=== PATIENT | female | born 1970 | race Caucasian/White ===

== ENCOUNTER → 2016-02-27 | Outpatient (CLI) | payer OTHER ==
--- NOTE | 2016-02-28 08:41 | MM ---
Reason for exam: screening (asymptomatic). Last mammogram was performed 4 years and 1 month ago. Physical Findings: A clinical breast exam by your physician is recommended on an annual basis and results should be correlated with mammographic findings. MG Screening Mammo w CAD Bilateral CC and MLO view(s) were taken. Prior study comparison: February 06, 2012, bilateral digital screening mammo w/CAD. There are scattered fibroglandular densities. There is no discrete abnormality. ASSESSMENT: Negative, BI-RAD 1 RECOMMENDATION: Routine screening mammogram of both breasts in 1 year.
== END | disposition home or self-care (01) ==
LOC: RADMAMWWP 07:09
PROVIDERS: ATTEND Family Medicine
DX: Z12.31 Encounter for screening mammogram for malignant neoplasm of breast (principal)

== ENCOUNTER → 2016-08-09 | Outpatient (CLI) | payer OTHER ==
[2016-08-09 13:00] VITALS: BP 145/87; PULSE 58; RESP 20; TEMP 97; BMI 55.7
[2016-08-09 13:50] LABS: EKG EKG PERFORMED
[2016-08-09 14:42] LABS: Appearance,Urine Clear (Clear); Bilirubin,Urine Negative (Negative); Glucose,Urine (UA) Negative (Negative); Ketones,Urine Negative (Negative); Leukocyte Esterase,Urine Negative (Negative); Nitrite,Urine Negative (Negative); Protein,Urine Negative (Negative); Specific Gravity,Urine 1.013 (1.001-1.035); UA Billing (MACRO vs. MICRO) CHEM; Urobilinogen,Urine <2.0 mg/dL (<2.0)
[2016-08-09 14:44] LABS: CH 32.3; CHCM 33.1; HCT 44.4 % (34.0-46.0); HDW 2.46; HGB 14.7 gm/dL (11.4-16.0); MCH 32.4 pg (25.0-35.0); MCHC 33.1 g/dL (31.0-37.0); MCV 97.9 fL (80.0-100.0); Mean Platelet Volume 7.7; RBC 4.53 m/uL (3.80-5.40); RDW 13.5 % (11.5-15.5); WBC 8.6 k/uL (3.8-10.6)
[2016-08-09 14:56] LABS: ALT 104 U/L (9-52); AST 28 U/L (14-36); Alkaline Phosphatase 104 U/L (38-126); Anion Gap 13 mmol/L; Blood Urea Nitrogen 16 mg/dL (7-17); Calcium 9.6 mg/dL (8.4-10.2); Carbon Dioxide 25 mmol/L (22-30); Chloride 103 mmol/L (98-107); Cholesterol 203 mg/dL (<200); Glucose 102 mg/dL (74-99); HDL Cholesterol 77 mg/dL (40-60); Iron 73 ug/dL (37-170); Non-African American GFR(MDRD) >60 (>60 ml/min/1.73 sqM); Potassium 4.6 mmol/L (3.5-5.1); Sodium 141 mmol/L (137-145); Total Bilirubin 0.4 mg/dL (0.2-1.3); Total Protein 7.1 g/dL (6.3-8.2); Triglycerides 107 mg/dL (<150)
[2016-08-09 15:06] LABS: % Iron Saturation 18.3 % (20-50); Total Iron Binding Capacity 398 ug/dL (265-497)
[2016-08-09 15:11] LABS: Prolactin 6.5 ng/mL (3.0-18.6)
[2016-08-09 15:55] LABS: Hemoglobin A1C 5.4 % (4.2-6.1)
[2016-08-09 15:59] LABS: Vitamin B12 275 pg/mL (239-931)
[2016-08-09 19:30] LABS: DHEA Sulfate 175.6 ug/dL (26.0-430.0)
[2016-08-09 20:51] LABS: Urine Creatinine 110.4 mg/dL
[2016-08-13 19:06] LABS: Thyrotropin Binding Inhib Ig 9 (< 17)
--- NOTE | 2016-08-22 19:32 | P.PN ---
Progress Note - Text DATE OF SERVICE: 08/09/2016 REASON FOR CONSULTATION: Initial bariatric evaluation. HISTORY OF PRESENT ILLNESS: The patient is a 46-year-old female who presents with a long-standing history of morbid obesity. At her height of 5 foot 4.25, her ideal body weight is 144 pounds. Today she comes in at 327 pounds. She is 183 pounds overweight. She has tried calorie stricture and including commercial diets with minimal success. She has a family history of morbid obesity whereby her sister had a sleeve gastrectomy and doing quite well. She has developes lower back pain, hip pain, and diabetes type 2 non-insulin- dependent from her obesity. She reports depression. She is maintaining a food and exercise journal. She is completing medical risk assessment including medical supervised weight loss with her primary care provider. She denies any family history or personal history of Crohn's disease, gastrointestinal cancer, DVTs or pulmonary embolisms. She has a strong family history of gastroesophageal reflux disease including esophageal dysmotility. She comes in for evaluation for bariatric surgery. She is evaluating for the sleeve gastrectomy. PAST MEDICAL HISTORY: 1. Diabetes type 2. 2. Depression. 3. Morbid obesity. 4. Osteoarthritis of the bilateral hips. 5. Osteoarthritis of the bilateral knees. PAST SURGICAL HISTORY: 1. Denies any upper endoscopies. 2. Tubal ligation. HOME MEDICATIONS: 1. Prozac. 2. Metformin. ALLERGIES: None. SOCIAL HISTORY: No active tobacco use. She is a past tobacco user. FAMILY HISTORY: Denies any DVTs, pulmonary embolisms in her family. Denies any ulcerative colitis disease or Crohn's. She does have a family history of morbid obesity. He strong family history of esophageal dysmotility including gastroesophageal reflux disease. Also has a family history of gallbladder disorder. REVIEW OF ORGAN SYSTEMS: CONSTITUTIONAL: t her height of 5 foot 4.25, her ideal body weight is 144 pounds. Today she comes in at 327 pounds. She is 183 pounds overweight. HEENT: Denies any active troubles with vision or hearing. ENDOCRINE: No reports of hypothyroidism. Has insulin resistance with diabetes. CARDIOVASCULAR: No reports of palpitations or heart attacks or chest pain. RESPIRATORY: Has daytime somnolence including snoring, suspicious for sleep apnea. No recent asthma. GI: Denies any bright red blood per rectum, diarrhea or constipation. Has intermittent heartburn. MUSCULOSKELETAL: Describes generalized muscle aches, including lower back pain or joint pain. NEURO: No reports of headaches or seizure disorders. PSYCH: Has depression without suicidal ideation. HEMATOLOGIC: Denies any abnormal bleeding or bruising. PHYSICAL EXAM: VITAL SIGNS: height 5 foot 4.25 inches, weight 327 pounds. BMI 55.7 Vital Signs Temp 97 F L 08/09/16 11:52 Pulse 58 L 08/09/16 11:52 Resp 20 08/09/16 11:52 BP 145/87 08/09/16 11:52 Pulse Ox GENERAL: Well-developed female in no acute distress. HEENT: No scleral icterus. Extraocular was grossly intact. No nasal drainage. NECK: Supple without lymphadenopathy. Neck measurement 14-3/4 inches. CHEST: Nonlabored respirations with equal bilateral excursions. CARDIOVASCULAR: Regular rate. Distal 2+ pulses. ABDOMEN: Obese, soft, nontender, nondistended. MUSCULOSKELETAL: No clubbing, cyanosis, or edema. Gross strength 5/5 distal lower extremities. NEURO: No focal or lateralizing signs. Cranial nerves 2 through 12 grossly within normal limits. PSYCH: Appropriate affect. Alert and oriented to person, place and time. Laboratory Last Values WBC 8.6 k/uL (3.8-10.6) 08/09/16 13:44 RBC 4.53 m/uL (3.80-5.40) 08/09/16 13:44 Hgb 14.7 gm/dL (11.4-16.0) 08/09/16 13:44 Hct 44.4 % (34.0-46.0) 08/09/16 13:44 MCV 97.9 fL (80.0-100.0) 08/09/16 13:44 MCH 32.4 pg (25.0-35.0) 08/09/16 13:44 MCHC 33.1 g/dL (31.0-37.0) 08/09/16 13:44 RDW 13.5 % (11.5-15.5) 08/09/16 13:44 Plt Count 315 k/uL (150-450) 08/09/16 13:44 Sodium 141 mmol/L (137-145) 08/09/16 13:44 Potassium 4.6 mmol/L (3.5-5.1) 08/09/16 13:44 Chloride 103 mmol/L (98-107) 08/09/16 13:44 Carbon Dioxide 25 mmol/L (22-30) 08/09/16 13:44 Anion Gap 13 mmol/L 08/09/16 13:44 BUN 16 mg/dL (7-17) 08/09/16 13:44 Creatinine 0.90 mg/dL (0.52-1.04) 08/09/16 13:44 Est GFR (MDRD) Af Amer >60 (>60 ml/min/1.73 sqM) 08/09/16 13:44 Est GFR (MDRD) Non-Af >60 (>60 ml/min/1.73 sqM) 08/09/16 13:44 Glucose 102 mg/dL (74-99) H 08/09/16 13:[address] Glu mg/dL 108 mg/dL 08/09/16 13:44 Hemoglobin A1c 5.4 % (4.2-6.1) 08/09/16 13:44 Calcium 9.6 mg/dL (8.4-10.2) 08/09/16 13:44 Iron 73 ug/dL (37-170) 08/09/16 13:44 TIBC 398 ug/dL (265-497) 08/09/16 13:44 % Saturation 18.3 % (20-50) L 08/09/16 13:44 Ferritin 15 ng/mL (6-137) 08/09/16 13:44 Total Bilirubin 0.4 mg/dL (0.2-1.3) 08/09/16 13:44 AST 28 U/L (14-36) 08/09/16 13:44 ALT 104 U/L (9-52) H 08/09/16 13:44 Alkaline Phosphatase 104 U/L (38-126) 08/09/16 13:44 Total Protein 7.1 g/dL (6.3-8.2) 08/09/16 13:44 Albumin 4.1 g/dL (3.5-5.0) 08/09/16 13:44 Triglycerides 107 mg/dL (<150) 08/09/16 13:44 Cholesterol 203 mg/dL (<200) H 08/09/16 13:44 LDL Cholesterol, Calc 105 mg/dL (0-99) H 08/09/16 13:44 HDL Cholesterol 77 mg/dL (40-60) H 08/09/16 13:44 Vitamin B1 59 ug/L (38-122) 08/09/16 13:44 Vitamin B12 275 pg/mL (239-931) 08/09/16 13:44 Vitamin D 25-Hydroxy 20.6 ng/mL (30.0-100.0) L 08/09/16 13:44 Folate 12.80 ng/mL (>2.75) 08/09/16 13:44 TSH 2.390 mIU/L (0.465-4.680) 08/09/16 13:44 Prolactin 6.5 ng/mL (3.0-18.6) 08/09/16 13:44 DHEA Sulfate 175.6 ug/dL (26.0-430.0) 08/09/16 13:44 Cortisol 7 ug/dL 08/09/16 13:44 Urine Color Yellow 08/09/16 13:44 Urine Appearance Clear (Clear) 08/09/16 13:44 Urine pH 5.0 (5.0-8.0) 08/09/16 13:44 Ur Specific Banner 1.013 (1.001-1.035) 08/09/16 13:44 Urine Protein Negative (Negative) 08/09/16 13:44 Urine Glucose (UA) Negative (Negative) 08/09/16 13:44 Urine Ketones Negative (Negative) 08/09/16 13:44 Urine Blood Negative (Negative) 08/09/16 13:44 Urine Nitrite Negative (Negative) 08/09/16 13:44 Urine Bilirubin Negative (Negative) 08/09/16 13:44 Urine Urobilinogen <2.0 mg/dL (<2.0) 08/09/16 13:44 Ur Leukocyte Esterase Negative (Negative) 08/09/16 13:44 Ur Random Microalbumin <0.3 mg/dL (0.0-1.9) 08/09/16 13:44 U Creat (Microalbumin) 110.4 mg/dL 08/09/16 13:44 Microalb/Creat Ratio <30 mg/g Creat (0-30) 08/09/16 13:44 TSH Bind Inhibitory Ig 9 (< 17) 08/09/16 13:44 EKG EKG PERFORMED 08/09/16 13:44 Miscellaneous Test Heroin, Urine 08/09/16 13:51 Misc Test Result See comment 08/09/16 13:51 ASSESSMENT: 1. Morbid obesity due to excess calories. 2. Body mass index of 55.7. 3. Diabetes type 2. 4. Family history of morbid obesity. 5. Sleep disturbance, obstructive sleep apnea. 6. Depression. 7. Family history of gastroesophageal reflux disease. 8. Osteoarthritis of the bilateral hips. 9. Osteoarthritis of the bilateral knees. 10. Gastroesophageal reflux disease. 11. Family history of esophageal dysmotility. 12. Dietary surveillance and counseling. 13. Hypertension. 14. Family history of gallbladder disease. 15. Vitamin D deficiency. 16. Hypercholesterolemia. PLAN: 1. I have recommended that she proceed with an upper endoscopy as she has history of reflux disease. 2. Per insurance guidelines, medical supervised weight loss was described. Also recommend food and exercise journal. 3. Recommend a bariatric metabolic panel to evaluate for micro, including macronutrient deficiencies. 4. Dietary surveillance and counseling was reviewed. I have asked her to increase her protein intake to at least 70 grams daily. 5. Recommend follow-up after upper endoscopy. 6. Upon further discussion, she tested positive for a questionnaire for obstructive sleep apnea. Referral to the sleep center has also been described. 7. Urine metabolite and drug screening per insurance guidelines. 8. Psych assessment recommended with history of depression. 9. She reports intermittent right upper quadrant abdominal pain including family history of gallbladder disease, recommend right upper quadrant ultrasound for gallstones. Thank you for this consultation.
== END | disposition home or self-care (01) ==
LOC: BARWHC3 10:14
PROVIDERS: ATTEND Surgery Plastic and Reconstructive Surgery
DX: E66.01 Morbid (severe) obesity due to excess calories (principal); E11.9 Type 2 diabetes mellitus without complications; G47.33 Obstructive sleep apnea (adult) (pediatric); F32.9 Major depressive disorder, single episode, unspecified; M16.0 Bilateral primary osteoarthritis of hip; M17.0 Bilateral primary osteoarthritis of knee; K21.9 Gastro-esophageal reflux disease without esophagitis; I10 Essential (primary) hypertension; E55.9 Vitamin D deficiency, unspecified; E78.00 Pure hypercholesterolemia, unspecified; D35.2 Benign neoplasm of pituitary gland; E88.1 Lipodystrophy, not elsewhere classified; E24.0 Pituitary-dependent Cushing's disease; D50.8 Other iron deficiency anemias; E44.1 Mild protein-calorie malnutrition; Z79.899 Other long term (current) drug therapy; Z98.84 Bariatric surgery status; Z68.43 Body mass index [BMI] 50.0-59.9, adult
CPT/HCPCS: 84425; 80061; 80053; 83519; 82533; 82607; 82728; 83036; 82746; 83540; 83550; 84443; 85027; 81003; 84146; 82627; 82306; 80307; 82043; 82570; 93005; 36415; G0480; G0463; 80356; 99201

== ENCOUNTER → 2016-08-23 | Outpatient (CLI) | payer OTHER ==
--- NOTE | 2016-08-23 07:29 | US ---
EXAMINATION TYPE: US gallbladder DATE OF EXAM: 08/23/2016 COMPARISON: NONE CLINICAL HISTORY: R10.11 RUQ ABD PAIN. large habitus, nausea, pain EXAM MEASUREMENTS: Liver Length: 20.7 cm Gallbladder Wall: 0.7 cm CBD: 0.9 cm Right Kidney: 9.9 x 4.5 x 4.5 cm Pancreas: Obscured by bowel gas Liver: hepatomegaly, attenuating Gallbladder: contracted with stones, GEENA sign Evidence for sonographic Marrero's sign: no CBD: dilated Right Kidney: wnl IMPRESSION: 1. Probable hepatic steatosis with hepatomegaly. 2. The gallbladder is full of gallstones. Common bile duct is dilated.
--- NOTE | 2016-08-23 12:03 | NM ---
EXAMINATION TYPE: NM hepatobiliary wo EF DATE OF EXAM: 08/23/2016 COMPARISON: NONE HISTORY: Right upper quadrant pain TECHNIQUE: After the intravenous administration of 5.49 mCi Tc 99m Mebrofenin hepatobiliary scintigra phy is performed. Immediate images post injection. FINDINGS: Gallbladder activity is never definitely identified as far as 4 hours. Small bowel activity is noted within 20 minutes. Ejection fraction was not performed. IMPRESSION: MARKED GALLBLADDER DYSFUNCTION VERSUS OCCLUDED CYSTIC DUCT.
== END | disposition home or self-care (01) ==
LOC: RADUSWWP 06:55
PROVIDERS: ATTEND Surgery Plastic and Reconstructive Surgery
DX: K80.20 Calculus of gallbladder without cholecystitis without obstruction (principal); R16.1 Splenomegaly, not elsewhere classified; R10.11 Right upper quadrant pain
CPT/HCPCS: 76705; 78226; A9537

== ENCOUNTER 2016-08-29 09:16 | Day surgery (SDC) | payer OTHER ==
[2016-08-28 08:28] VITALS: BMI 56.1
--- NOTE | 2016-08-29 07:39 | P.GSHP ---
History of Present Illness H&P Date: 08/29/16 CHIEF COMPLAINT: GERD HISTORY OF PRESENT ILLNESS: The patient is a 46-year-old female who presents reports gastroesophageal reflux disease. Upper endoscopy was offered for further evaluation and management. PAST MEDICAL HISTORY: Please see list. PAST SURGICAL HISTORY: Please see list. MEDICATIONS: Please see list. ALLERGIES: Please see list. SOCIAL HISTORY: No illicit drug use FAMILY HISTORY: No reports of Crohn disease or ulcerative colitis. REVIEW OF ORGAN SYSTEMS: CONSTITUTIONAL: No reports of fevers or chills. GI: Denies any blood in stools or constipation. PHYSICAL EXAM: VITAL SIGNS: Stable GENERAL: Well-developed and pleasant in no acute distress. HEENT: No scleral icterus. Extraocular movements grossly intact. Moist buccal mucosa. NECK: Supple without lymphadenopathy. CHEST: Unlabored respirations. Equal bilateral excursions. CARDIOVASCULAR: Regular rate and rhythm. Distal 2+ pulses. ABDOMEN: Soft, nondistended. MUSCULOSKELETAL: No clubbing, cyanosis, or edema. ASSESSMENT: 1. Gastroesophageal reflux disease PLAN: 1. Recommend proceeding with an upper endoscopy Past Medical History Past Medical History: No Reported History Additional Past Medical History / Comment(s): VARICOSE VEINS. History of Any Multi-Drug Resistant Organisms: None Reported Past Surgical History: Tubal Ligation Additional Past Surgical History / Comment(s): tubal 2004 Past Anesthesia/Blood Transfusion Reactions: No Reported Reaction Past Psychological History: No Psychological Hx Reported Additional Psychological History / Comment(s): . Smoking Status: Never smoker Past Alcohol Use History: Occasional Past Drug Use History: None Reported - Past Family History Father Family Medical History: Cancer, Congestive Heart Failure (CHF), COPD, Diabetes Mellitus Additional Family Medical History / Comment(s): PROSTATE CANCER Mother Family Medical History: Diabetes Mellitus Medications and Allergies Home Medications Medication Instructions Recorded Confirmed Type Cholecalciferol (Vitamin D3) 10,000 unit PO DAILY 08/28/16 08/28/16 History [Vitamin D3] Ibuprofen 400 mg PO DAILY PRN 08/28/16 08/28/16 History Multivitamins, Thera [Multivitamin 1 tab PO DAILY 08/28/16 08/28/16 History (formulary)] Allergies Allergy/AdvReac Type Severity Reaction Status Date / Time No Known Allergies Allergy Verified 08/28/16 08:17
[~2016-08-29 09:16] MED LIST: LACTATED RINGERS 1,000 ML IV SCH
[2016-08-29 09:57] VITALS: RESP 16; TEMP 98
[2016-08-29] MEDS ORDERED: LIDOCAINE 1% 20 ML VIAL (10MG/ML) FOR IV START INTRADERMA ONE (09:59)
[2016-08-29] MEDS ORDERED: MIDAZOLAM 2 MG/2 ML VIAL ONE (10:19)
[2016-08-29] MEDS ORDERED: PROPOFOL 10 MG/ML 20 ML VIAL IV ONE (10:19)
[2016-08-29] MEDS ORDERED: fentaNYL (PF) 50 MCG/ML 2 ML AMP ONE (10:19)
--- NOTE | 2016-08-29 10:32 | P.PCN ---
Date of Procedure: 08/29/16 Preoperative Diagnosis: Postoperative Diagnosis: Procedure(s) Performed: Implants: Indications for Procedure: Operative Findings: Description of Procedure: PREOPERATIVE DIAGNOSIS: Gastroesophageal reflux disease. Morbid obesity. POSTOPERATIVE DIAGNOSIS: Morbid obesity. Gastritis. Superficial gastric ulcers. Gastroesophageal reflux disease. Diaphragmatic hiatal hernia without obstruction. OPERATION: Esophagogastroduodenoscopy with biopsies along antrum. SURGEON: Mandi Nunez MD ANESTHESIA: MAC. INDICATIONS: The patient is a 46-year-old female who presents with a history of reflux disease. Benefits and risks of the procedure were described. Informed consent was obtained. DESCRIPTION: The patient was brought into the endoscopy suite and laid in the left lateral decubitus position. An Olympus gastroscope was passed along the posterior oropharynx down to the distal esophagus where the squamocolumnar junction was encountered at 35 cm from the incisors. The stomach was entered and no bile reflux was found. Additional findings are listed below. Biopsies with cold forceps were obtained of the antrum. The first through third portion of the duodenum was examined and unremarkable. Retroflexion of the scope confirmed Hill grade 3 lower esophageal valve. The squamocolumnar junction demostrated LA grade A erosive esophagitis. The stomach was desufflated. The patient tolerated the procedure well. FINDINGS: Squamocolumnar junction 35 cm from the incisors. Diaphragmatic hiatus at 36 cm. Hiatal hernia 1 cm. Hill grade 3 lower esophageal valve. LA grade A erosive esophagitis. Superficial gastric ulcers without bleeding. Superficial gastritis along the antrum. No active duodenitis. RECOMMENDATIONS: Start medical therapy. Further recommendations pending results of pathology report. Upper endoscopy as needed. Plan - Discharge Summary New Discharge Prescriptions: New Omeprazole 40 mg PO DAILY #30 capsule. No Action Multivitamins, Thera [Multivitamin (formulary)] 1 tab PO DAILY Ibuprofen 400 mg PO DAILY PRN PRN Reason: Pain Cholecalciferol (Vitamin D3) [Vitamin D3] 10,000 unit PO DAILY Discharge Medication List Cholecalciferol (Vitamin D3) [Vitamin D3] 10,000 unit PO DAILY 08/28/16 [History ] Ibuprofen 400 mg PO DAILY PRN 08/28/16 [History] Multivitamins, Thera [Multivitamin (formulary)] 1 tab PO DAILY 08/28/16 [History ] Omeprazole 40 mg PO DAILY #30 capsule. 08/29/16 [Rx] Follow up Appointment(s)/Referral(s): Mandi Nunez MD [STAFF PHYSICIAN] - 09/19/16 Patient Instructions/Handouts: Gastroesophageal Reflux Disease (GEN), Hiatal Hernia (GEN), Gastritis (GEN) Activity/Diet/Wound Care/Special Instructions: Your medication has been sent to your local pharmacy Discharge Disposition: HOME SELF-CARE
[2016-08-29 10:51] VITALS: BP 124/74; PULSE 64
== END 2016-08-29 11:13 | disposition home or self-care (01) ==
LOC: ORWHC2ENDO 09:16
PROVIDERS: ATTEND Surgery Plastic and Reconstructive Surgery
DX: K29.30 Chronic superficial gastritis without bleeding (principal); K21.0 Gastro-esophageal reflux disease with esophagitis; K25.9 Gastric ulcer, unspecified as acute or chronic, without hemorrhage or perforation; E66.01 Morbid (severe) obesity due to excess calories; K44.9 Diaphragmatic hernia without obstruction or gangrene
CPT/HCPCS: 88305; 88342; 84703; 43239; J2250; J3010; J2704

== ENCOUNTER → 2016-09-10 | Outpatient (CLI) | payer OTHER ==
[2016-09-10 17:46] VITALS: BMI 56.5
== END | disposition home or self-care (01) ==
LOC: BARWHC3 08:39
PROVIDERS: ATTEND Surgery Plastic and Reconstructive Surgery
DX: E66.01 Morbid (severe) obesity due to excess calories (principal); Z71.3 Dietary counseling and surveillance
CPT/HCPCS: 97804

== ENCOUNTER → 2016-09-19 | Outpatient (CLI) | payer OTHER ==
[2016-09-19 15:07] VITALS: BP 142/75; PULSE 60; TEMP 99; BMI 54.8
--- NOTE | 2016-09-30 16:06 | P.PN ---
Progress Note - Text DATE OF SERVICE: 09/19/2016 REASON FOR CONSULTATION: Bariatric assessment. HISTORY OF PRESENT ILLNESS: The patient is a 46-year-old female who presents with a long-standing history of morbid obesity. At her height of 5 foot 4.25, her ideal body weight is 144 pounds. Today she comes in at 321 pounds. [place] highest weight was 331 pounds. She has lost 10 pounds in 1 month. She is 177 pounds overweight. She completed an upper endoscopy findings consistent with erosive esophagitis including hiatal hernia. Her body mass index is reduced from 56.5 down to 54.8. She is evaluating for a sleeve gastrectomy. Separately, she completed additional imaging with findings consistent with gallstones. PAST MEDICAL HISTORY: 1. Diabetes type 2. 2. Depression. 3. Morbid obesity. 4. Osteoarthritis of the bilateral hips. 5. Osteoarthritis of the bilateral knees. 6. Gallstones 7. Gastroesophageal reflux disease. PAST SURGICAL HISTORY: 1. Upper endoscopy. 2. Tubal ligation. HOME MEDICATIONS: 1. Prozac. 2. Metformin. 3. Omeprazole. ALLERGIES: None. SOCIAL HISTORY: No active tobacco use. She is a past tobacco user. FAMILY HISTORY: Denies any DVTs, pulmonary embolisms in her family. Denies any ulcerative colitis disease or Crohn's. She does have a family history of morbid obesity. He strong family history of esophageal dysmotility including gastroesophageal reflux disease. Also has a family history of gallbladder disorder. REVIEW OF ORGAN SYSTEMS: CONSTITUTIONAL: Height of 5 foot 4.25, her ideal body weight is 144 pounds. She has lost 10 pounds at weight of 321 pounds. She is 177 pounds overweight. HEENT: Denies any active troubles with vision or hearing. ENDOCRINE: No reports of hypothyroidism. Has insulin resistance with diabetes. CARDIOVASCULAR: No reports of palpitations or heart attacks or chest pain. RESPIRATORY: Has daytime somnolence including snoring, suspicious for sleep apnea. No recent asthma. GI: Denies any bright red blood per rectum, diarrhea or constipation. Has intermittent heartburn. MUSCULOSKELETAL: Describes generalized muscle aches, including lower back pain or joint pain. NEURO: No reports of headaches or seizure disorders. PSYCH: Has depression without suicidal ideation. HEMATOLOGIC: Denies any abnormal bleeding or bruising. SKIN: Has panniculitis. No skin cancer. PHYSICAL EXAM: VITAL SIGNS: Height 5 foot 4.25 inches, weight 321 pounds. BMI 54.8. Vital Signs 09/19/16 15:03 Temperature 99.0 F Pulse Rate 60 Blood Pressure 142/75 GENERAL: Well-developed female in no acute distress. HEENT: No scleral icterus. Extraocular was grossly intact. No nasal drainage. NECK: Supple without lymphadenopathy. CHEST: Nonlabored respirations with equal bilateral excursions. CARDIOVASCULAR: Regular rate. Distal 2+ pulses. ABDOMEN: Obese, soft, nontender, nondistended. MUSCULOSKELETAL: No clubbing, cyanosis, or edema. Gross strength 5/5 distal lower extremities. NEURO: No focal or lateralizing signs. Cranial nerves 2 through 12 grossly within normal limits. PSYCH: Appropriate affect. Alert and oriented to person, place and time. SKIN: Well perfused. Good skin turgor. LABS: Vitamin D deficiency. STUDIES: Ultrasound of the right upper quadrant consistent with multiple gallstones. EGD: Squamocolumnar junction 35 cm from the incisors. Diaphragmatic hiatus at 36 cm. Hiatal hernia 1 cm. Hill grade 3 lower esophageal valve. LA grade A erosive esophagitis. Superficial gastric ulcers without bleeding. Superficial gastritis along the antrum. No active duodenitis. ASSESSMENT: 1. Morbid obesity due to excess calories. 2. Body mass index of 56.5 to 54.8. 3. Diabetes type 2. 4. Family history of morbid obesity. 5. Sleep disturbance, obstructive sleep apnea. 6. Depression. 7. Family history of gastroesophageal reflux disease. 8. Osteoarthritis of the bilateral hips. 9. Osteoarthritis of the bilateral knees. 10. Gastroesophageal reflux disease. 11. Family history of esophageal dysmotility. 12. Dietary surveillance and counseling. 13. Hypertension. 14. Family history of gallbladder disease. 15. Vitamin D deficiency. 16. Hypercholesterolemia. 17. Gallstones. PLAN: 1. The [place] bariatric surgical collaborative data was reviewed in detail including benefits, risks of a band, sleeve, Fred-en-Y gastric bypass. 2. She has selected for a sleeve gastrectomy. Potential risk of increased gastroesophageal reflux disease was reviewed. 3. DVT prophylaxis. 4. Antibiotic prophylaxis. 5. Will need inpatient hospitalization approximate 2 nights. 6. Recommend a 2 week high protein low caloric diet. 7. She has gallstones and recommend laparoscopic cholecystectomy. 8. Additionally, robotic approach may be of benefit. 9. An 8 page bariatric second-generation consent form was reviewed in detail.
== END | disposition home or self-care (01) ==
LOC: BARWHC3 13:10
PROVIDERS: ATTEND Surgery Plastic and Reconstructive Surgery
DX: Z48.815 Encounter for surgical aftercare following surgery on the digestive system (principal); E66.01 Morbid (severe) obesity due to excess calories; E11.9 Type 2 diabetes mellitus without complications; G47.33 Obstructive sleep apnea (adult) (pediatric); F32.9 Major depressive disorder, single episode, unspecified; M16.0 Bilateral primary osteoarthritis of hip; M17.0 Bilateral primary osteoarthritis of knee; K21.9 Gastro-esophageal reflux disease without esophagitis; I10 Essential (primary) hypertension; E55.9 Vitamin D deficiency, unspecified; E78.00 Pure hypercholesterolemia, unspecified; K80.20 Calculus of gallbladder without cholecystitis without obstruction; Z68.43 Body mass index [BMI] 50.0-59.9, adult; Z79.84 Long term (current) use of oral hypoglycemic drugs; Z79.899 Other long term (current) drug therapy; Z98.84 Bariatric surgery status
CPT/HCPCS: 99211

== ENCOUNTER → 2016-10-23 | Outpatient (CLI) | payer OTHER ==
[2016-10-23 17:20] LABS: EKG EKG PERFORMED
[2016-10-23 17:44] LABS: Basophils # (A) 0.1 k/uL (0-0.2); Basophils % (A) 1 %; CH 32.1; CHCM 34.5; Eosinophils # (A) 0.1 k/uL (0-0.7); Eosinophils % (A) 1 %; HCT 40.5 % (34.0-46.0); HDW 2.58; Luc # (Auto) 0.27; Luc % (Auto) 4; Lymphocytes % (A) 27 %; MCH 32.4 pg (25.0-35.0); MCHC 34.6 g/dL (31.0-37.0); MCV 93.7 fL (80.0-100.0); Mean Platelet Volume 7.6; Monocytes # (A) 0.6 k/uL (0-1.0); Monocytes % (A) 9 %; Neutrophils # (A) 4.3 k/uL (1.3-7.7); Neutrophils % (A) 59 %; RBC 4.33 m/uL (3.80-5.40); RDW 13.2 % (11.5-15.5); WBC 7.4 k/uL (3.8-10.6); WBC (Perox) 7.82
[2016-10-23 17:50] LABS: ALT 107 U/L (9-52); AST 54 U/L (14-36); Alkaline Phosphatase 64 U/L (38-126); Anion Gap 11 mmol/L; Blood Urea Nitrogen 23 mg/dL (7-17); Calcium 9.8 mg/dL (8.4-10.2); Carbon Dioxide 24 mmol/L (22-30); Chloride 104 mmol/L (98-107); Glucose 88 mg/dL (74-99); Non-African American GFR(MDRD) >60 (>60 ml/min/1.73 sqM); Potassium 4.1 mmol/L (3.5-5.1); Sodium 139 mmol/L (137-145); Total Bilirubin 0.4 mg/dL (0.2-1.3); Total Protein 6.9 g/dL (6.3-8.2)
== END | disposition home or self-care (01) ==
LOC: LABPAT 16:54
PROVIDERS: ATTEND Surgery Plastic and Reconstructive Surgery
DX: Z01.810 Encounter for preprocedural cardiovascular examination (principal); Z01.812 Encounter for preprocedural laboratory examination
CPT/HCPCS: 36415; 80053; 85025; 93005

== ENCOUNTER 2016-10-29 08:50 | Inpatient (IN) | payer OTHER ==
--- NOTE | 2016-10-29 07:50 | P.GSHP ---
History of Present Illness H&P Date: 10/29/16 DATE OF SERVICE: 10/29/2016 REASON FOR CONSULTATION: Bariatric assessment. HISTORY OF PRESENT ILLNESS: The patient is a 46-year-old female who presents with a long-standing history of morbid obesity. At her height of 5 foot 4.25, her ideal body weight is 144 pounds. Today she comes in at 321 pounds. [place] highest weight was 331 pounds. She has lost 10 pounds in 1 month. She is 177 pounds overweight. She completed an upper endoscopy findings consistent with erosive esophagitis including hiatal hernia. Her body mass index is reduced from 56.5 down to 54.8. She is evaluating for a sleeve gastrectomy. Separately, she completed additional imaging with findings consistent with gallstones. PAST MEDICAL HISTORY: 1. Diabetes type 2. 2. Depression. 3. Morbid obesity. 4. Osteoarthritis of the bilateral hips. 5. Osteoarthritis of the bilateral knees. 6. Gallstones 7. Gastroesophageal reflux disease. PAST SURGICAL HISTORY: 1. Upper endoscopy. 2. Tubal ligation. HOME MEDICATIONS: 1. Prozac. 2. Metformin. 3. Omeprazole. ALLERGIES: None. SOCIAL HISTORY: No active tobacco use. She is a past tobacco user. FAMILY HISTORY: Denies any DVTs, pulmonary embolisms in her family. Denies any ulcerative colitis disease or Crohn's. She does have a family history of morbid obesity. He strong family history of esophageal dysmotility including gastroesophageal reflux disease. Also has a family history of gallbladder disorder. REVIEW OF ORGAN SYSTEMS: CONSTITUTIONAL: Height of 5 foot 4.25, her ideal body weight is 144 pounds. She has lost 10 pounds at weight of 321 pounds. She is 177 pounds overweight. HEENT: Denies any active troubles with vision or hearing. ENDOCRINE: No reports of hypothyroidism. Has insulin resistance with diabetes. CARDIOVASCULAR: No reports of palpitations or heart attacks or chest pain. RESPIRATORY: Has daytime somnolence including snoring, suspicious for sleep apnea. No recent asthma. GI: Denies any bright red blood per rectum, diarrhea or constipation. Has intermittent heartburn. MUSCULOSKELETAL: Describes generalized muscle aches, including lower back pain or joint pain. NEURO: No reports of headaches or seizure disorders. PSYCH: Has depression without suicidal ideation. HEMATOLOGIC: Denies any abnormal bleeding or bruising. SKIN: Has panniculitis. No skin cancer. PHYSICAL EXAM: VITAL SIGNS: Height 5 foot 4.25 inches, weight 321 pounds. BMI 54.8. GENERAL: Well-developed female in no acute distress. HEENT: No scleral icterus. Extraocular was grossly intact. No nasal drainage. NECK: Supple without lymphadenopathy. CHEST: Nonlabored respirations with equal bilateral excursions. CARDIOVASCULAR: Regular rate. Distal 2+ pulses. ABDOMEN: Obese, soft, nontender, nondistended. MUSCULOSKELETAL: No clubbing, cyanosis, or edema. Gross strength 5/5 distal lower extremities. NEURO: No focal or lateralizing signs. Cranial nerves 2 through 12 grossly within normal limits. PSYCH: Appropriate affect. Alert and oriented to person, place and time. SKIN: Well perfused. Good skin turgor. LABS: Vitamin D deficiency. STUDIES: Ultrasound of the right upper quadrant consistent with multiple gallstones. EGD: Squamocolumnar junction 35 cm from the incisors. Diaphragmatic hiatus at 36 cm. Hiatal hernia 1 cm. Hill grade 3 lower esophageal valve. LA grade A erosive esophagitis. Superficial gastric ulcers without bleeding. Superficial gastritis along the antrum. No active duodenitis. ASSESSMENT: 1. Morbid obesity due to excess calories. 2. Body mass index of 56.5 to 54.8. 3. Diabetes type 2. 4. Family history of morbid obesity. 5. Sleep disturbance, obstructive sleep apnea. 6. Depression. 7. Family history of gastroesophageal reflux disease. 8. Osteoarthritis of the bilateral hips. 9. Osteoarthritis of the bilateral knees. 10. Gastroesophageal reflux disease. 11. Family history of esophageal dysmotility. 12. Dietary surveillance and counseling. 13. Hypertension. 14. Family history of gallbladder disease. 15. Vitamin D deficiency. 16. Hypercholesterolemia. 17. Gallstones. PLAN: 1. The [place] bariatric surgical collaborative data was reviewed in detail including benefits, risks of a band, sleeve, Fred-en-Y gastric bypass. 2. She has selected for a sleeve gastrectomy. Potential risk of increased gastroesophageal reflux disease was reviewed. 3. DVT prophylaxis. 4. Antibiotic prophylaxis. 5. Will need inpatient hospitalization approximate 2 nights. 6. Recommend a 2 week high protein low caloric diet. 7. She has gallstones and recommend laparoscopic cholecystectomy. 8. Additionally, robotic approach may be of benefit. 9. An 8 page bariatric second-generation consent form was reviewed in detail. Past Medical History Past Medical History: No Reported History Additional Past Medical History / Comment(s): hiatal hernia, joint pain History of Any Multi-Drug Resistant Organisms: None Reported Past Surgical History: Orthopedic Surgery, Tubal Ligation Additional Past Surgical History / Comment(s): EGD, right thumb surg. Past Anesthesia/Blood Transfusion Reactions: No Reported Reaction Smoking Status: Never smoker - Past Family History Father Family Medical History: Cancer, Congestive Heart Failure (CHF), COPD, Diabetes Mellitus Mother Family Medical History: Diabetes Mellitus Medications and Allergies Home Medications Medication Instructions Recorded Confirmed Type Cholecalciferol (Vitamin D3) 10,000 unit PO DAILY 08/28/16 10/23/16 History [Vitamin D3] Multivitamins, Thera [Multivitamin 1 tab PO DAILY 08/28/16 10/23/16 History (formulary)] Omeprazole 40 mg PO DAILY PRN 10/23/16 10/23/16 History Allergies Allergy/AdvReac Type Severity Reaction Status Date / Time No Known Allergies Allergy Verified 10/23/16 14:44
[~2016-10-29 08:50] MED LIST changes: +ACETAMINOPHEN IV (For NPO) 1,000 MG in EMPTY BAG 1 BAG IVPB ONE; +CHLORHEXIDINE GLUCONATE 15 ML CUP MUCOUS MEM ONE; +ENOXAPARIN 40 MG/0.4 ML SYRINGE SQ STA; +HYDROmorphone 1 MG/ML 1 ML SYRINGE IVP PRN; -LACTATED RINGERS 1,000 ML IV SCH; +PANTOPRAZOLE 40 MG/10 ML VIAL IV STA; +SCOPOLAMINE 1.5MG/72HR PATCH TRANSDERM STA; +ceFAZolin 3 GM in SODIUM CHLORIDE 0.9% 100 ML IVPB ONE; +fentaNYL (PF) 50 MCG/ML 2 ML AMP IV PRN
[2016-10-29] MEDS: LACTATED RINGERS 1,000 ML IV SCH (09:26)
[2016-10-29] MEDS ORDERED: ONDANSETRON 4 MG/2 ML VIAL IVP ONE (09:32)
[2016-10-29] MEDS ORDERED: DEXAMETHASONE SOD PHOSPHATE 10 MG/ML 1 ML VIAL IV ONE (09:32)
[2016-10-29] MEDS ORDERED: LIDOCAINE 1% 20 ML VIAL (10MG/ML) FOR IV START INTRADERMA ONE (09:33)
[2016-10-29] MEDS ORDERED: VECURONIUM 10 MG VIAL IV ONE (12:32)
[2016-10-29] MEDS ORDERED: GLYCOPYRROLATE 0.2 MG/ML 2 ML VIAL ONE (12:32)
[2016-10-29] MEDS ORDERED: MIDAZOLAM 2 MG/2 ML VIAL ONE (12:32)
[2016-10-29] MEDS ORDERED: HYDROmorphone (PF) 1 MG/ML ONE (12:32)
[2016-10-29] MEDS ORDERED: LIDOCAINE 1% INJ 10MG/ML (20 ML MDV) ONE (12:32)
[2016-10-29] MEDS ORDERED: LABETALOL 5 MG/ML VIAL MDV ONE (12:32)
[2016-10-29] MEDS ORDERED: NEOSTIGMINE 1 MG/ML 10 ML VIAL ONE (12:32)
[2016-10-29] MEDS ORDERED: fentaNYL (PF) 50 MCG/ML 2 ML AMP ONE (12:32)
[2016-10-29] MEDS ORDERED: ONDANSETRON 4 MG/2 ML VIAL ONE (12:32)
[2016-10-29] MEDS ORDERED: PROPOFOL 10 MG/ML 20 ML VIAL IV ONE (12:32)
[2016-10-29] MEDS ORDERED: KETOROLAC 30 MG/ML 1 ML VIAL ONE (12:32)
[2016-10-29] MEDS ORDERED: BUPIVACAINE-EPI 0.5%-1:200,000 10 ML VIAL SQ ONE (13:15)
[2016-10-29] MEDS ORDERED: LACTATED RINGERS 1,000 ML IV ONE (15:49)
--- NOTE | 2016-10-29 16:26 | P.PCN ---
Date of Procedure: 10/29/16 Preoperative Diagnosis: Morbid obesity, gallstones Postoperative Diagnosis: Same Procedure(s) Performed: Robotic-assisted Laparoscopic cholecystectomy Robotic-assisted Laparoscopic lysis of adhesions over 30 minutes Robotic-assisted Laparoscopic sleeve gastrectomy, 40-Swedish bougie Esophagogastroduodenoscopy, intraoperative Implants: Anesthesia: GETA, local Surgeon: Mandi Nunez Estimated Blood Loss (ml): 10 Pathology: none sent (Gallbladder, sleeve gastrectomy) Disposition: floor Indications for Procedure: Operative Findings: Negative leak test, Adhesions along the gallbladder with over 5 cm gallstone Description of Procedure:
[2016-10-29] MEDS ORDERED: HYDROcodone/APAP 15 ML SOLUTION PO PRN (16:39)
[2016-10-29] MEDS ORDERED: diphenhydrAMINE 50 MG/ML 1 ML VIAL IVP PRN (16:39)
[2016-10-29] MEDS ORDERED: ONDANSETRON 4 MG/2 ML VIAL IVP PRN (16:39)
[2016-10-29] MEDS ORDERED: NALOXONE 0.4 MG/ML 1 ML VIAL IV PRN (16:39)
[2016-10-29 17:18] VITALS: BMI 55.0
[2016-10-29] MEDS: SIMETHICONE 40 MG/0.6 ML DROPS 2,000 MG/30 ML BOTTLE PO SCH ×2 (17:20→23:51)
[2016-10-29] MEDS: HYOSCYAMINE ORAL DROPS 1.875 MG/15 ML BOTTLE PO SCH ×2 (17:20→23:51)
[2016-10-29] MEDS: 0.9% NACL WITH KCL 20 MEQ/L 1,000 ML IV SCH (17:25)
[2016-10-29] MEDS: HYDROmorphone 1 MG/ML 1 ML SYRINGE IVP PRN ×3 (17:58→23:50)
--- NOTE | 2016-10-29 19:14 | P.PN ---
Progress Note - Text Patient seen and evaluated. Intraoperative findings were described including a large 5 cm gallstone. Patient reports waves of nausea. She did not receive her ordered scopolamine patch preop despite being ordered. Will start patch now. Ice chips for now. Upper GI in the morning with start of bariatric clears to follow.
[2016-10-29] MEDS ORDERED: SCOPOLAMINE 1.5MG/72HR PATCH TRANSDERM SCH (19:15)
[2016-10-29] MEDS: ceFAZolin 3 GM in SODIUM CHLORIDE 0.9% 100 ML IVPB SCH (19:50)
[2016-10-29] MEDS: ALBUTEROL NEBULIZED 2.5 MG/3 ML INHALATION SCH (21:09)
[2016-10-30] MEDS: ceFAZolin 3 GM in SODIUM CHLORIDE 0.9% 100 ML IVPB SCH (04:12)
[2016-10-30] MEDS: HYDROmorphone 1 MG/ML 1 ML SYRINGE IVP PRN ×2 (04:13→07:40)
[2016-10-30] MEDS: 0.9% NACL WITH KCL 20 MEQ/L 1,000 ML IV SCH ×2 (05:00→07:38)
[2016-10-30] MEDS: HYOSCYAMINE ORAL DROPS 1.875 MG/15 ML BOTTLE PO SCH ×2 (05:39→11:36)
[2016-10-30] MEDS: SIMETHICONE 40 MG/0.6 ML DROPS 2,000 MG/30 ML BOTTLE PO SCH ×2 (05:39→11:36)
[2016-10-30 06:50] VITALS: RESP 18
[2016-10-30] MEDS: LACTATED RINGERS 1,000 ML IV SCH (07:38)
[2016-10-30 07:50] LABS: Basophils % (A) 0 %; CH 32.9; CHCM 34.1; Eosinophils % (A) 0 %; HCT 39.6 % (34.0-46.0); HGB 12.8 gm/dL (11.4-16.0); Luc % (Auto) 2; Lymphocytes # (A) 1.1 k/uL (1.0-4.8); Lymphocytes % (A) 8 %; MCH 31.5 pg (25.0-35.0); MCHC 32.4 g/dL (31.0-37.0); MCV 97.2 fL (80.0-100.0); Mean Platelet Volume 8.9; Monocytes % (A) 8 %; Neutrophils # (A) 10.4 k/uL (1.3-7.7); Neutrophils % (A) 82 %; RBC 4.08 m/uL (3.80-5.40); RDW 14.6 % (11.5-15.5); WBC 12.7 k/uL (3.8-10.6); WBC (Perox) 12.63
[2016-10-30] MEDS: ALBUTEROL NEBULIZED 2.5 MG/3 ML INHALATION SCH ×3 (08:18→15:21)
[2016-10-30 08:19] LABS: Anion Gap 9 mmol/L; Blood Urea Nitrogen 7 mg/dL (7-17); Calcium 8.9 mg/dL (8.4-10.2); Carbon Dioxide 24 mmol/L (22-30); Chloride 107 mmol/L (98-107); Magnesium 1.8 mg/dL (1.6-2.3); Non-African American GFR(MDRD) >60 (>60 ml/min/1.73 sqM); Phosphorous 3.2 mg/dL (2.5-4.5); Potassium 4.5 mmol/L (3.5-5.1); Sodium 140 mmol/L (137-145)
[2016-10-30] MEDS ORDERED: ENOXAPARIN 40 MG/0.4 ML SYRINGE SQ SCH ×2 (09:00)
[2016-10-30] MEDS ORDERED: PANTOPRAZOLE 40 MG/10 ML VIAL IV SCH (09:00)
--- NOTE | 2016-10-30 09:09 | FL ---
EXAMINATION TYPE: FL UGI DATE OF EXAM: 10/30/2016 COMPARISON: NONE HISTORY: Post gastric sleeve TECHNIQUE: A single contrast UGI study is performed. FINDINGS: Milk Runner image of the abdomen shows no gross abnormality. The esophagus shows normal motility and emptying into the stomach. No evidence of hiatal hernia or s tricture noted. The stomach shows normal distensibility, peristalsis, and mucosal folds. There is a prominent pouch t he esophagus empties into likely related to portions of the gastric fundus. Delayed imaging were obta ined. Contrast is seen to pass into the small bowel. Correlate clinically. 48 seconds of fluoroscopy utilized with 12 spot images submitted. IMPRESSION: 1. No evidence of obstruction. There is a prominent pouch which should be correlated with surgery apoorva t the esophagus empties into. This should be correlated with the surgical history to confirm this is portion of the gastric fundus rather than extravasation. Correlate clinically.
[2016-10-30 11:04] VITALS: BP 133/74; TEMP 97.6
--- NOTE | 2016-10-30 14:19 | P.DS ---
Providers Date of admission: 10/29/16 08:50 Expected date of discharge: 10/30/16 Attending physician: Mandi Nunez Primary care physician: Stated None Hospital Course: 46-year-old presented to undergo a robotic-assisted laparoscopic cholecystectomy , lysis of adhesions, sleeve gastrectomy, EGD interoperative for treatment morbid obesity with gallstones. The upper GI was done on the showed no evidence of obstruction. Patient was tolerating the bariatric clear liquid. Was up ambulating in the hallway was felt to be hemodynamically stable and appropriate proceed with a discharge to home Impression discharge diagnosis Type 2 diabetes non-insulin Depressive disorder nonspecified Morbid obesity BMI 55 Osteoarthritis of the bilateral hips and knees Esophageal reflux disease Gallstones per imaging studies EGD findings consistent with erosive esophagitis including hiatal hernia Status post October 29 robotic-assisted laparoscopically cholecystectomy, lysis of adhesions, sleeve gastrectomy, interoperative EGD The above impression and plan of care have been discussed and directed by signing physician. Lorelei Thomas nurse practitioner acting as scribe for signing physician. Plan - Discharge Summary New Discharge Prescriptions: New HYDROcodone/APAP [[place] Elixir 7.5-325Mg/15Ml] 15 ml PO Q4HR PRN #300 ml PRN Reason: Pain Omeprazole 40 mg PO DAILY #90 capsule. Discontinued Multivitamins, Thera [Multivitamin (formulary)] 1 tab PO DAILY Cholecalciferol (Vitamin D3) [Vitamin D3] 10,000 unit PO DAILY Omeprazole 40 mg PO DAILY PRN PRN Reason: Heartburn Discharge Medication List HYDROcodone/APAP [[place] Elixir 7.5-325Mg/15Ml] 15 ml PO Q4HR PRN #300 ml [Rx] Omeprazole 40 mg PO DAILY #90 capsule. 10/29/16 [Rx] Follow up Appointment(s)/Referral(s): Mandi Nunez MD [STAFF PHYSICIAN] - 11/01/16 [facility],. [NON-STAFF] - 11/01/16 Patient Instructions/Handouts: Laparoscopic Cholecystectomy (DC), Nutrition after Bariatric Surgery (DC), Laparoscopic Sleeve Gastrectomy (DC) Activity/Diet/Wound Care/Special Instructions: No lifting or 4 pounds in 4 weeks. May shower. No bath tub soaks. Do not remove dressing until seen by surgeon. Discharge Disposition: HOME SELF-CARE
[2016-10-30 15:35] VITALS: PULSE 85
--- NOTE | 2016-10-30 22:59 | P.PN ---
Subjective Principal diagnosis: Morbid obesity The patient is post op day 1 status post robotic-assisted sleeve gastrectomy with cholecystectomy. Her pain is well controlled. No reports nausea. She tolerated her ice chips. No reports of diffuse esophageal spasm. She is ambulating. Objective - Vital Signs Vital signs: Vital Signs Temp 97.6 F 10/30/16 11:03 Pulse 85 10/30/16 15:35 Resp 18 10/30/16 11:03 BP 133/74 10/30/16 11:03 Pulse Ox 95 10/30/16 11:03 Intake & Output 10/30/16 10/30/16 10/31/16 06:59 18:59 06:59 Weight 145.603 kg Other: Voiding Method Toilet Toilet # Voids 1 - Exam GENERAL: Well developed and in no acute distress. Pleasant. HEENT: No sclera icterus. Extraocular movements grossly intact. Moist buccal mucosa. Head is atraumatic, normocephalic. Hears conversational speech. No nasal drainage. NECK: Supple without lymphadenopathy. CHEST: Non-labored respirations and equal bilateral excursions. CARDIOVASCULAR: Regular rate and rhythm. Palpable 2+ radial pulses. ABDOMEN: Soft, nontender. Nondistended. Surgical optifoam dressing clean dry and intact. MUSCULOSKELETAL: No clubbing, cyanosis or edema. NEUROLOGIC: No focal or lateralizing signs. PSYCH: Appropriate affect. Alert and oriented to person, place and time. SKIN: Good skin turgor. Will perfused. - Labs CBC & Chem 7: 10/30/16 07:12 10/30/16 07:12 Labs: Abnormal Lab Results - Last 24 Hours (Table) 10/30/16 Range/Units 07:12 WBC 12.7 H (3.8-10.6) k/uL Neutrophils # 10.4 H (1.3-7.7) k/uL Assessment and Plan (1) Morbid obesity due to excess calories Status: Acute (2) Adult BMI 50.0-59.9 kg/sq m Status: Acute (3) Sleep apnea Status: Acute (4) Hypertension Status: Acute (5) Gallstones Status: Acute (6) Chronic cholecystitis Status: Acute Plan: 1. She reports no difficulty with her ice chips. We'll proceed bariatric liquids. 2. Intraoperative endoscopy was negative for leaks. 3. Pending toleration of liquids in the afternoon, potential discharge home with bariatric clears. 4. Follow-up in the bariatric center within 48-72 hours.
[2016-10-31] MEDS ORDERED: BISACODYL 5 MG TABLET.DR PO PRN (08:00)
--- NOTE | 2016-11-04 23:06 | P.OP ---
Date of Procedure: 10/29/16 Description of Procedure: Date of Procedure: 10/29/16 SURGEON: GILA GORDON MD ASSISTANTS: 1. MADHAVI BECKMAN 2. AVA BACON. PREOPERATIVE DIAGNOSES: 1. Morbid obesity due to excess calories. 2. Body mass index of 56.5 to 54.8. 3. Diabetes type 2. 4. Family history of morbid obesity. 5. Sleep disturbance, obstructive sleep apnea. 6. Depression. 7. Family history of gastroesophageal reflux disease. 8. Osteoarthritis of the bilateral hips. 9. Osteoarthritis of the bilateral knees. 10. Gastroesophageal reflux disease. 11. Family history of esophageal dysmotility. 12. Dietary surveillance and counseling. 13. Hypertension. 14. Family history of gallbladder disease. 15. Vitamin D deficiency. 16. Hypercholesterolemia. 17. Gallstones. POSTOPERATIVE DIAGNOSES: 1. Morbid obesity due to excess calories. 2. Body mass index of 56.5 to 54.8. 3. Diabetes type 2. 4. Family history of morbid obesity. 5. Sleep disturbance, obstructive sleep apnea. 6. Depression. 7. Family history of gastroesophageal reflux disease. 8. Osteoarthritis of the bilateral hips. 9. Osteoarthritis of the bilateral knees. 10. Gastroesophageal reflux disease. 11. Family history of esophageal dysmotility. 12. Dietary surveillance and counseling. 13. Hypertension. 14. Family history of gallbladder disease. 15. Vitamin D deficiency. 16. Hypercholesterolemia. 17. Gallstones. 18. Peritoneal adhesions, epigastrium. OPERATION: 1. Robotic-assisted Laparoscopic cholecystectomy, multiport 2. Robotic-assisted Laparoscopic lysis of adhesions over 30 minutes 3. Robotic-assisted Laparoscopic sleeve gastrectomy, 40-Maltese bougie 4. Esophagogastroduodenoscopy, intraoperative Anesthesia: GETA, local ESTIMATED BLOOD LOSS: 10 mL Pathology: none sent (Gallbladder, sleeve gastrectomy) COMPLICATIONS: None. INDICATIONS: The patient is a very pleasant, 30-year-old female who presents with morbid obesity as her body mass index was 54.3. Pray body weight of 163 pounds for her height of 5 feet 8 inches. Her initial weight was 356 pounds. Today she comes in weighing 336 pounds. All surgical options for morbid obesity had been described using the [place] bariatric surgery collaborative comorbidity resolution including complication risk score. The patient had elected for a gastric bypass with possible sleeve gastrectomy. A second-generation bariatric consent form was described in detail including the possibility of protein malnutrition, leaks, gastrojejunal stricture, venous thrombosis, need for further surgery for which she demonstrated understanding. Benefits and risks of the procedure were described at length. Informed consent was obtained. DESCRIPTION: The patient was brought into the operating room theater. She was placed on a split leg table. Preoperatively she had received Lovenox subcutaneously for DVT prophylaxis. Additionally she had undergone Peridex oral solution as an oral decontaminant. After general induction, the abdomen was prepped and draped in standard sterile fashion. The patient had previously voided prior to coming to the operating room. Ioban draping was placed along the abdomen. A robotic da Gloria Si system was prepped and primed. At 20 cm from the xiphoid to just below the umbilicus, proposed port sites were marked with indelible marker along the anterior axillary line bilaterally, mid axillary line bilaterally with each ports were marked 10 cm from each other. The environmental emergencies assistant port was marked along the right lateral abdominal wall. The robotic stapler port was marked for the right midclavicular line. A 5 mm 0 degrees laparoscopic trocar entry was performed along the left upper quadrant. The abdomen was insufflated to 15 mmHg pressure she tolerated well. Diagnostic laparoscopy demonstrated no injury to bowel, viscera, or mesentery. The liver surface was unremarkable. No injury had occurred to the small bowel or viscera. Along the hiatus no evidence of large prominent hiatal hernia was encountered. Moderate adhesions were found along the right lower quadrant of the greater omentum to the anterior abdominal wall from previous appendectomy however undisturbed during her procedure. Bariatric field crop grower length robotic ports were selected for the entire case. Next, one 8 mm robotic port and 12-mm robot stapler port was were placed along the right mid abdomen. The camera 12-mm port extended length was maintained along the epigastrium. Two 8 mm port was placed along the left upper abdominal wall after exchanging the 5 mm port. Please note that the ports were placed at least 20 cm away from the target anatomy of the gallbladder. Care was taken to check each robotic arms were safely away from collision with the bed or the patient. At the epigastrium, a median sized Josefina liver retractor was placed under direct visualization with the Iron Heating Equipment Repairer placed over the right shoulder of the patient. The additional third robotic arm was placed along the left aspect of the patient. The patient was repositioned in reverse Trendelenburg position after lowering the bed. The robot was docked above the head of the patient. Using a grasper for arm 3, a long dissecting grasper for arm 2, including hook cautery for arm 1, the robotic system was docked and primed as described. Instruments were interchanged by the environmental emergencies assistant including hook cautery, Bovie cautery scissors and clip appliers. I had sat at the console. Adhesions were identified along the infundibulum of the gallbladder and addressed using hook cautery including blunt dissection. Extensive lysis of adhesions along the epigastrium and about the gallbladder was performed for at least 30 minutes. The gallbladder fundus was retracted over the dome of the liver. Initial attention was brought to the infundibulum which was gently retracted in the inferior lateral approach. Using forceps grasper, the cystic duct including the cystic artery was carefully skeletonized. Using a clip tankroom tender 2 clips were placed proximally, and 2 clip was placed distally along the cystic duct and then cut with scissors. Again care was taken to avoid any injury to the biliary tree as the common bile duct was clearly visualized during this portion of dissection. Next, the cystic artery was clipped twice proximally, once distally and then cauterized the cut. Electro-Bovie cautery was used to remove the gallbladder from the hepatic fossa without decompression of the gallbladder. Hemostasis was checked and found to be adequate. The gallbladder specimen was positioned along the right upper quadrant. Next, attention was brought to preparation for sleeve gastrectomy. A 40-Maltese blunt tip bougie was placed by anesthesia prior to docking the robot. Using a grasper for arm 3, a veseel sealer for arm 2, including grasper for arm 1, the instruments were interchanged by the environmental emergencies assistant for stapler loads. The pylorus was identified and 6 cm proximally along the greater curvature of the stomach, the short gastrics were mobilized upwards to the angle of His using a vessel sealer. Hemostasis was excellent during this portion of the procedure. Next, the upper pole of the stomach was adherent to the left anabell, which was gently dissected free using atraumatic grasper. A robotic stapler was exchanged for atraumatic grasper of arm 1. Using 2 green loads, initial firing was across the antrum of the stomach towards the angle of His. In a similar direction, a total of 5 blue loads were fired towards the angle of His. The staple line was completely hemostatic and linear without corkscrewing. Hemostasis was excellent. The space from the angularis incisura of the sleeve was approximately 4 cm. I then went to the head of the bed to perform the intraoperative esophagogastroduodenoscopy leak test. The patient had been leveled. The upper pole of the stomach was bathed using normal saline solution. The scope was withdrawn with careful inspection along the staple line for which no leaks were found along the entire length. Additionally, the sleeve was completely hemostatic without any encroachment along the angularis incisura. No stricture was encountered upon placement of the scope. The GI tract was desufflated. The patient tolerated this portion of the procedure well. The scope was completely withdrawn. I then rescrubbed into case, whereby the irrigation fluid was aspirated from the abdominal cavity. Tisseel fibrin sealant was placed along the entire staple length. Once dried the Josefina liver retractor was removed. Attention was now brought to removal of the specimen. The left upper quadrant incision was extended to over 5 cm to accommodate a 5 cm large gallstone. The gallbladder and distal end of the sleeve gastrectomy specimen was brought out through the left upper quadrant. The specimen was gently removed en total, corresponding to 18 cm x 8 cm sleeve gastrectomy specimen. No contamination had occurred during this process. The fascial defect was oversewn using 0 Vicryl using a Napoleon Duque device. All instruments and pneumoperitoneum including irrigation fluid was removed from the abdominal cavity. The 13 mm port site was irrigated with 2 liters of warm normal saline solution and 50 mL of hydroperoxide. 3-0 Vicryl was used to reapproximate the 13 mm port site including the 8 mm port site. The final incisions were closed using subcuticular running suture of 4-0 Monocryl. Dermabond was applied to the skin once the skin had been cleansed. OptiFoam dressing was placed along the stomach extraction site. At the end of the procedure, needle, sponge, and instrument count was verified correct by the surgical endoscopist. The patient was taken to the postanesthesia care unit in stable condition. She had tolerated the procedure well and was taken to the postanesthesia unit in stable condition. Intraoperative films and findings were reviewed with the patient's family. Console time of 1 hr and 30 min. FINDINGS: 1. Negative intraoperative esophagogastrojejunoscopy leak test. 2. No fatty liver disease or hepatomegaly. 3. Total of 9 staplers used including 2 - 45 mm green robot jarvis and 7 - 45 mm blue robot loads used to create the gastric sleeve. 4. Xiphoid to umbilicus of 35 cm. 5. Adhesions along the gallbladder with over 5 cm gallstone 6. Omental adhesions about the gallbladder infundibulum consistent with chronic cholecystitis.
== END 2016-10-30 17:30 | disposition home or self-care (01) | DRG 620 ==
LOC: 2ORWHC 08:50 → 3SUR 16:09
PROVIDERS: ADMIT Surgery Plastic and Reconstructive Surgery; ATTEND Surgery Plastic and Reconstructive Surgery
PROC: 8E0W4CZ Robotic Assisted Procedure of Trunk Region, Percutaneous Endoscopic Approach (ICD-10-PCS; 2016-10-29)
PROC: 0DJ08ZZ Inspection of Upper Intestinal Tract, Via Natural or Artificial Opening Endoscopic (ICD-10-PCS; 2016-10-29)
PROC: 0DB64Z3 Excision of Stomach, Percutaneous Endoscopic Approach, Vertical (ICD-10-PCS; principal; 2016-10-29 10:50)
PROC: 0FT44ZZ Resection of Gallbladder, Percutaneous Endoscopic Approach (ICD-10-PCS; 2016-10-29 10:50)
DX: E66.01 Morbid (severe) obesity due to excess calories (principal); K22.10 Ulcer of esophagus without bleeding; K80.10 Calculus of gallbladder with chronic cholecystitis without obstruction; I10 Essential (primary) hypertension; E55.9 Vitamin D deficiency, unspecified; E11.9 Type 2 diabetes mellitus without complications; E78.00 Pure hypercholesterolemia, unspecified; F32.9 Major depressive disorder, single episode, unspecified; G47.33 Obstructive sleep apnea (adult) (pediatric); K44.9 Diaphragmatic hernia without obstruction or gangrene; K21.0 Gastro-esophageal reflux disease with esophagitis; K82.8 Other specified diseases of gallbladder; M17.0 Bilateral primary osteoarthritis of knee; M16.0 Bilateral primary osteoarthritis of hip; Z68.43 Body mass index [BMI] 50.0-59.9, adult; Z87.891 Personal history of nicotine dependence; Z82.49 Family history of ischemic heart disease and other diseases of the circulatory system
CPT/HCPCS: 74240; 80051; 81025; 82310; 82565; 83735; 84100; 84520; 85025; 86850; 86900; 86901; 88304; 88307; 94640

== ENCOUNTER → 2016-11-01 | Outpatient (CLI) | payer OTHER ==
[2016-11-01 10:17] VITALS: BP 136/83; PULSE 76; TEMP 97.5; BMI 54.1
[2016-11-01] MEDS: SODIUM CHLORIDE 0.9% 1,000 ML IV SCH ×2 (11:10→12:20)
[2016-11-01 11:13] VITALS: RESP 16
--- NOTE | 2016-11-18 14:04 | P.PN ---
Progress Note - Text DATE OF SERVICE: 11/01/2016 CHIEF COMPLAINT: Follow sleeve gastrectomy. HISTORY OF PRESENT ILLNESS: The patient is a 46-year-old female who presents with a long-standing history of morbid obesity. She is status post robotic- assisted laparoscopic sleeve gastrectomy on 10/29/2016. She is postop day #3. Additionally, she had a cholecystectomy done at that time. No reports of nausea and vomiting. Now she complains of reflux. She initially had discomfort along the left shoulder which is now resolved. She reports drinking too quickly and gets occasional gas bubble. She is not taking her omeprazole despite discharge instructions. At her height of 5 foot 4.25, her ideal body weight is 144 pounds. Her highest weight was 331 pounds. She has lost 4 pounds in 1 month. Total weight loss is 13 pounds lifetime. She is 174 pounds overweight. Her body mass index is reduced from 56.5 down to 54.2. PHYSICAL EXAM: VITAL SIGNS: Height 5 foot 4.25 inches, weight 318 pounds. BMI 54.2. Vital Signs Temp 97.5 F L 11/01/16 11:11 Pulse 76 11/01/16 11:11 Resp 16 11/01/16 11:11 BP 136/83 11/01/16 11:11 Pulse Ox GENERAL: Well-developed female in no acute distress. HEENT: No scleral icterus. Extraocular was grossly intact. No nasal drainage. NECK: Supple without lymphadenopathy. CHEST: Nonlabored respirations with equal bilateral excursions. CARDIOVASCULAR: Regular rate. Distal 2+ pulses. ABDOMEN: Obese, soft, nontender, nondistended. Dressing discontinued from the abdomen. No signs of infection or cellulitis. MUSCULOSKELETAL: No clubbing, cyanosis, or edema. Gross strength 5/5 distal lower extremities. NEURO: No focal or lateralizing signs. Cranial nerves 2 through 12 grossly within normal limits. PSYCH: Appropriate affect. Alert and oriented to person, place and time. SKIN: Well perfused. Good skin turgor. ASSESSMENT: 1. Morbid obesity due to excess calories. 2. Body mass index of 56.5 to 54.2. 3. Diabetes type 2. 4. Family history of morbid obesity. 5. Sleep disturbance, obstructive sleep apnea. 6. Depression. 7. Family history of gastroesophageal reflux disease. 8. Osteoarthritis of the bilateral hips. 9. Osteoarthritis of the bilateral knees. 10. Gastroesophageal reflux disease. 11. Family history of esophageal dysmotility. 12. Dietary surveillance and counseling. 13. Hypertension. 14. Family history of gallbladder disease. 15. Vitamin D deficiency. 16. Hypercholesterolemia. 17. Cholecystectomy for gallstones. 18. Status post sleeve gastrectomy. PLAN: 1. She may start her protein shakes. At least 75 g daily advised. 2. She was encouraged to drink fluids 64 ounces daily. 3. Omeprazole was reinforced for pouch care including de barbra gastroesophageal reflux disease. 4. Follow-up in the [facility] 1 week.
== END | disposition home or self-care (01) ==
LOC: BARWHC3 09:09
PROVIDERS: ATTEND Surgery Plastic and Reconstructive Surgery
DX: Z09 Encounter for follow-up examination after completed treatment for conditions other than malignant neoplasm (principal); E66.01 Morbid (severe) obesity due to excess calories; Z68.43 Body mass index [BMI] 50.0-59.9, adult; E11.9 Type 2 diabetes mellitus without complications; G47.33 Obstructive sleep apnea (adult) (pediatric); F32.9 Major depressive disorder, single episode, unspecified; Z83.79 Family history of other diseases of the digestive system; Z83.49 Family history of other endocrine, nutritional and metabolic diseases; M16.0 Bilateral primary osteoarthritis of hip; M17.0 Bilateral primary osteoarthritis of knee; K21.9 Gastro-esophageal reflux disease without esophagitis; I10 Essential (primary) hypertension; E55.9 Vitamin D deficiency, unspecified; Z71.3 Dietary counseling and surveillance; Z90.49 Acquired absence of other specified parts of digestive tract; Z98.84 Bariatric surgery status
CPT/HCPCS: 97803; 96360; 96361; G0463; 99211

== ENCOUNTER → 2016-11-08 | Outpatient (CLI) | payer OTHER ==
[2016-11-08 14:29] VITALS: BMI 52.6
[2016-11-09 08:49] VITALS: BP 135/91; PULSE 80; TEMP 98
--- NOTE | 2016-11-18 20:54 | P.PN ---
Subjective DATE OF SERVICE: 11/08/2016 CHIEF COMPLAINT: Follow sleeve gastrectomy. HISTORY OF PRESENT ILLNESS: The patient is a 46-year-old female who presents with a long-standing history of morbid obesity. She is status post robotic- assisted laparoscopic sleeve gastrectomy on 10/29/2016. She reports no heartburn. She is doing much better than last week. She had a history of dysphagia. She has not been taking her omeprazole. She reports rash along her breast. At her height of 5 foot 4.25, her ideal body weight is 144 pounds. Her highest weight was 331 pounds. She has lost 9 pounds in 1 week. Total weight loss is 23 pounds lifetime. Her body mass index is reduced from 56.5 down to 52.6. PHYSICAL EXAM: VITAL SIGNS: Height 5 foot 4.25 inches, weight 308 pounds. BMI 52.6 Vital Signs Temp 98.0 F 11/08/16 10:00 Pulse 80 11/08/16 10:00 Resp BP 135/91 11/08/16 10:00 Pulse Ox GENERAL: Well-developed female in no acute distress. HEENT: No scleral icterus. Extraocular was grossly intact. No nasal drainage. NECK: Supple without lymphadenopathy. CHEST: Nonlabored respirations with equal bilateral excursions. CARDIOVASCULAR: Regular rate. Distal 2+ pulses. ABDOMEN: Obese, soft, nontender, nondistended. No signs of infection or cellulitis. MUSCULOSKELETAL: No clubbing, cyanosis, or edema. Gross strength 5/5 distal lower extremities. NEURO: No focal or lateralizing signs. Cranial nerves 2 through 12 grossly within normal limits. PSYCH: Appropriate affect. Alert and oriented to person, place and time. SKIN: Well perfused. Good skin turgor. Has rash underneath the skin and pannus. ASSESSMENT: 1. Morbid obesity due to excess calories. 2. Body mass index of 56.5 to 52. 6. 3. Diabetes type 2, improved. 4. Family history of morbid obesity. 5. Sleep disturbance, obstructive sleep apnea. 6. Depression. 7. Family history of gastroesophageal reflux disease. 8. Osteoarthritis of the bilateral hips. 9. Osteoarthritis of the bilateral knees. 10. Gastroesophageal reflux disease. 11. Family history of esophageal dysmotility. 12. Dietary surveillance and counseling. 13. Hypertension. 14. Family history of gallbladder disease. 15. Vitamin D deficiency. 16. Hypercholesterolemia. 17. Cholecystectomy for gallstones. 18. Status post sleeve gastrectomy. 19. Panniculitis. PLAN: 1. Recommend continue omeprazole. 2. Nystatin for panniculitis. 3. Recommend upper endoscopy for dysphagia.
== END | disposition home or self-care (01) ==
LOC: BARWHC3 09:45
PROVIDERS: ATTEND Surgery Plastic and Reconstructive Surgery
DX: Z48.815 Encounter for surgical aftercare following surgery on the digestive system (principal); E66.01 Morbid (severe) obesity due to excess calories; E11.9 Type 2 diabetes mellitus without complications; G47.33 Obstructive sleep apnea (adult) (pediatric); F32.9 Major depressive disorder, single episode, unspecified; K21.9 Gastro-esophageal reflux disease without esophagitis; M16.0 Bilateral primary osteoarthritis of hip; M17.0 Bilateral primary osteoarthritis of knee; I10 Essential (primary) hypertension; E78.00 Pure hypercholesterolemia, unspecified; M79.3 Panniculitis, unspecified; Z98.890 Other specified postprocedural states; Z68.43 Body mass index [BMI] 50.0-59.9, adult; Z98.84 Bariatric surgery status
CPT/HCPCS: 97802; G0463; 99211

== ENCOUNTER → 2017-01-02 | Outpatient (CLI) | payer OTHER ==
[2017-01-02 15:23] VITALS: TEMP 97.9; BMI 48.4
[2017-01-02 15:35] VITALS: BP 136/86; PULSE 76
--- NOTE | 2017-03-03 12:02 | P.PN ---
Subjective Progress Note Date: 01/02/17 DATE OF SERVICE: 01/02/2017 CHIEF COMPLAINT: Follow sleeve gastrectomy. HISTORY OF PRESENT ILLNESS: The patient is a 46-year-old female who presents with a long-standing history of morbid obesity. She is status post robotic- assisted laparoscopic sleeve gastrectomy on 10/29/2016. She reports occasional reflux disease. Otherwise no reports of dysphagia. At her height of 5 foot 4.25 , her ideal body weight is 144 pounds. Her highest weight was 331 pounds. She has lost 23 pounds in 2 months. Total weight loss is 45 pounds lifetime. Her body mass index is reduced from 56.5 down to 48.8. She reports over 3 years since she was under 300 pounds. PHYSICAL EXAM: VITAL SIGNS: Height 5 foot 4.25 inches, weight 286 pounds. BMI 48.4 Vital Signs Temp 97.9 F 01/02/17 15:22 Pulse 76 01/02/17 15:22 Resp BP 136/86 01/02/17 15:22 Pulse Ox GENERAL: Well-developed female in no acute distress. HEENT: No scleral icterus. Extraocular was grossly intact. No nasal drainage. NECK: Supple without lymphadenopathy. CHEST: Nonlabored respirations with equal bilateral excursions. CARDIOVASCULAR: Regular rate. Distal 2+ pulses. ABDOMEN: Obese, soft, nontender, nondistended. All incisions granulated. MUSCULOSKELETAL: No clubbing, cyanosis, or edema. Gross strength 5/5 distal lower extremities. NEURO: No focal or lateralizing signs. Cranial nerves 2 through 12 grossly within normal limits. PSYCH: Appropriate affect. Alert and oriented to person, place and time. SKIN: Well perfused. Good skin turgor. Has rash underneath the skin and pannus. ASSESSMENT: 1. Morbid obesity due to excess calories. 2. Body mass index of 56.5 to 48.8. 3. Diabetes type 2, improved. 4. Family history of morbid obesity. 5. Sleep disturbance, obstructive sleep apnea. 6. Depression. 7. Family history of gastroesophageal reflux disease. 8. Osteoarthritis of the bilateral hips. 9. Osteoarthritis of the bilateral knees. 10. Gastroesophageal reflux disease. 11. Family history of esophageal dysmotility. 12. Dietary surveillance and counseling. 13. Hypertension. 14. Family history of gallbladder disease. 15. Vitamin D deficiency. 16. Hypercholesterolemia. 17. Cholecystectomy for gallstones. 18. Status post sleeve gastrectomy. 19. Panniculitis. PLAN: 1. Recommend bariatric metabolic panel. 2. Continue omeprazole 3 months postprocedure. 3. Follow-up next month. Objective - Vital Signs Vital signs: Vital Signs Temp 97.9 F 01/02/17 15:22 Pulse 76 01/02/17 15:22 Resp BP 136/86 01/02/17 15:22 Pulse Ox Intake & Output 01/01/17 01/02/17 01/02/17 18:59 06:59 18:59 Weight 129.909 kg
== END | disposition home or self-care (01) ==
LOC: BARWHC3 14:12
PROVIDERS: ATTEND Surgery Plastic and Reconstructive Surgery
DX: Z48.815 Encounter for surgical aftercare following surgery on the digestive system (principal); K21.9 Gastro-esophageal reflux disease without esophagitis; E66.01 Morbid (severe) obesity due to excess calories; E11.9 Type 2 diabetes mellitus without complications; M16.0 Bilateral primary osteoarthritis of hip; G47.33 Obstructive sleep apnea (adult) (pediatric); M79.3 Panniculitis, unspecified; K80.20 Calculus of gallbladder without cholecystitis without obstruction; E55.9 Vitamin D deficiency, unspecified; E78.00 Pure hypercholesterolemia, unspecified; I10 Essential (primary) hypertension; F32.9 Major depressive disorder, single episode, unspecified; M17.0 Bilateral primary osteoarthritis of knee; Z83.49 Family history of other endocrine, nutritional and metabolic diseases; Z83.79 Family history of other diseases of the digestive system; Z90.49 Acquired absence of other specified parts of digestive tract; Z98.84 Bariatric surgery status; Z71.3 Dietary counseling and surveillance; Z68.42 Body mass index [BMI] 45.0-49.9, adult
CPT/HCPCS: 97803; G0463; 99211

== ENCOUNTER 2017-01-03 11:57 | Emergency (ER) | payer OTHER ==
[2017-01-03 12:05] VITALS: TEMP 97.5
[2017-01-03] MEDS ORDERED: SODIUM CHLORIDE 0.9% 500 ML IV STA (12:32)
[2017-01-03] MEDS ORDERED: ACTIVATED CHARCOAL 50 GM/240 ML BOTTLE NG-TUBE STA (12:32)
--- NOTE | 2017-01-03 12:40 | ED ---
General Adult HPI - General Chief complaint: Overdose Stated complaint: POSS OVERDOSE Time Seen by Provider: 01/03/17 12:00 Source: patient, RN notes reviewed Mode of arrival: ambulatory Limitations: no limitations - History of Present Illness Initial comments: This is a 46-year-old female presents emergency department because she took 6 of her buspirone which are 10 mg apiece and she status post take one. Patient states she was having some suicidal thoughts but after she took them and started to become dizzy she decided she wanted some help so she came to the emergency department. Patient denies any chest pain difficult breathing shortness of breath per patient denies any headache patient denies numbness weakness. Patient states she has had suicidal ideations in the past and has attempted once in the past many years ago. Patient denies any abdominal pain patient denies nausea vomiting diarrhea. Patient denies any recent fever chills or cough. - Related Data Home Medications Medication Instructions Recorded Confirmed Multivitamins, Thera [Multivitamin 1 tab PO HS 01/02/17 01/03/17 (formulary)] Omeprazole 40 mg PO HS 01/03/17 01/03/17 Allergies Allergy/AdvReac Type Severity Reaction Status Date / Time No Known Allergies Allergy Verified 01/03/17 13:52 Review of Systems ROS Statement: Those systems with pertinent positive or pertinent negative responses have been documented in the HPI. ROS Other: All systems not noted in ROS Statement are negative. Past Medical History Past Medical History: No Reported History Additional Past Medical History / Comment(s): hiatal hernia, joint pain History of Any Multi-Drug Resistant Organisms: None Reported Past Surgical History: Bariatric Surgery, Cholecystectomy, Orthopedic Surgery, Tubal Ligation Additional Past Surgical History / Comment(s): EGD, right thumb surg.sleeve gastrectp,y 10-29-16 Past Anesthesia/Blood Transfusion Reactions: No Reported Reaction Past Psychological History: Depression Smoking Status: Never smoker Past Alcohol Use History: None Reported Past Drug Use History: None Reported - Past Family History Father Family Medical History: Cancer, Congestive Heart Failure (CHF), COPD, Diabetes Mellitus Mother Family Medical History: Diabetes Mellitus General Exam - General Exam Comments Initial Comments: GENERAL: Patient is well-developed and well-nourished. Patient is nontoxic and well- hydrated and is in no acute distress. ENT: Neck is soft and supple. No significant lymphadenopathy is noted. Oropharynx is clear. Moist mucous membranes. Neck has full range of motion without eliciting any pain. EYES: The sclera were anicteric and conjunctiva were pink and moist. Extraocular movements were intact and pupils were equal round and reactive to light. Eyelids were unremarkable. PULMONARY: Unlabored respirations. Good breath sounds bilaterally. No audible rales rhonchi or wheezing was noted. CARDIOVASCULAR: There is a regular rate and rhythm without any murmurs gallops or rubs. ABDOMEN: Soft and nontender with normal bowel sounds. No palpable organomegaly was noted. There is no palpable pulsatile mass. SKIN: Skin is clear with no lesions or rashes and otherwise unremarkable. NEUROLOGIC: Patient is alert and oriented x3. Cranial nerves II through XII are grossly intact. Motor and sensory are also intact. Normal speech, volume and content. Symmetrical smile. MUSCULOSKELETAL: Normal extremities with adequate strength and full range of motion. LYMPHATICS: No significant lymphadenopathy is noted PSYCHIATRIC: Patient states she's been depressed and feels as though she's on the edge of being suicidal. Limitations: no limitations Course Vital Signs 01/03/17 01/03/17 12:00 13:30 Temperature 97.5 F L Pulse Rate 75 88 Respiratory 18 16 Rate Blood Pressure 129/81 123/60 O2 Sat by Pulse 97 97 Oximetry Medical Decision Making - Medical Decision Making EKG shows normal sinus rhythm at 73 bpm AR interval 142 QRS is 106 QT intervals 420 QTC is 462. Patient's EKG shows no ST segment elevation or depression or T wave abnormalities are noted EPS came down and evaluated patient and determined the patient could go home and follow-up per their instructions - Lab Data Result diagrams: 01/03/17 13:00 01/03/17 13:00 Lab Results 01/03/17 01/03/17 01/03/17 Range/Units 13:00 13:00 13:00 WBC 6.5 (3.8-10.6) k/uL RBC 4.17 (3.80-5.40) m/uL Hgb 13.5 (11.4-16.0) gm/dL Hct 41.3 (34.0-46.0) % MCV 99.1 (80.0-100.0) fL MCH 32.5 (25.0-35.0) pg MCHC 32.8 (31.0-37.0) g/dL RDW 15.8 H (11.5-15.5) % Plt Count 208 (150-450) k/uL Neutrophils % 73 % Lymphocytes % 15 % Monocytes % 8 % Eosinophils % 2 % Basophils % 1 % Neutrophils # 4.8 (1.3-7.7) k/uL Lymphocytes # 1.0 (1.0-4.8) k/uL Monocytes # 0.5 (0-1.0) k/uL Eosinophils # 0.1 (0-0.7) k/uL Basophils # 0.0 (0-0.2) k/uL Macrocytosis Slight Sodium 141 (137-145) mmol/L Potassium 3.8 (3.5-5.1) mmol/L Chloride 107 (98-107) mmol/L Carbon Dioxide 23 (22-30) mmol/L Anion Gap 11 mmol/L BUN 10 (7-17) mg/dL Creatinine 0.73 (0.52-1.04) mg/dL Est GFR (MDRD) Af Amer >60 (>60 ml/min/1.73 sqM) Est GFR (MDRD) Non-Af >60 (>60 ml/min/1.73 sqM) Glucose 105 H (74-99) mg/dL Calcium 9.6 (8.4-10.2) mg/dL Total Bilirubin 0.7 (0.2-1.3) mg/dL AST 31 (14-36) U/L ALT 34 (9-52) U/L Alkaline Phosphatase 48 (38-126) U/L Total Protein 7.2 (6.3-8.2) g/dL Albumin 3.9 (3.5-5.0) g/dL Urine HCG, Qual (Not Detectd) Salicylates <1.0 mg/dL Urine Opiates Screen (NotDetected) Ur Oxycodone Screen (NotDetected) Urine Methadone Screen (NotDetected) Ur Propoxyphene Screen (NotDetected) Acetaminophen <10.0 ug/mL Ur Barbiturates Screen (NotDetected) U Tricyclic Antidepress (NotDetected) Ur Phencyclidine Scrn (NotDetected) Ur Amphetamines Screen (NotDetected) U Methamphetamines Scrn (NotDetected) U Benzodiazepines Scrn (NotDetected) Urine Cocaine Screen (NotDetected) U Marijuana (THC) Screen (NotDetected) Serum Alcohol <10 mg/dL 01/03/17 01/03/17 Range/Units 14:01 14:01 WBC (3.8-10.6) k/uL RBC (3.80-5.40) m/uL Hgb (11.4-16.0) gm/dL Hct (34.0-46.0) % MCV (80.0-100.0) fL MCH (25.0-35.0) pg MCHC (31.0-37.0) g/dL RDW (11.5-15.5) % Plt Count (150-450) k/uL Neutrophils % % Lymphocytes % % Monocytes % % Eosinophils % % Basophils % % Neutrophils # (1.3-7.7) k/uL Lymphocytes # (1.0-4.8) k/uL Monocytes # (0-1.0) k/uL Eosinophils # (0-0.7) k/uL Basophils # (0-0.2) k/uL Macrocytosis Sodium (137-145) mmol/L Potassium (3.5-5.1) mmol/L Chloride (98-107) mmol/L Carbon Dioxide (22-30) mmol/L Anion Gap mmol/L BUN (7-17) mg/dL Creatinine (0.52-1.04) mg/dL Est GFR (MDRD) Af Amer (>60 ml/min/1.73 sqM) Est GFR (MDRD) Non-Af (>60 ml/min/1.73 sqM) Glucose (74-99) mg/dL Calcium (8.4-10.2) mg/dL Total Bilirubin (0.2-1.3) mg/dL AST (14-36) U/L ALT (9-52) U/L Alkaline Phosphatase (38-126) U/L Total Protein (6.3-8.2) g/dL Albumin (3.5-5.0) g/dL Urine HCG, Qual Not Detected (Not Detectd) Salicylates mg/dL Urine Opiates Screen Not Detected (NotDetected) Ur Oxycodone Screen Not Detected (NotDetected) Urine Methadone Screen Not Detected (NotDetected) Ur Propoxyphene Screen Not Detected (NotDetected) Acetaminophen ug/mL Ur Barbiturates Screen Not Detected (NotDetected) U Tricyclic Antidepress Not Detected (NotDetected) Ur Phencyclidine Scrn Not Detected (NotDetected) Ur Amphetamines Screen Not Detected (NotDetected) U Methamphetamines Scrn Not Detected (NotDetected) U Benzodiazepines Scrn Not Detected (NotDetected) Urine Cocaine Screen Not Detected (NotDetected) U Marijuana (THC) Screen Not Detected (NotDetected) Serum Alcohol mg/dL Disposition Clinical Impression: Depression, Overdose Disposition: HOME SELF-CARE Condition: Good Instructions: Depression (ED) Referrals: Tarsha Cage MD [Primary Care Provider] - 1-2 days Time of Disposition: 16:17
[2017-01-03 13:20] LABS: Basophils % (A) 1 %; CH 32.3; CHCM 32.9; Eosinophils # (A) 0.1 k/uL (0-0.7); Eosinophils % (A) 2 %; HCT 41.3 % (34.0-46.0); HDW 3.05; HGB 13.5 gm/dL (11.4-16.0); Luc # (Auto) 0.11; Luc % (Auto) 2; Lymphocytes % (A) 15 %; MCH 32.5 pg (25.0-35.0); MCHC 32.8 g/dL (31.0-37.0); MCV 99.1 fL (80.0-100.0); Macrocytosis Slight; Mean Platelet Volume 9.7; Monocytes # (A) 0.5 k/uL (0-1.0); Monocytes % (A) 8 %; Neutrophils # (A) 4.8 k/uL (1.3-7.7); Neutrophils % (A) 73 %; RBC 4.17 m/uL (3.80-5.40); RDW 15.8 % (11.5-15.5); WBC 6.5 k/uL (3.8-10.6); WBC (Perox) 6.54
[2017-01-03 13:35] LABS: Acetaminophen <10.0 ug/mL; Alcohol <10 mg/dL; Salicylate <1.0 mg/dL
[2017-01-03 14:13] LABS: Anion Gap 11 mmol/L; Calcium 9.6 mg/dL (8.4-10.2); Carbon Dioxide 23 mmol/L (22-30); Chloride 107 mmol/L (98-107); Glucose 105 mg/dL (74-99); Non-African American GFR(MDRD) >60 (>60 ml/min/1.73 sqM); Sodium 141 mmol/L (137-145); Total Bilirubin 0.7 mg/dL (0.2-1.3); Total Protein 7.2 g/dL (6.3-8.2)
[2017-01-03 14:14] LABS: ALT 34 U/L (9-52); AST 31 U/L (14-36); Alkaline Phosphatase 48 U/L (38-126); Blood Urea Nitrogen 10 mg/dL (7-17); Potassium 3.8 mmol/L (3.5-5.1)
[2017-01-03 15:52] VITALS: PULSE 88
[2017-01-03 16:53] VITALS: BP 136/78; RESP 18
== END 2017-01-03 16:53 | disposition home or self-care (01) ==
LOC: EC 11:57
DX: T43.591A Poisoning by other antipsychotics and neuroleptics, accidental (unintentional), initial encounter (principal); F32.9 Major depressive disorder, single episode, unspecified; Z79.899 Other long term (current) drug therapy
CPT/HCPCS: 36415; 80053; 80061; 80306; 80320; 81025; 82075; 82306; 82525; 82607; 82728; 82746; 83036; 83520; 83540; 83550; 83735; 83970; 84100; 84134; 84255; 84425; 84443; 84590; 84630; 85025; 85027; 85610; 85730; 93005; 96360; 99284

== ENCOUNTER → 2017-01-03 | Outpatient (CLI) | payer OTHER ==
[2017-01-03 09:13] LABS: CH 32.8; CHCM 33.1; HCT 40.9 % (34.0-46.0); HGB 13.3 gm/dL (11.4-16.0); MCH 32.5 pg (25.0-35.0); MCHC 32.6 g/dL (31.0-37.0); Macrocytosis Slight; Mean Platelet Volume 8.9; RBC 4.09 m/uL (3.80-5.40); RDW 14.6 % (11.5-15.5); WBC 4.9 k/uL (3.8-10.6)
[2017-01-03 09:24] LABS: INR 1.2 (<1.2); Partial Thromboplastin Time 24.9 sec (22.0-30.0); Prothrombin Time 11.7 sec (9.0-12.0)
[2017-01-03 09:37] LABS: ALT 40 U/L (9-52); AST 22 U/L (14-36); Alkaline Phosphatase 48 U/L (38-126); Anion Gap 7 mmol/L; Blood Urea Nitrogen 10 mg/dL (7-17); Calcium 9.6 mg/dL (8.4-10.2); Carbon Dioxide 27 mmol/L (22-30); Chloride 108 mmol/L (98-107); Cholesterol 161 mg/dL (<200); Glucose 111 mg/dL (74-99); HDL Cholesterol 49 mg/dL (40-60); Magnesium 1.6 mg/dL (1.6-2.3); Non-African American GFR(MDRD) >60 (>60 ml/min/1.73 sqM); Phosphorus 2.8 mg/dL (2.5-4.5); Potassium 3.8 mmol/L (3.5-5.1); Sodium 142 mmol/L (137-145); Total Bilirubin 0.7 mg/dL (0.2-1.3); Total Protein 6.7 g/dL (6.3-8.2)
[2017-01-03 15:57] LABS: Iron Saturation 18.13 (12.00-45.00); Iron(FE) 60 ug/dL (50-170); Total Iron Binding Capacity 331 ug/dL (228-460)
[2017-01-09 19:59] LABS: Selenium 128 mcg/L (63-160)
== END | disposition home or self-care (01) ==
LOC: LABWHC1 08:50
PROVIDERS: ATTEND Surgery Plastic and Reconstructive Surgery
DX: K50.90 Crohn's disease, unspecified, without complications (principal); E21.1 Secondary hyperparathyroidism, not elsewhere classified; D50.8 Other iron deficiency anemias; E44.0 Moderate protein-calorie malnutrition; E55.9 Vitamin D deficiency, unspecified; K74.1 Hepatic sclerosis; N19 Unspecified kidney failure; E66.01 Morbid (severe) obesity due to excess calories
CPT/HCPCS: 36415; 80053; 80061; 82306; 82525; 82607; 82728; 82746; 83036; 83540; 83550; 83735; 83970; 84100; 84134; 84255; 84425; 84443; 84590; 84630; 85027; 85610; 85730

== ENCOUNTER → 2017-02-27 | Outpatient (CLI) | payer OTHER ==
[2017-02-27 16:21] VITALS: BP 140/84; PULSE 62; RESP 15; TEMP 97.7; BMI 44.3
[2017-02-27 18:11] LABS: HCT 42.3 % (34.0-46.0); HGB 13.8 gm/dL (11.4-16.0); MCH 31.8 pg (25.0-35.0); MCHC 32.7 g/dL (31.0-37.0); MCV 97.3 fL (80.0-100.0); Mean Platelet Volume 9.6; Platelet Count 228 k/uL (150-450); RBC 4.35 m/uL (3.80-5.40); WBC 7.1 k/uL (3.8-10.6)
[2017-02-27 18:14] LABS: ALT 57 U/L (9-52); AST 32 U/L (14-36); Albumin 4.3 g/dL (3.5-5.0); Alkaline Phosphatase 55 U/L (38-126); Anion Gap 10 mmol/L; Blood Urea Nitrogen 17 mg/dL (7-17); Calcium 10.2 mg/dL (8.4-10.2); Carbon Dioxide 28 mmol/L (22-30); Chloride 103 mmol/L (98-107); Cholesterol 163 mg/dL (<200); Glucose 91 mg/dL (74-99); HDL Cholesterol 61 mg/dL (40-60); LDL Cholesterol,Calculated 90 mg/dL (0-99); Phosphorus 3.6 mg/dL (2.5-4.5); Potassium 3.8 mmol/L (3.5-5.1); Sodium 141 mmol/L (137-145); Total Bilirubin 0.5 mg/dL (0.2-1.3); Total Protein 7.3 g/dL (6.3-8.2); Triglycerides 62 mg/dL (<150)
[2017-02-27 18:15] LABS: INR 1.1 (<1.2); Partial Thromboplastin Time 24.1 sec (22.0-30.0); Prothrombin Time 10.8 sec (9.0-12.0)
[2017-02-28 01:46] LABS: Iron Saturation 12.67 (12.00-45.00)
[2017-02-28 01:54] LABS: Parathyroid Hormone Intact 32.8 pg/mL (14.0-72.0)
[2017-02-28 01:57] LABS: Folate, Serum 19.2 ng/mL
[2017-02-28 04:49] LABS: Hemoglobin A1C 5.2 % (4.0-6.0)
[2017-03-04 05:28] LABS: Vitamin B1 32 ug/L (38-122)
[2017-03-04 05:40] LABS: Vitamin A 28 ug/dL (38-106)
--- NOTE | 2017-04-20 16:41 | P.PN ---
Subjective Progress Note Date: 02/27/17 DATE OF SERVICE: 02/27/2017 CHIEF COMPLAINT: Follow sleeve gastrectomy. HISTORY OF PRESENT ILLNESS: The patient is a 46-year-old female who presents with a long-standing history of morbid obesity. She is status post robotic- assisted laparoscopic sleeve gastrectomy on 10/29/2016. She reports gastroesophageal reflux disease. She reports occasional epigastric abdominal pain. She has constipation. At her height of 5 foot 4.25, her ideal body weight is 144 pounds. Her highest weight was 331 pounds. She has lost 26 pounds since her last visit 2 months ago. Total weight loss is 71 pounds lifetime. Her body mass index is reduced from 56.5 down to 44.3. PAST MEDICAL HISTORY: 1. Diabetes type 2. 2. Depression. 3. Morbid obesity. 4. Osteoarthritis of the bilateral hips. 5. Osteoarthritis of the bilateral knees. 6. Gallstones 7. Gastroesophageal reflux disease. 8. Body mass index, 56.5. PAST SURGICAL HISTORY: 1. Upper endoscopy. 2. Tubal ligation. HOME MEDICATIONS: 1. Prozac. 2. Metformin. 3. Omeprazole. ALLERGIES: None. SOCIAL HISTORY: No active tobacco use. She is a past tobacco user. FAMILY HISTORY: Denies any DVTs, pulmonary embolisms in her family. Denies any ulcerative colitis disease or Crohn's. She does have a family history of morbid obesity. He strong family history of esophageal dysmotility including gastroesophageal reflux disease. Also has a family history of gallbladder disorder. REVIEW OF ORGAN SYSTEMS: CONSTITUTIONAL: Height of 5 foot 4.25, her ideal body weight is 144 pounds. Initial body mass index 56.5. Weight loss of 71 pounds. Percent excess weight loss 45% HEENT: Denies any active troubles with vision or hearing. ENDOCRINE: No reports of hypothyroidism. Has insulin resistance with diabetes, now resolved. CARDIOVASCULAR: No reports of palpitations or heart attacks or chest pain. RESPIRATORY: Has daytime somnolence including snoring, suspicious for sleep apnea. No recent asthma. GI: Denies any bright red blood per rectum, diarrhea or constipation. Has intermittent heartburn. MUSCULOSKELETAL: Describes generalized muscle aches, including lower back pain or joint pain. NEURO: No reports of headaches or seizure disorders. PSYCH: Has depression without suicidal ideation. HEMATOLOGIC: Denies any abnormal bleeding or bruising. SKIN: Has panniculitis. No skin cancer. PHYSICAL EXAM: VITAL SIGNS: Height 5 foot 4.25 inches, weight 260 pounds. BMI 44.3 Vital Signs Temp 97.7 F 02/27/17 16:09 Pulse 62 02/27/17 16:09 Resp 15 02/27/17 16:09 BP 140/84 02/27/17 16:09 Pulse Ox GENERAL: Well-developed female in no acute distress. HEENT: No scleral icterus. Extraocular was grossly intact. No nasal drainage. NECK: Supple without lymphadenopathy. CHEST: Nonlabored respirations with equal bilateral excursions. CARDIOVASCULAR: Regular rate. Distal 2+ pulses. ABDOMEN: Obese, soft, nontender, nondistended. MUSCULOSKELETAL: No clubbing, cyanosis, or edema. Gross strength 5/5 distal lower extremities. NEURO: No focal or lateralizing signs. Cranial nerves 2 through 12 grossly within normal limits. PSYCH: Appropriate affect. Alert and oriented to person, place and time. SKIN: Well perfused. Good skin turgor. ASSESSMENT: 1. Morbid obesity due to excess calories. 2. Body mass index of 56.5 to 44.3 3. Diabetes type 2, improved. 4. Family history of morbid obesity. 5. Sleep disturbance, obstructive sleep apnea. 6. Depression. 7. Family history of gastroesophageal reflux disease. 8. Osteoarthritis of the bilateral hips. 9. Osteoarthritis of the bilateral knees. 10. Gastroesophageal reflux disease. 11. Family history of esophageal dysmotility. 12. Dietary surveillance and counseling. 13. Hypertension. 14. Family history of gallbladder disease. 15. Vitamin D deficiency. 16. Hypercholesterolemia. 17. Cholecystectomy for gallstones. 18. Status post sleeve gastrectomy. 19. Panniculitis. PLAN: 1. Recommend bariatric lab panel. 2. She has gastroesophageal reflux disease however high suspicion of gastrojejunal stricture. 3. May need upper endoscopy with balloon dilation. Laboratory Last Values WBC 7.1 k/uL (3.8-10.6) 02/27/17 17:24 RBC 4.35 m/uL (3.80-5.40) 02/27/17 17:24 Hgb 13.8 gm/dL (11.4-16.0) 02/27/17 17:24 Hct 42.3 % (34.0-46.0) 02/27/17 17:24 MCV 97.3 fL (80.0-100.0) 02/27/17 17:24 MCH 31.8 pg (25.0-35.0) 02/27/17 17:24 MCHC 32.7 g/dL (31.0-37.0) 02/27/17 17:24 RDW 14.0 % (11.5-15.5) 02/27/17 17:24 Plt Count 228 k/uL (150-450) 02/27/17 17:24 PT 10.8 sec (9.0-12.0) 02/27/17 17:24 INR 1.1 (<1.2) 02/27/17 17:24 APTT 24.1 sec (22.0-30.0) 02/27/17 17:24 Sodium 141 mmol/L (137-145) 02/27/17 17:24 Potassium 3.8 mmol/L (3.5-5.1) 02/27/17 17:24 Chloride 103 mmol/L (98-107) 02/27/17 17:24 Carbon Dioxide 28 mmol/L (22-30) 02/27/17 17:24 Anion Gap 10 mmol/L 02/27/17 17:24 BUN 17 mg/dL (7-17) 02/27/17 17:24 Creatinine 0.70 mg/dL (0.52-1.04) 02/27/17 17:24 Est GFR (MDRD) Af Amer >60 (>60 ml/min/1.73 sqM) 02/27/17 17:24 Est GFR (MDRD) Non-Af >60 (>60 ml/min/1.73 sqM) 02/27/17 17:24 Glucose 91 mg/dL (74-99) 02/27/17 17:[address] Glu mg/dL 103 02/27/17 17:24 Hemoglobin A1c 5.2 % (4.0-6.0) 02/27/17 17:24 Calcium 10.2 mg/dL (8.4-10.2) 02/27/17 17:24 Phosphorus 3.6 mg/dL (2.5-4.5) 02/27/17 17:24 Magnesium 1.7 mg/dL (1.6-2.3) 02/27/17 17:24 Iron 47 ug/dL (50-170) L 02/27/17 17:24 TIBC 371 ug/dL (228-460) 02/27/17 17:24 Iron Saturation 12.67 (12.00-45.00) 02/27/17 17:24 Ferritin 20.8 ng/mL (10.0-291.0) 02/27/17 17:24 Total Bilirubin 0.5 mg/dL (0.2-1.3) 02/27/17 17:24 AST 32 U/L (14-36) 02/27/17 17:24 ALT 57 U/L (9-52) H 02/27/17 17:24 Alkaline Phosphatase 55 U/L (38-126) 02/27/17 17:24 Total Protein 7.3 g/dL (6.3-8.2) 02/27/17 17:24 Albumin 4.3 g/dL (3.5-5.0) 02/27/17 17:24 Prealbumin 18.0 mg/dL (18.0-42.0) 02/27/17 17:24 Triglycerides 62 mg/dL (<150) 02/27/17 17:24 Cholesterol 163 mg/dL (<200) 02/27/17 17:24 LDL Cholesterol, Calc 90 mg/dL (0-99) 02/27/17 17:24 HDL Cholesterol 61 mg/dL (40-60) H 02/27/17 17:24 Vitamin A 28 ug/dL (38-106) L 02/27/17 17:24 Vitamin B1 32 ug/L (38-122) L 02/27/17 17:24 Vitamin B12 349.0 pg/mL (200.0-944.0) 02/27/17 17:24 Vitamin D 25-Hydroxy 41.8 ng/mL (30.0-100.0) 02/27/17 17:24 Folate 19.2 ng/mL 02/27/17 17:24 TSH 2.790 mIU/L (0.465-4.680) 02/27/17 17:24 PTH Intact 32.8 pg/mL (14.0-72.0) 02/27/17 17:24 Copper 1161 ug/L (810-1990) 02/27/17 17:24 Selenium 148 mcg/L (63-160) 02/27/17 17:24 Zinc 62 ug/dL (60-130) 02/27/17 17:24 Iron is low. Vitamin A is low. Thiamine is low. Recommend ongoing correction with iron supplement. Recommend vitamin A supplement. Recommend thiamine infusion. Recommend omeprazole in the interim. Objective - Vital Signs Vital signs: Vital Signs Temp 97.7 F 02/27/17 16:09 Pulse 62 02/27/17 16:09 Resp 15 02/27/17 16:09 BP 140/84 02/27/17 16:09 Pulse Ox Intake & Output 02/26/17 02/27/17 02/27/17 18:59 06:59 18:59 Weight 118.07 kg - Labs CBC & Chem 7: 02/27/17 17:24 02/27/17 17:24
== END | disposition home or self-care (01) ==
LOC: BARWHC3 15:15
PROVIDERS: ATTEND Surgery Plastic and Reconstructive Surgery
DX: Z09 Encounter for follow-up examination after completed treatment for conditions other than malignant neoplasm (principal); E66.01 Morbid (severe) obesity due to excess calories; K21.9 Gastro-esophageal reflux disease without esophagitis; E11.9 Type 2 diabetes mellitus without complications; G47.33 Obstructive sleep apnea (adult) (pediatric); F32.9 Major depressive disorder, single episode, unspecified; M16.0 Bilateral primary osteoarthritis of hip; M17.0 Bilateral primary osteoarthritis of knee; I10 Essential (primary) hypertension; E55.9 Vitamin D deficiency, unspecified; E78.00 Pure hypercholesterolemia, unspecified; M79.3 Panniculitis, unspecified; K59.00 Constipation, unspecified; Z90.49 Acquired absence of other specified parts of digestive tract; Z98.84 Bariatric surgery status; Z79.84 Long term (current) use of oral hypoglycemic drugs; Z83.79 Family history of other diseases of the digestive system; Z79.899 Other long term (current) drug therapy; Z83.49 Family history of other endocrine, nutritional and metabolic diseases; Z71.3 Dietary counseling and surveillance; Z68.41 Body mass index [BMI] 40.0-44.9, adult; Z87.891 Personal history of nicotine dependence
CPT/HCPCS: 84255; 84134; 84425; 80061; 80053; 82607; 82728; 82525; 82746; 83540; 83550; 83735; 84100; 84443; 84590; 84630; 85027; 85610; 85730; 82306; 83970; 83036; 97803; G0463; 99211

== ENCOUNTER → 2017-05-01 | Outpatient (CLI) | payer OTHER ==
[2017-05-01 16:23] VITALS: BMI 41.0
[2017-05-01 16:49] VITALS: BP 117/87; PULSE 60; TEMP 97.7
== END | disposition home or self-care (01) ==
LOC: BARWHC3 15:36
PROVIDERS: ATTEND Surgery Plastic and Reconstructive Surgery
DX: E66.01 Morbid (severe) obesity due to excess calories (principal); E21.1 Secondary hyperparathyroidism, not elsewhere classified; E89.1 Postprocedural hypoinsulinemia; D50.9 Iron deficiency anemia, unspecified; E44.0 Moderate protein-calorie malnutrition; E55.9 Vitamin D deficiency, unspecified; K74.1 Hepatic sclerosis; N19 Unspecified kidney failure; K50.90 Crohn's disease, unspecified, without complications; Z68.41 Body mass index [BMI] 40.0-44.9, adult
CPT/HCPCS: 97803; G0463; 99211

== ENCOUNTER → 2017-07-04 | Outpatient (CLI) | payer OTHER ==
[2017-07-04 17:22] LABS: HCT 40.5 % (34.0-46.0); HGB 13.4 gm/dL (11.4-16.0); MCH 32.2 pg (25.0-35.0); MCV 97.3 fL (80.0-100.0); Mean Platelet Volume 8.5; Platelet Count 237 k/uL (150-450); RBC 4.16 m/uL (3.80-5.40); RDW 13.4 % (11.5-15.5); WBC 6.4 k/uL (3.8-10.6)
[2017-07-04 17:30] LABS: INR 1.1 (<1.2); Partial Thromboplastin Time 24.7 sec (22.0-30.0); Prothrombin Time 10.4 sec (9.0-12.0)
[2017-07-04 17:43] LABS: ALT 30 U/L (9-52); AST 22 U/L (14-36); Alkaline Phosphatase 54 U/L (38-126); Anion Gap 11 mmol/L; Blood Urea Nitrogen 20 mg/dL (7-17); Calcium 9.8 mg/dL (8.4-10.2); Carbon Dioxide 26 mmol/L (22-30); Chloride 103 mmol/L (98-107); Cholesterol 185 mg/dL (<200); Glucose 83 mg/dL (74-99); HDL Cholesterol 62 mg/dL (40-60); LDL Cholesterol,Calculated 110 mg/dL (0-99); Magnesium 1.9 mg/dL (1.6-2.3); Phosphorus 4.7 mg/dL (2.5-4.5); Potassium 3.9 mmol/L (3.5-5.1); Sodium 140 mmol/L (137-145); Total Bilirubin 0.4 mg/dL (0.2-1.3); Total Protein 6.7 g/dL (6.3-8.2); Triglycerides 65 mg/dL (<150)
[2017-07-05 00:34] LABS: Iron Saturation 15.9 (12.00-45.00)
[2017-07-05 00:42] LABS: Vitamin D 25 Hydroxy 47.7 ng/mL (30.0-100.0)
[2017-07-05 01:04] LABS: Parathyroid Hormone Intact 35.4 pg/mL (14.0-72.0)
[2017-07-05 01:24] LABS: Hemoglobin A1C 5.2 % (4.0-6.0)
[2017-07-05 15:30] LABS: Zinc, Serum 55 ug/dL (60-130)
[2017-07-06 10:12] LABS: Vitamin A 38 ug/dL (38-106)
[2017-07-08 06:15] LABS: Vitamin B1 62 ug/L (38-122)
== END ==
LOC: LABWHC1 16:56
PROVIDERS: ATTEND Surgery Plastic and Reconstructive Surgery
DX: E66.01 Morbid (severe) obesity due to excess calories (principal); E21.1 Secondary hyperparathyroidism, not elsewhere classified; E89.1 Postprocedural hypoinsulinemia; D50.9 Iron deficiency anemia, unspecified; E44.0 Moderate protein-calorie malnutrition; N19 Unspecified kidney failure; K50.90 Crohn's disease, unspecified, without complications; E55.9 Vitamin D deficiency, unspecified
CPT/HCPCS: 36415; 80053; 80061; 82306; 82525; 82607; 82728; 82746; 83036; 83540; 83550; 83735; 83970; 84100; 84134; 84255; 84425; 84443; 84590; 84630; 85027; 85610; 85730

== ENCOUNTER → 2017-07-24 | Outpatient (CLI) | payer OTHER ==
[2017-07-24 16:03] VITALS: BP 126/75; PULSE 51; RESP 14; TEMP 97.9; BMI 37.3
--- NOTE | 2017-07-24 17:30 | P.PN ---
Subjective Progress Note Date: 07/24/17 HPI: She is slowing down with weight loss. Lost over 100 + pounds. Anniversary in October. Protein is over 50 grams daily. NO GERD. She reports back pain. She has rash along the skin. PLAN: 1. Labs for bariatric 2. She is 9 months out. 3. Follow up in anniversary. Objective - Vital Signs Vital signs: Vital Signs Temp 97.9 F 07/24/17 15:52 Pulse 51 L 07/24/17 15:52 Resp 14 07/24/17 15:52 BP 126/75 07/24/17 15:52 Pulse Ox Intake & Output 07/23/17 07/24/17 07/24/17 18:59 06:59 18:59 Weight 99.246 kg
== END | disposition home or self-care (01) ==
LOC: BARWHC3 15:31
PROVIDERS: ATTEND Surgery Plastic and Reconstructive Surgery
DX: E66.01 Morbid (severe) obesity due to excess calories (principal); E21.1 Secondary hyperparathyroidism, not elsewhere classified; D50.9 Iron deficiency anemia, unspecified; K90.9 Intestinal malabsorption, unspecified; E55.9 Vitamin D deficiency, unspecified; K74.1 Hepatic sclerosis; N19 Unspecified kidney failure; K50.90 Crohn's disease, unspecified, without complications
CPT/HCPCS: 99211

== ENCOUNTER → 2017-10-16 | Outpatient (CLI) | payer OTHER ==
[2017-10-16 08:08] LABS: HCT 43.4 % (34.0-46.0); HGB 14.5 gm/dL (11.4-16.0); MCH 32.4 pg (25.0-35.0); MCHC 33.4 g/dL (31.0-37.0); MCV 97.2 fL (80.0-100.0); Mean Platelet Volume 8.2; Platelet Count 246 k/uL (150-450); RBC 4.46 m/uL (3.80-5.40); RDW 12.9 % (11.5-15.5); WBC 5.2 k/uL (3.8-10.6)
[2017-10-16 08:17] LABS: INR 1.1 (<1.2); Partial Thromboplastin Time 25.2 sec (22.0-30.0); Prothrombin Time 10.3 sec (9.0-12.0)
[2017-10-16 08:43] LABS: ALT 28 U/L (9-52); AST 20 U/L (14-36); Alkaline Phosphatase 53 U/L (38-126); Anion Gap 10 mmol/L; Blood Urea Nitrogen 17 mg/dL (7-17); Calcium 9.8 mg/dL (8.4-10.2); Carbon Dioxide 28 mmol/L (22-30); Chloride 104 mmol/L (98-107); Cholesterol 189 mg/dL (<200); Glucose 94 mg/dL (74-99); HDL Cholesterol 65 mg/dL (40-60); LDL Cholesterol,Calculated 113 mg/dL (0-99); Phosphorus 4.4 mg/dL (2.5-4.5); Potassium 3.9 mmol/L (3.5-5.1); Sodium 142 mmol/L (137-145); Total Bilirubin 0.7 mg/dL (0.2-1.3); Triglycerides 56 mg/dL (<150)
[2017-10-16 16:02] LABS: Hemoglobin A1C 5.5 % (4.0-6.0)
[2017-10-16 17:15] LABS: Iron Saturation 23.68 (12.00-45.00)
[2017-10-16 17:22] LABS: Vitamin D 25 Hydroxy 44.1 ng/mL (30.0-100.0)
[2017-10-16 17:39] LABS: Folate, Serum 12.1 ng/mL
[2017-10-16 18:26] LABS: Parathyroid Hormone Intact 49.8 pg/mL (14.0-72.0)
[2017-10-17 15:27] LABS: Zinc, Serum 83 ug/dL (60-130)
[2017-10-18 06:02] LABS: Vitamin A 39 ug/dL (38-106)
[2017-10-18 10:17] LABS: Vitamin B1 47 ug/L (38-122)
== END | disposition home or self-care (01) ==
LOC: LABWHC1 07:46
PROVIDERS: ATTEND Surgery Plastic and Reconstructive Surgery
DX: E66.01 Morbid (severe) obesity due to excess calories (principal); E21.1 Secondary hyperparathyroidism, not elsewhere classified; E89.1 Postprocedural hypoinsulinemia; D50.9 Iron deficiency anemia, unspecified; K90.9 Intestinal malabsorption, unspecified; K76.9 Liver disease, unspecified; N19 Unspecified kidney failure; K50.90 Crohn's disease, unspecified, without complications; E55.9 Vitamin D deficiency, unspecified
CPT/HCPCS: 36415; 80053; 80061; 82306; 82525; 82607; 82728; 82746; 83036; 83540; 83550; 83735; 83970; 84100; 84134; 84255; 84425; 84443; 84590; 84630; 85027; 85610; 85730

== ENCOUNTER → 2017-10-23 | Outpatient (CLI) | payer OTHER ==
[2017-10-23 17:27] VITALS: BP 149/91; PULSE 59; TEMP 97.8; BMI 34.7
--- NOTE | 2017-10-23 17:33 | P.PN ---
Subjective Progress Note Date: 10/23/17 HPI: She is 1 year out from the sleeve. She is at 60 grams of protein daily. She has achieved her weight loss of goal over 100+ pound weight loss. No abdominal pain. No GERD. She is taking her MVI. She reports redness of the skin. Back pain from her pannus is being reported. ABDOMEN: She has panniculitis. PLAN: 1. Increase protein intake 2. Has Nystatin powder 3. Needs stable weight loss. 4. MVI 5. Labs were reviewed and doing well.
== END | disposition home or self-care (01) ==
LOC: BARWHC3 15:39
PROVIDERS: ATTEND Surgery Plastic and Reconstructive Surgery
DX: M79.3 Panniculitis, unspecified (principal); E66.01 Morbid (severe) obesity due to excess calories; Z68.34 Body mass index [BMI] 34.0-34.9, adult
CPT/HCPCS: 97803; G0463; 99211

== ENCOUNTER → 2018-02-19 | Outpatient (CLI) | payer OTHER ==
--- NOTE | 2018-02-19 16:04 | P.PN ---
Subjective Progress Note Date: 02/19/18 DATE OF SERVICE: 02/19/2018 CHIEF COMPLAINT: Follow sleeve gastrectomy HISTORY OF PRESENT ILLNESS: The patient is a 47-year-old female who is status post robotic-assisted laparoscopic sleeve gastrectomy on 10/29/2016. She is 1.5 years out. She denies any abdominal pain. No reports of gastroesophageal reflux disease. She reports trouble with her pannus including back pain and skin infections. Otherwise, she denies any troubles from her sleeve gastrectomy. She is also looking into a panniculectomy. She comes in 195 pounds from 204 pounds 3 months ago. She has lost 9 pounds in 3 months. She has lost 136 pounds, lifetime. At her height of 5 foot 4.25, her ideal body weight is 144 pounds. Her highest weight was 331 pounds. Percent excess weight loss is 73 %. Her body mass index is reduced from 56.5 down to 33.2 PHYSICAL EXAM: VITAL SIGNS: Height 5 foot 4.25 inches, weight 195 pounds. BMI 33.2 Vital Signs Temp 97.5 F L 02/19/18 16:12 Pulse 61 02/19/18 16:12 Resp 16 02/19/18 16:12 BP 144/78 02/19/18 16:12 Pulse Ox GENERAL: Well-developed female in no acute distress. HEENT: No scleral icterus. Extraocular was grossly intact. No nasal drainage. NECK: Supple without lymphadenopathy. CHEST: Nonlabored respirations with equal bilateral excursions. CARDIOVASCULAR: Regular rate. Distal 2+ pulses. ABDOMEN: 15 pounds pannus. Pannus over pubis 7 cm. Hyperemia consistent with panniculitis. MUSCULOSKELETAL: No clubbing, cyanosis, or edema. Gross strength 5/5 distal lower extremities. NEURO: No focal or lateralizing signs. Cranial nerves 2 through 12 grossly within normal limits. PSYCH: Appropriate affect. Alert and oriented to person, place and time. SKIN: Well perfused. Good skin turgor. ASSESSMENT: 1. Morbid obesity due to excess calories. 2. Body mass index of 56.5 to 33.2 3. Diabetes type 2, improved. 4. Obstructive sleep apnea. 5. Depression. 6. Osteoarthritis of the bilateral hips. 7. Osteoarthritis of the bilateral knees. 8. Gastroesophageal reflux disease. 9. Dietary surveillance and counseling. 10. Hypertension. 11. Vitamin D deficiency. 12. Hypercholesterolemia. 13. Status post sleeve gastrectomy. 14. Panniculitis. PLAN: 1. Need nystatin prescription for symptomatic panniculitis. 2. Recommend local skin care at least for 6 months prior to surgical options. 2. Will need bariatric labs
[2018-02-19 16:15] VITALS: BP 144/78; PULSE 61; RESP 16; TEMP 97.5; BMI 33.2
== END | disposition home or self-care (01) ==
LOC: BARWHC3 15:38
PROVIDERS: ATTEND Surgery Plastic and Reconstructive Surgery
DX: Z09 Encounter for follow-up examination after completed treatment for conditions other than malignant neoplasm (principal); E66.01 Morbid (severe) obesity due to excess calories; K21.9 Gastro-esophageal reflux disease without esophagitis; E65 Localized adiposity; M54.9 Dorsalgia, unspecified; L08.9 Local infection of the skin and subcutaneous tissue, unspecified; R68.89 Other general symptoms and signs; E11.9 Type 2 diabetes mellitus without complications; G47.33 Obstructive sleep apnea (adult) (pediatric); F32.9 Major depressive disorder, single episode, unspecified; M16.0 Bilateral primary osteoarthritis of hip; M17.0 Bilateral primary osteoarthritis of knee; I10 Essential (primary) hypertension; E55.9 Vitamin D deficiency, unspecified; E78.00 Pure hypercholesterolemia, unspecified; M79.3 Panniculitis, unspecified; Z98.890 Other specified postprocedural states; Z68.33 Body mass index [BMI] 33.0-33.9, adult; Z98.84 Bariatric surgery status; Z71.3 Dietary counseling and surveillance
CPT/HCPCS: 99211

== ENCOUNTER → 2018-12-17 | Outpatient (CLI) | payer OTHER ==
[2018-12-17 16:42] VITALS: BP 138/67; PULSE 59; RESP 16; TEMP 97.9; BMI 34.1
--- NOTE | 2018-12-17 17:15 | P.PN ---
Subjective Progress Note Date: 12/17/18 DATE OF SERVICE: 12/17/2018 CHIEF COMPLAINT: Follow sleeve gastrectomy HISTORY OF PRESENT ILLNESS: The patient is a 48-year-old female who is status post robotic-assisted laparoscopic sleeve gastrectomy on 10/29/2016. She is over 2 years out. She comes in with troubles with her skin including recurrent skin infections along her abdomen. She has persistent lower back pain. No reports of abdominal pain. No reports of gastroesophageal reflux disease. She has over 2+ years of recurrent skin infections uncontrolled with medications. She comes in 200 pounds from 195 pounds, 10 months ago. She has gained 5 pounds in 10 months. She has lost 131 pounds, lifetime. At her height of 5 foot 4.25, her ideal body weight is 144 pounds. Her highest weight was 331 pounds. Percent excess weight loss is 70 %. Her body mass index is reduced from 56.5 down to 34.1 PAST MEDICAL HISTORY: 1. Diabetes type 2, now resolved 2. Depression. 3. Morbid obesity due to excess calories, initial 56.5 4. Osteoarthritis of the bilateral hips. 5. Osteoarthritis of the bilateral knees. 6. Gallstones 7. Gastroesophageal reflux disease. 8. Body mass index, 56.5, initial PAST SURGICAL HISTORY: 1. Upper endoscopy. 2. Tubal ligation. 3. Sleeve gastrectomy HOME MEDICATIONS: Previous Rx's Medication Instructions Recorded Ergocalciferol [Vitamin D2 50,000 unit PO Q7D #12 cap 01/14/19 (DRISDOL)] ALLERGIES: None. SOCIAL HISTORY: No active tobacco use. She is a past tobacco user. FAMILY HISTORY: Denies any DVTs, pulmonary embolisms in her family. Denies any ulcerative colitis disease or Crohn's. She does have a family history of morbid obesity. He strong family history of esophageal dysmotility including gastroesophageal reflux disease. Also has a family history of gallbladder disorder. REVIEW OF ORGAN SYSTEMS: CONSTITUTIONAL: At her height of 5 foot 4.25, her ideal body weight is 144 pounds. Her highest weight was 331 pounds. Her body mass index, 56.5. HEENT: Denies any active troubles with vision or hearing. ENDOCRINE: No reports of hypothyroidism. Has insulin resistance with diabetes, now resolved. CARDIOVASCULAR: No reports of palpitations or heart attacks or chest pain. RESPIRATORY: Has daytime somnolence including snoring, suspicious for sleep apnea, now resolved. No recent asthma. GI: Denies any bright red blood per rectum, diarrhea or constipation. Has intermittent heartburn. MUSCULOSKELETAL: Describes generalized muscle aches, including lower back pain or joint pain, improved. NEURO: No reports of headaches or seizure disorders. PSYCH: Has depression. Recent suicidal ideation. HEMATOLOGIC: Denies any abnormal bleeding or bruising. SKIN: Has panniculitis. No skin cancer. PHYSICAL EXAM: VITAL SIGNS: Height 5 foot 4.25 inches, weight 200 pounds. BMI 34.1 Vital Signs Temp 97.9 F 12/17/18 16:39 Pulse 59 L 12/17/18 16:39 Resp 16 12/17/18 16:39 BP 138/67 12/17/18 16:39 Pulse Ox GENERAL: Well-developed female in no acute distress. HEENT: No scleral icterus. Extraocular was grossly intact. No nasal drainage. NECK: Supple without lymphadenopathy. CHEST: Nonlabored respirations with equal bilateral excursions. CARDIOVASCULAR: Regular rate. Distal 2+ pulses. ABDOMEN: Severe panniculitis with 15 pounds of pannus. Soft, nontender. MUSCULOSKELETAL: No clubbing, cyanosis, or edema. Gross strength 5/5 distal lower extremities. NEURO: No focal or lateralizing signs. Cranial nerves 2 through 12 grossly within normal limits. PSYCH: Appropriate affect. Alert and oriented to person, place and time. SKIN: Well perfused. Good skin turgor. ASSESSMENT: 1. Morbid obesity due to excess calories. 2. Body mass index of 56.5 to 34.1 3. Diabetes type 2, improved. 4. Obstructive sleep apnea. 5. Depression. 6. Osteoarthritis of the bilateral hips. 7. Osteoarthritis of the bilateral knees. 8. Gastroesophageal reflux disease. 9. Dietary surveillance and counseling. 10. Hypertension. 11. Vitamin D deficiency. 12. Hypercholesterolemia. 13. Status post sleeve gastrectomy. 14. Panniculitis. PLAN: 1. Recommend panniculectomy for chronic panniculitis with concomittant severe lower back pain and uncontrolled symptoms despite systemic and local treatment including limitation of activities of daily living. Panniculectomy should correct her functional deficits. 2. Recommend 2 week protein diet for optimal recovery 3. Risks of bleeding, needs for drains, flap failure, infection, need for further surgery were described. She is high risk for adrianne-operative complications with anticipated 10+ skin resection. 4. Continue Nystatin powder. 5. Inpatient hospitalization also described 6. DVT prophylaxis. 7. Antibiotic prophylaxis 8. Will need correction of all vitamin deficiencies prior to panniculectomy. Laboratory Last Values WBC 6.1 k/uL (3.8-10.6) 12/17/18 17:45 RBC 4.08 m/uL (3.80-5.40) 12/17/18 17:45 Hgb 13.0 gm/dL (11.4-16.0) 12/17/18 17:45 Hct 39.8 % (34.0-46.0) 12/17/18 17:45 MCV 97.6 fL (80.0-100.0) 12/17/18 17:45 MCH 31.8 pg (25.0-35.0) 12/17/18 17:45 MCHC 32.6 g/dL (31.0-37.0) 12/17/18 17:45 RDW 12.5 % (11.5-15.5) 12/17/18 17:45 Plt Count 313 k/uL (150-450) 12/17/18 17:45 PT 10.2 sec (9.0-12.0) 12/17/18 17:45 INR 1.0 (<1.2) 12/17/18 17:45 APTT 25.4 sec (22.0-30.0) 12/17/18 17:45 Sodium 139 mmol/L (135-145) 12/17/18 17:45 Potassium 3.9 mmol/L (3.5-5.5) 12/17/18 17:45 Chloride 103 mmol/L (96-109) 12/17/18 17:45 Carbon Dioxide 27.9 mmol/L (21.6-31.8) 12/17/18 17:45 Anion Gap 8.10 mmol/L (4.00-12.00) 12/17/18 17:45 BUN 22.0 mg/dL (9.0-27.0) 12/17/18 17:45 Creatinine 0.8 mg/dL (0.6-1.5) 12/17/18 17:45 Est GFR (CKD-EPI)AfAm 101.8 (60.0-200.0) 12/17/18 17:45 Est GFR (CKD-EPI)NonAf 87.8 (60.0-200.0) 12/17/18 17:45 BUN/Creatinine Ratio 27.50 Ratio (12.00-20.00) H 12/17/18 17:45 Glucose 80 mg/dL (70-110) 12/17/18 17:[address] Glu mg/dL 103 12/17/18 17:45 Hemoglobin A1c 5.2 % (4.0-6.0) 12/17/18 17:45 Calcium 9.8 mg/dL (8.7-10.3) 12/17/18 17:45 Phosphorus 4.2 mg/dL (2.4-5.1) 12/17/18 17:45 Magnesium 1.8 mg/dL (1.5-2.4) 12/17/18 17:45 Iron 22 ug/dL (50-170) L 12/17/18 17:45 TIBC 438 ug/dL (228-460) 12/17/18 17:45 % Saturation 5.02 (12.00-45.00) L 12/17/18 17:45 Ferritin 9.0 ng/mL (10.0-291.0) L 12/17/18 17:45 Total Bilirubin 0.4 mg/dL (0.3-1.2) 12/17/18 17:45 AST 18 U/L (13-35) 12/17/18 17:45 ALT 15 U/L (8-44) 12/17/18 17:45 Alkaline Phosphatase 51 U/L (41-126) 12/17/18 17:45 Total Protein 6.7 g/dL (6.2-8.2) 12/17/18 17:45 Albumin 4.40 g/dL (3.80-4.90) 12/17/18 17:45 Globulin 2.3 g/dL (1.6-3.3) 12/17/18 17:45 Albumin/Globulin Ratio 1.91 g/dL (1.60-3.17) 12/17/18 17:45 Prealbumin 25.0 mg/dL (18.0-42.0) 12/17/18 17:45 Triglycerides <50.0 mg/dL (0.0-149.0) 12/17/18 17:45 Cholesterol 188 mg/dL (0-200) 12/17/18 17:45 LDL Cholesterol, Calc mg/dL (0.0-131.0) 12/17/18 17:45 VLDL Cholesterol, Calc mg/dL (5.00-40.00) 12/17/18 17:45 HDL Cholesterol 82.0 mg/dL (40.0-60.0) H 12/17/18 17:45 Cholesterol/HDL Ratio 2.29 12/17/18 17:45 Vitamin A 57 ug/dL (38-106) 12/17/18 17:45 Vitamin B1 59 ug/L (38-122) 12/17/18 17:45 Vitamin B12 767.0 pg/mL (200.0-944.0) 12/17/18 17:45 Vitamin D 25-Hydroxy 29.6 ng/mL (30.0-100.0) L 12/17/18 17:45 Folate 10.7 ng/mL 12/17/18 17:45 TSH 5.380 uIU/mL (0.350-5.500) 12/17/18 17:45 PTH Intact 48.3 pg/mL (14.0-72.0) 12/17/18 17:45 Copper 1288 ug/L (810-1990) 12/17/18 17:45 Selenium 131 mcg/L (63-160) 12/17/18 17:45 Zinc Cancelled 12/17/18 17:45 Miscellaneous Test Zinc 12/17/18 17:45 Misc Test Result See comment 12/17/18 17:45 Iron is low Vitamin D is low Recommend iron infusion. Objective - Vital Signs Vital signs: Vital Signs Temp 97.9 F 12/17/18 16:39 Pulse 59 L 12/17/18 16:39 Resp 16 12/17/18 16:39 BP 138/67 12/17/18 16:39 Pulse Ox Intake & Output 12/16/18 12/17/18 12/17/18 18:59 06:59 18:59 Weight 90.889 kg - Labs CBC & Chem 7: 12/17/18 17:45 12/17/18 17:45
[2018-12-17 17:58] LABS: HCT 39.8 % (34.0-46.0); MCH 31.8 pg (25.0-35.0); MCHC 32.6 g/dL (31.0-37.0); MCV 97.6 fL (80.0-100.0); Mean Platelet Volume 7.1; Platelet Count 313 k/uL (150-450); RBC 4.08 m/uL (3.80-5.40); RDW 12.5 % (11.5-15.5); WBC 6.1 k/uL (3.8-10.6)
[2018-12-17 18:12] LABS: Partial Thromboplastin Time 25.4 sec (22.0-30.0); Prothrombin Time 10.2 sec (9.0-12.0)
[2018-12-18 00:15] LABS: % Iron Saturation 5.02 (12.00-45.00); ALT 15 U/L (8-44); AST 18 U/L (13-35); African American GFR (CKD) 101.8 (60.0-200.0); Albumin/Globulin Ratio 1.91 (1.60-3.17); Alkaline Phosphatase 51 U/L (41-126); Calcium 9.8 mg/dL (8.7-10.3); Carbon Dioxide 27.9 mmol/L (21.6-31.8); Chloride 103 mmol/L (96-109); Chol/HDL Ratio 2.29; Cholesterol 188 mg/dL (0-200); Folate, Serum 10.7 ng/mL; Globulin 2.3 g/dL (1.6-3.3); Glucose 80 mg/dL (70-110); Iron 22 ug/dL (50-170); Magnesium 1.8 mg/dL (1.5-2.4); Non-African American GFR(CKD) 87.8 (60.0-200.0); Phosphorus 4.2 mg/dL (2.4-5.1); Potassium 3.9 mmol/L (3.5-5.5); Sodium 139 mmol/L (135-145); Total Bilirubin 0.4 mg/dL (0.3-1.2); Total Iron Binding Capacity 438 ug/dL (228-460); Total Protein 6.7 g/dL (6.2-8.2); Triglycerides <50.0 mg/dL (0.0-149.0)
[2018-12-18 02:20] LABS: Hemoglobin A1C 5.2 % (4.0-6.0)
[2018-12-20 12:38] LABS: Vit B1(Thiamine) 59 ug/L (38-122)
[2018-12-20 19:20] LABS: Selenium 131 mcg/L (63-160)
[2018-12-22 07:19] LABS: Vitamin A 57 ug/dL (38-106)
== END | disposition home or self-care (01) ==
LOC: BARWHC3 15:57
PROVIDERS: ATTEND Surgery Plastic and Reconstructive Surgery
DX: Z48.815 Encounter for surgical aftercare following surgery on the digestive system (principal); E66.01 Morbid (severe) obesity due to excess calories; E11.9 Type 2 diabetes mellitus without complications; G47.33 Obstructive sleep apnea (adult) (pediatric); F32.9 Major depressive disorder, single episode, unspecified; M16.0 Bilateral primary osteoarthritis of hip; M17.0 Bilateral primary osteoarthritis of knee; K21.9 Gastro-esophageal reflux disease without esophagitis; I10 Essential (primary) hypertension; E55.9 Vitamin D deficiency, unspecified; E78.00 Pure hypercholesterolemia, unspecified; M79.3 Panniculitis, unspecified; E21.1 Secondary hyperparathyroidism, not elsewhere classified; D50.9 Iron deficiency anemia, unspecified; E44.0 Moderate protein-calorie malnutrition; N19 Unspecified kidney failure; K50.90 Crohn's disease, unspecified, without complications; Z98.84 Bariatric surgery status; Z71.3 Dietary counseling and surveillance; Z68.43 Body mass index [BMI] 50.0-59.9, adult
CPT/HCPCS: 84255; 84134; 84425; 80061; 80053; 82607; 82728; 82525; 82746; 83540; 83550; 83735; 84100; 84443; 84590; 85027; 85610; 85730; 84630; 82306; 83970; 83036; 36415; G0463; 99211

== ENCOUNTER → 2019-01-14 | Outpatient (CLI) | payer OTHER ==
--- NOTE | 2019-01-14 16:23 | P.PN ---
Subjective Progress Note Date: 01/14/19 DATE OF SERVICE: 01/14/2019 CHIEF COMPLAINT: Follow sleeve gastrectomy HISTORY OF PRESENT ILLNESS: The patient is a 48-year-old female who is status post robotic-assisted laparoscopic sleeve gastrectomy on 10/29/2016. She is over 2 years out. She comes in with uncontrolled symptoms of panniculitis de spite over 2+ years of treatment with prescription Nystatin powder and systemic therapy. She comes in with stable weight loss over 130+ pounds. She continues to use Nystatin despite recalcitrant symptoms. She reports troubles with grooming. At her height of 5 foot 4.25, her ideal body weight is 144 pounds. Her highest weight was 331 pounds. Percent excess weight loss is 70 %. Her body mass index is reduced from 56.5 down to 34.1. She comes in 200 pounds unchanged from 1 month ago. She has lost 131 pounds, lifetime. PAST MEDICAL HISTORY: 1. Diabetes type 2, now resolved 2. Depression. 3. Morbid obesity due to excess calories, initial 56.5 4. Osteoarthritis of the bilateral hips. 5. Osteoarthritis of the bilateral knees. 6. Gallstones 7. Gastroesophageal reflux disease. 8. Body mass index, 56.5, initial PAST SURGICAL HISTORY: 1. Upper endoscopy. 2. Tubal ligation. 3. Sleeve gastrectomy HOME MEDICATIONS: Previous Rx's Medication Instructions Recorded Ergocalciferol [Vitamin D2 50,000 unit PO Q7D #12 cap 01/14/19 (DRISDOL)] ALLERGIES: None. SOCIAL HISTORY: No active tobacco use. She is a past tobacco user. FAMILY HISTORY: Denies any DVTs, pulmonary embolisms in her family. Denies any ulcerative colitis disease or Crohn's. She does have a family history of morbid obesity. He strong family history of esophageal dysmotility including gastroesophageal reflux disease. Also has a family history of gallbladder disorder. REVIEW OF ORGAN SYSTEMS: CONSTITUTIONAL: At her height of 5 foot 4.25, her ideal body weight is 144 pounds. Her highest weight was 331 pounds. Her body mass index, 56.5. HEENT: Denies any active troubles with vision or hearing. ENDOCRINE: No reports of hypothyroidism. Has insulin resistance with diabetes, now resolved. CARDIOVASCULAR: No reports of palpitations or heart attacks or chest pain. RESPIRATORY: Has daytime somnolence including snoring, suspicious for sleep apnea, now resolved. No recent asthma. GI: Denies any bright red blood per rectum, diarrhea or constipation. Has intermittent heartburn. MUSCULOSKELETAL: Describes generalized muscle aches, including lower back pain or joint pain, improved. NEURO: No reports of headaches or seizure disorders. PSYCH: Has depression. Recent suicidal ideation. HEMATOLOGIC: Denies any abnormal bleeding or bruising. SKIN: Has panniculitis. No skin cancer. PHYSICAL EXAM: VITAL SIGNS: Height 5 foot 4.25 inches, weight 200 pounds. BMI 34.1 Vital Signs Temp 97.6 F 01/14/19 16:36 Pulse 65 01/14/19 16:36 Resp 16 01/14/19 16:36 BP 122/67 01/14/19 16:36 Pulse Ox GENERAL: Well-developed female in no acute distress. HEENT: No scleral icterus. Extraocular was grossly intact. No nasal drainage. NECK: Supple without lymphadenopathy. CHEST: Nonlabored respirations with equal bilateral excursions. CARDIOVASCULAR: Regular rate. Distal 2+ pulses. ABDOMEN: Hyperemia of pannus. Pannus weight of 15 pounds. Soft, nontender. MUSCULOSKELETAL: No clubbing, cyanosis, or edema. Gross strength 5/5 distal lower extremities. NEURO: No focal or lateralizing signs. Cranial nerves 2 through 12 grossly within normal limits. PSYCH: Appropriate affect. Alert and oriented to person, place and time. SKIN: Well perfused. Good skin turgor. ASSESSMENT: 1. Morbid obesity due to excess calories. 2. Body mass index of 56.5 to 34.1 3. Diabetes type 2, improved. 4. Obstructive sleep apnea. 5. Depression. 6. Osteoarthritis of the bilateral hips. 7. Osteoarthritis of the bilateral knees. 8. Gastroesophageal reflux disease. 9. Dietary surveillance and counseling. 10. Hypertension. 11. Vitamin D deficiency. 12. Hypercholesterolemia. 13. Status post sleeve gastrectomy. 14. Panniculitis. 15. Status post massive weight loss, 131 pounds PLAN: 1. Recommend panniculectomy for chronic panniculitis with concomittant severe lower back pain and uncontrolled symptoms despite systemic and local treatment including limitation of activities of daily living. Anticipated resection over 10 pounds described. Panniculectomy should correct her functional deficits. 2. Recommend 2 week protein diet for optimal recovery 3. Risks of bleeding, needs for drains, flap failure, infection, need for further surgery were described. She is high risk for adrianne-operative complications with anticipated 10+ pound skin resection. 4. Inpatient hospitalization also described 5. DVT prophylaxis. 6. Antibiotic prophylaxis 7. Will need correction of all vitamin deficiencies prior to panniculectomy.
[2019-01-14 16:38] VITALS: BP 122/67; PULSE 65; RESP 16; TEMP 97.6; BMI 34.1
== END | disposition home or self-care (01) ==
LOC: BARWHC3 15:56
PROVIDERS: ATTEND Surgery Plastic and Reconstructive Surgery
DX: Z48.815 Encounter for surgical aftercare following surgery on the digestive system (principal); E66.01 Morbid (severe) obesity due to excess calories; G47.33 Obstructive sleep apnea (adult) (pediatric); E11.9 Type 2 diabetes mellitus without complications; M16.0 Bilateral primary osteoarthritis of hip; M17.0 Bilateral primary osteoarthritis of knee; K21.9 Gastro-esophageal reflux disease without esophagitis; I10 Essential (primary) hypertension; E55.9 Vitamin D deficiency, unspecified; E78.00 Pure hypercholesterolemia, unspecified; M79.3 Panniculitis, unspecified; Z83.49 Family history of other endocrine, nutritional and metabolic diseases; Z68.34 Body mass index [BMI] 34.0-34.9, adult; Z98.84 Bariatric surgery status; Z71.3 Dietary counseling and surveillance; Z83.79 Family history of other diseases of the digestive system; Z87.891 Personal history of nicotine dependence; Z79.899 Other long term (current) drug therapy
CPT/HCPCS: 99211

== ENCOUNTER → 2019-05-06 | Outpatient (CLI) | payer OTHER ==
[2019-05-06 14:54] LABS: Basophils # (A) 0.1 k/uL (0-0.2); Basophils % (A) 1 %; Eosinophils # (A) 0.2 k/uL (0-0.7); Eosinophils % (A) 3 %; HCT 46.8 % (34.0-46.0); HGB 15.3 gm/dL (11.4-16.0); Lymphocytes # (A) 2.6 k/uL (1.0-4.8); Lymphocytes % (A) 37 %; MCH 31.2 pg (25.0-35.0); MCHC 32.7 g/dL (31.0-37.0); MCV 95.3 fL (80.0-100.0); Mean Platelet Volume 8.5; Monocytes # (A) 0.6 k/uL (0-1.0); Monocytes % (A) 8 %; Neutrophils # (A) 3.4 k/uL (1.3-7.7); Neutrophils % (A) 48 %; Platelet Count 265 k/uL (150-450); RBC 4.91 m/uL (3.80-5.40); RDW 12.8 % (11.5-15.5)
[2019-05-06 15:04] LABS: ALT 78 U/L (4-34); AST 42 U/L (14-36); African American GFR (CKD) >90 (>60 ml/min/1.73 sqM); Albumin 4.8 g/dL (3.5-5.0); Alkaline Phosphatase 57 U/L (38-126); Anion Gap 8 mmol/L; Blood Urea Nitrogen 22 mg/dL (7-17); Calcium 10.3 mg/dL (8.4-10.2); Carbon Dioxide 30 mmol/L (22-30); Chloride 100 mmol/L (98-107); Glucose 89 mg/dL (74-99); Non-African American GFR(CKD) >90 (>60 ml/min/1.73 sqM); Potassium 4.2 mmol/L (3.5-5.1); Sodium 138 mmol/L (137-145); Total Bilirubin 0.6 mg/dL (0.2-1.3); Total Protein 7.8 g/dL (6.3-8.2)
== END | disposition home or self-care (01) ==
LOC: LABPAT 14:04
PROVIDERS: ATTEND Surgery Plastic and Reconstructive Surgery
DX: Z01.818 Encounter for other preprocedural examination (principal); Z01.810 Encounter for preprocedural cardiovascular examination; Z01.812 Encounter for preprocedural laboratory examination
CPT/HCPCS: 36415; 80053; 85025; 93005

== ENCOUNTER → 2019-05-06 | Outpatient (CLI) | payer OTHER ==
--- NOTE | 2019-05-06 13:58 | P.PN ---
Subjective Progress Note Date: 05/06/19 DATE OF SERVICE: 05/06/2019 CHIEF COMPLAINT: Panniculitis HISTORY OF PRESENT ILLNESS: The patient is a 48-year-old female who is status post robotic-assisted laparoscopic sleeve gastrectomy on 10/29/2016. She is almost 3 years out. She comes in with medical refractory panniculitis. She has long standing history of panniculitis for over 3 years. She reports painful skin ulcerations and breakdown along her pannus despite medical treatments and prescriptions. She has been using prescription strength Nystatin powder without improvement. She has pulling sensation along her lower back from her pannus. She has troubles with grooming and hygiene as a result of her pannus. Her pannus interferes with her activities of daily living including dressing, bathing, and hygiene. She presents for evaluation for a panniculectomy. At her height of 5 foot 4.25, her ideal body weight is 144 pounds. Her highest weight was 331 pounds. Her body mass index is reduced from 56.5 down to 32.5. She comes in 194 pounds from 200 pounds, 4 months ago. She has lost 7 pounds in 4 months. She has lost 137 pounds, lifetime. Percent excess weight loss is 73 %, lifetime. PAST MEDICAL HISTORY: 1. Diabetes type 2, now resolved 2. Depression. 3. Morbid obesity due to excess calories, initial 56.5 4. Osteoarthritis of the bilateral hips. 5. Osteoarthritis of the bilateral knees. 6. Gallstones 7. Gastroesophageal reflux disease. 8. Body mass index, 56.5, initial PAST SURGICAL HISTORY: 1. Upper endoscopy. 2. Tubal ligation. 3. Sleeve gastrectomy HOME MEDICATIONS: Previous Rx's Medication Instructions Recorded Ergocalciferol [Vitamin D2 50,000 unit PO Q7D #12 cap 01/14/19 (DRISDOL)] ALLERGIES: None. SOCIAL HISTORY: No active tobacco use. She is a past tobacco user. FAMILY HISTORY: Denies any DVTs, pulmonary embolisms in her family. Denies any ulcerative colitis disease or Crohn's. She does have a family history of morbid obesity. He strong family history of esophageal dysmotility including gastroesophageal reflux disease. Also has a family history of gallbladder disorder. REVIEW OF ORGAN SYSTEMS: CONSTITUTIONAL: At her height of 5 foot 4.25, her ideal body weight is 144 pounds. Her highest weight was 331 pounds. Her body mass index, 56.5. HEENT: Denies any active troubles with vision or hearing. ENDOCRINE: No reports of hypothyroidism. Has insulin resistance with diabetes, now resolved. CARDIOVASCULAR: No reports of palpitations or heart attacks or chest pain. RESPIRATORY: Has daytime somnolence including snoring, suspicious for sleep apnea, now resolved. No recent asthma. GI: Denies any bright red blood per rectum, diarrhea or constipation. Has intermittent heartburn. MUSCULOSKELETAL: Describes generalized muscle aches, including lower back pain or joint pain, improved. NEURO: No reports of headaches or seizure disorders. PSYCH: Has depression. Recent suicidal ideation. HEMATOLOGIC: Denies any abnormal bleeding or bruising. SKIN: Has panniculitis. No skin cancer. PHYSICAL EXAM: VITAL SIGNS: Height 5 foot 4.25 inches, weight 194 pounds. BMI 32.5 Vital Signs Temp 97.8 F 05/06/19 13:58 Pulse 79 05/06/19 13:58 Resp BP 151/92 05/06/19 13:58 Pulse Ox GENERAL: Well-developed female in no acute distress. HEENT: No scleral icterus. Extraocular was grossly intact. No nasal drainage. NECK: Supple without lymphadenopathy. CHEST: Nonlabored respirations with equal bilateral excursions. CARDIOVASCULAR: Regular rate. Distal 2+ pulses. ABDOMEN: Hyperemia of pannus. Pannus weight of 15 pounds. Soft, nontender. MUSCULOSKELETAL: No clubbing, cyanosis, or edema. NEURO: No focal or lateralizing signs. Cranial nerves 2 through 12 grossly within normal limits. PSYCH: Appropriate affect. Alert and oriented to person, place and time. SKIN: Well perfused. Good skin turgor. ASSESSMENT: 1. Morbid obesity due to excess calories. 2. Body mass index of 56.5 to 32.5 3. Diabetes type 2, improved. 4. Obstructive sleep apnea. 5. Depression. 6. Osteoarthritis of the bilateral hips. 7. Osteoarthritis of the bilateral knees. 8. Gastroesophageal reflux disease. 9. Dietary surveillance and counseling. 10. Hypertension. 11. Vitamin D deficiency. 12. Hypercholesterolemia. 13. Status post sleeve gastrectomy. 14. Panniculitis. PLAN: 1. Recommend panniculectomy for chronic panniculitis with concomittant severe lower back pain and uncontrolled symptoms despite systemic and local treatment including limitation of activities of daily living. Anticipated resection of 10 pounds described. Panniculectomy should correct her functional deficits. Informed consent obtained. 2. Recommend 2 week protein diet for optimal recovery 3. Risks of bleeding, needs for drains, flap failure, infection, need for further surgery were described. She is high risk for adrianne-operative complications with anticipated 10+ skin resection. 4. Inpatient hospitalization also described 5. DVT prophylaxis. 6. Antibiotic prophylaxis 7. She comes in and understands the benefits and risks of panniculectomy.
[2019-05-06 14:04] VITALS: BP 151/92; PULSE 79; TEMP 97.8; BMI 32.5
== END | disposition home or self-care (01) ==
LOC: BARWHC3 12:59
PROVIDERS: ATTEND Surgery Plastic and Reconstructive Surgery
DX: E66.01 Morbid (severe) obesity due to excess calories (principal); Z68.32 Body mass index [BMI] 32.0-32.9, adult; Z98.890 Other specified postprocedural states
CPT/HCPCS: 99211

== ENCOUNTER → 2019-07-17 | Outpatient (CLI) | payer OTHER ==
[2019-07-17 09:56] LABS: Basophils # (A) 0.1 k/uL (0-0.2); Basophils % (A) 1 %; Eosinophils # (A) 0.2 k/uL (0-0.7); Eosinophils % (A) 4 %; HCT 43.7 % (34.0-46.0); HGB 14.7 gm/dL (11.4-16.0); Lymphocytes # (A) 1.7 k/uL (1.0-4.8); Lymphocytes % (A) 32 %; MCH 33.5 pg (25.0-35.0); MCHC 33.6 g/dL (31.0-37.0); MCV 99.6 fL (80.0-100.0); Mean Platelet Volume 8.4; Monocytes # (A) 0.4 k/uL (0-1.0); Monocytes % (A) 8 %; Neutrophils # (A) 2.8 k/uL (1.3-7.7); Neutrophils % (A) 53 %; Platelet Count 227 k/uL (150-450); RBC 4.39 m/uL (3.80-5.40); RDW 12.6 % (11.5-15.5); WBC 5.3 k/uL (3.8-10.6)
[2019-07-17 10:24] LABS: ALT 14 U/L (4-34); AST 22 U/L (14-36); African American GFR (CKD) >90 (>60 ml/min/1.73 sqM); Albumin 4.1 g/dL (3.5-5.0); Alkaline Phosphatase 45 U/L (38-126); Anion Gap 7 mmol/L; Blood Urea Nitrogen 22 mg/dL (7-17); Calcium 9.9 mg/dL (8.4-10.2); Carbon Dioxide 27 mmol/L (22-30); Chloride 105 mmol/L (98-107); Glucose 80 mg/dL (74-99); Non-African American GFR(CKD) 82 (>60 ml/min/1.73 sqM); Potassium 4.1 mmol/L (3.5-5.1); Sodium 139 mmol/L (137-145); Total Bilirubin 0.6 mg/dL (0.2-1.3); Total Protein 7.1 g/dL (6.3-8.2)
== END | disposition home or self-care (01) ==
LOC: LABPAT 08:25
PROVIDERS: ATTEND Surgery Plastic and Reconstructive Surgery
DX: Z01.818 Encounter for other preprocedural examination (principal); Z11.59 Encounter for screening for other viral diseases
CPT/HCPCS: 80053; 85025; 36415; U0003

== ENCOUNTER 2019-07-20 08:39 | Inpatient (IN) | payer OTHER ==
[2019-07-15 12:45] VITALS: BMI 34.1
--- NOTE | 2019-07-18 18:28 | P.GSHP ---
History of Present Illness H&P Date: 07/20/19 DATE OF SERVICE: 07/20/2019 CHIEF COMPLAINT: Panniculitis HISTORY OF PRESENT ILLNESS: The patient is a 49-year-old female who is status post robotic-assisted laparoscopic sleeve gastrectomy on 10/29/2016. She is almost 3 years out. She comes in with medical refractory panniculitis. She has long standing history of panniculitis for over 3 years. She reports painful skin ulcerations and breakdown along her pannus despite medical treatments and prescriptions. She has been using prescription strength Nystatin powder without improvement. She has pulling sensation along her lower back from her pannus. She has troubles with grooming and hygiene as a result of her pannus. Her pannus interferes with her activities of daily living including dressing, bathing, and hygiene. She presents for panniculectomy. At her height of 5 foot 4.25, her ideal body weight is 144 pounds. Her highest weight was 331 pounds. Her body mass index is reduced from 56.5 down to 32.5. She comes in 194 pounds. She has lost 137 pounds, lifetime. Percent excess weight loss is 73 %, lifetime. PAST MEDICAL HISTORY: 1. Diabetes type 2, now resolved 2. Depression. 3. Morbid obesity due to excess calories, initial 56.5 4. Osteoarthritis of the bilateral hips. 5. Osteoarthritis of the bilateral knees. 6. Gallstones 7. Gastroesophageal reflux disease. 8. Body mass index, 56.5, initial PAST SURGICAL HISTORY: 1. Upper endoscopy. 2. Tubal ligation. 3. Sleeve gastrectomy HOME MEDICATIONS: Previous Rx's Medication Instructions Recorded Ergocalciferol [Vitamin D2 50,000 unit PO Q7D #12 cap 01/14/19 (DRISDOL)] ALLERGIES: None. SOCIAL HISTORY: No active tobacco use. She is a past tobacco user. FAMILY HISTORY: Denies any DVTs, pulmonary embolisms in her family. Denies any ulcerative colitis disease or Crohn's. She does have a family history of morbid obesity. He strong family history of esophageal dysmotility including gastroesophageal reflux disease. Also has a family history of gallbladder disorder. REVIEW OF ORGAN SYSTEMS: CONSTITUTIONAL: At her height of 5 foot 4.25, her ideal body weight is 144 pounds. Her highest weight was 331 pounds. Her body mass index, 56.5. HEENT: Denies any active troubles with vision or hearing. ENDOCRINE: No reports of hypothyroidism. Has insulin resistance with diabetes, now resolved. CARDIOVASCULAR: No reports of palpitations or heart attacks or chest pain. RESPIRATORY: Has daytime somnolence including snoring, suspicious for sleep apnea, now resolved. No recent asthma. GI: Denies any bright red blood per rectum, diarrhea or constipation. Has intermittent heartburn. MUSCULOSKELETAL: Describes generalized muscle aches, including lower back pain or joint pain, improved. NEURO: No reports of headaches or seizure disorders. PSYCH: Has depression. Recent suicidal ideation. HEMATOLOGIC: Denies any abnormal bleeding or bruising. SKIN: Has panniculitis. No skin cancer. PHYSICAL EXAM: VITAL SIGNS: Height 5 foot 4.25 inches, weight 194 pounds. BMI 32.5 GENERAL: Well-developed female in no acute distress. HEENT: No scleral icterus. Extraocular was grossly intact. No nasal drainage. NECK: Supple without lymphadenopathy. CHEST: Nonlabored respirations with equal bilateral excursions. CARDIOVASCULAR: Regular rate. Distal 2+ pulses. ABDOMEN: Hyperemia of pannus. Pannus weight of 15 pounds. Soft, nontender. MUSCULOSKELETAL: No clubbing, cyanosis, or edema. NEURO: No focal or lateralizing signs. Cranial nerves 2 through 12 grossly within normal limits. PSYCH: Appropriate affect. Alert and oriented to person, place and time. SKIN: Well perfused. Good skin turgor. ASSESSMENT: 1. Morbid obesity due to excess calories. 2. Body mass index of 56.5 to 32.5 3. Diabetes type 2, improved. 4. Obstructive sleep apnea. 5. Depression. 6. Osteoarthritis of the bilateral hips. 7. Osteoarthritis of the bilateral knees. 8. Gastroesophageal reflux disease. 9. Dietary surveillance and counseling. 10. Hypertension. 11. Vitamin D deficiency. 12. Hypercholesterolemia. 13. Status post sleeve gastrectomy. 14. Panniculitis. PLAN: 1. Recommend panniculectomy for chronic panniculitis with concomittant severe lower back pain and uncontrolled symptoms despite systemic and local treatment including limitation of activities of daily living. Anticipated resection of 10 pounds described. Panniculectomy should correct her functional deficits. Informed consent obtained. 2. Recommend 2 week protein diet for optimal recovery 3. Risks of bleeding, needs for drains, flap failure, infection, need for further surgery were described. She is high risk for adrianne-operative complications with anticipated 10+ skin resection. 4. Inpatient hospitalization also described 5. DVT prophylaxis. 6. Antibiotic prophylaxis 7. She comes in and understands the benefits and risks of panniculectomy. Past Medical History Past Medical History: No Reported History Additional Past Medical History / Comment(s): joint pain History of Any Multi-Drug Resistant Organisms: None Reported Past Surgical History: Bariatric Surgery, Cholecystectomy, Orthopedic Surgery, Tubal Ligation Additional Past Surgical History / Comment(s): EGD, right thumb surg, Vertical sleeve gastrectomy 10-29-16 Past Anesthesia/Blood Transfusion Reactions: No Reported Reaction Smoking Status: Never smoker - Past Family History Father Family Medical History: Cancer, Congestive Heart Failure (CHF), COPD, Diabetes Mellitus Mother Family Medical History: Diabetes Mellitus Medications and Allergies Home Medications Medication Instructions Recorded Confirmed Type Ergocalciferol [Vitamin D2 50,000 unit PO Q7D #12 cap 01/14/19 05/06/19 Rx (DRISDOL)] Allergies Allergy/AdvReac Type Severity Reaction Status Date / Time No Known Allergies Allergy Verified 07/15/19 12:18
[~2019-07-20 08:39] MED LIST changes: -ACETAMINOPHEN IV (For NPO) 1,000 MG in EMPTY BAG 1 BAG IVPB ONE; -CHLORHEXIDINE GLUCONATE 15 ML CUP MUCOUS MEM ONE; -ENOXAPARIN 40 MG/0.4 ML SYRINGE SQ STA; +HEPARIN SODIUM,PORCINE 5,000 UNIT/ML 1 ML VIAL SQ ONE; -HYDROmorphone 1 MG/ML 1 ML SYRINGE IVP PRN; -PANTOPRAZOLE 40 MG/10 ML VIAL IV STA; -SCOPOLAMINE 1.5MG/72HR PATCH TRANSDERM STA; -ceFAZolin 3 GM in SODIUM CHLORIDE 0.9% 100 ML IVPB ONE; -fentaNYL (PF) 50 MCG/ML 2 ML AMP IV PRN
[2019-07-20] MEDS: GABAPENTIN 300 MG CAP PO STA ×2 (09:18→16:47)
[2019-07-20] MEDS: LACTATED RINGERS 1,000 ML IV SCH (09:18)
[2019-07-20] MEDS: ACETAMINOPHEN TAB 500 MG TAB PO STA ×2 (09:18→16:46)
[2019-07-20] MEDS: ONDANSETRON 4 MG/2 ML VIAL IVP ONE ×2 (09:22→16:47)
[2019-07-20] MEDS: DEXAMETHASONE SOD PHOSPHATE 10 MG/ML 1 ML VIAL IV ONE ×2 (09:22→16:47)
[2019-07-20] MEDS: HEPARIN SODIUM,PORCINE 5,000 UNIT/ML 1 ML VIAL SQ ONE ×2 (09:23→16:47)
[2019-07-20] MEDS ORDERED: KETAMINE 10 MG/ML 20 ML VIAL ONE (11:14)
[2019-07-20] MEDS ORDERED: MIDAZOLAM 2 MG/2 ML VIAL ONE (11:14)
[2019-07-20] MEDS ORDERED: HYDROmorphone (PF) 1 MG/ML ONE (11:14)
[2019-07-20] MEDS ORDERED: GLYCOPYRROLATE 0.2 MG/ML 2 ML VIAL ONE (11:14)
[2019-07-20] MEDS ORDERED: SUCCINYLCHOLINE CHLORIDE 100 MG/5 ML SYR IV ONE (11:14)
[2019-07-20] MEDS ORDERED: fentaNYL (PF) 50 MCG/ML 2 ML AMP ONE (11:14)
[2019-07-20] MEDS ORDERED: PROPOFOL 10 MG/ML 20 ML VIAL IV ONE (11:14)
[2019-07-20] MEDS ORDERED: LIDOCAINE 1% INJ 10MG/ML (20 ML MDV) ONE (11:14)
[2019-07-20] MEDS ORDERED: ROCURONIUM BROMIDE 10 MG/ML 5 ML VIAL IV ONE (11:14)
[2019-07-20] MEDS ORDERED: NEOSTIGMINE 1 MG/ML 10 ML VIAL ONE (11:14)
[2019-07-20] MEDS: HYDROmorphone 0.5 MG/0.5 ML SYRINGE IVP PRN ×4 (14:37→16:00)
[2019-07-20] MEDS ORDERED: HYDROmorphone 1 MG/ML 1 ML SYRINGE IVP PRN (15:08)
[2019-07-20] MEDS ORDERED: HYDROcodone/APAP 5-325MG 1 EACH TAB PO PRN (15:08)
[2019-07-20] MEDS ORDERED: NALOXONE 0.4 MG/ML 1 ML VIAL IV PRN (15:08)
[2019-07-20] MEDS ORDERED: ONDANSETRON 4 MG/2 ML VIAL IVP PRN (15:08)
[2019-07-20] MEDS ORDERED: TRIMETHOBENZAMIDE 100 MG/ML 2 ML VIAL IM PRN (15:08)
[2019-07-20] MEDS ORDERED: METOCLOPRAMIDE 5 MG/ML 2 ML VIAL IVP PRN (15:08)
--- NOTE | 2019-07-20 15:12 | P.HPADDEND ---
H&P Addendum H&P Addendum Date: 07/20/19 Benefits and risks panniculectomy described. Postoperative care including drain management was reviewed.
--- NOTE | 2019-07-20 15:18 | P.OP ---
Date of Procedure: 07/20/19 Description of Procedure: SURGEON: GILA GORDON MD PREOPERATIVE DIAGNOSES: 1. Panniculitis, abdomen 2. Central adiposity 3. Panniculus adiposis 4. Morbid obesity due to excess calories. 5. Body mass index of 56.5 to 34.1 6. Depression. 7. Osteoarthritis of the bilateral hips. 8. Osteoarthritis of the bilateral knees. 9. Gastroesophageal reflux disease. 10. Dietary surveillance and counseling. 11. Hypertension. 12. Vitamin D deficiency. 13. Hypercholesterolemia. 14. Status post sleeve gastrectomy. POSTOPERATIVE DIAGNOSES: 1. Panniculitis, abdomen 2. Central adiposity 3. Panniculus adiposis 4. Morbid obesity due to excess calories. 5. Body mass index of 56.5 to 34.1 6. Depression. 7. Osteoarthritis of the bilateral hips. 8. Osteoarthritis of the bilateral knees. 9. Gastroesophageal reflux disease. 10. Dietary surveillance and counseling. 11. Hypertension. 12. Vitamin D deficiency. 13. Hypercholesterolemia. 14. Status post sleeve gastrectomy. OPERATION: 1. Panniculectomy, 9.8 pounds. ANESTHESIA: General ESTIMATED BLOOD LOSS: 200 mL SPECIMENS REMOVED: Pannus 9.8 pounds. COMPLICATIONS: None. CONDITION: Stable. DRAINS: Two #19 Harvey drains below abdominal flap extending through the pubis. OPERATIVE FINDINGS: 1. Pannus weighing 9.8 pounds, excised. INDICATIONS: The patient is a 49-year-old female who is status post robotic- assisted laparoscopic sleeve gastrectomy on 10/29/2016. She is almost 3 years out. She comes in with medical refractory panniculitis. She has long standing history of panniculitis for over 3 years. She reports painful skin ulcerations and breakdown along her pannus despite medical treatments and prescriptions. She has been using prescription strength Nystatin powder without improvement. She has pulling sensation along her lower back from her pannus. She has troubles with grooming and hygiene as a result of her pannus. Her pannus interferes with her activities of daily living including dressing, bathing, and hygiene. She presents for panniculectomy. At her height of 5 foot 4.25, her ideal body weight is 144 pounds. Her highest weight was 331 pounds. Her body mass index is reduced from 56.5 down to 32.5. She comes in 194 pounds. She has lost 137 pounds, lifetime. Percent excess weight loss is 73 %, lifetime. Given her clinical symptoms, including massive weight loss, she elected for surgical intervention with a panniculectomy. Benefits and risks of the procedure including bleeding, infection, risk of flap failure, abdominal wall seromas, chronic pain were described at length. Informed consent was obtained. DESCRIPTION: In the preanesthesia care unit the patient was marked with an indelible marker. She had also been given heparin subcutaneously. The patient was brought into the operating room and laid in supine position. After general induction, a Meyer catheter was placed. The abdomen was then prepped and draped in standard sterile fashion using ChloraPrep. The skin was prepped as far laterally to the back, inferiorly to the upper thighs and superiorly to above the bilateral breasts. A timeout protocol was confirmed with the surgical team regarding patient's name, procedure to be performed, including preoperative medications. She had received Ancef 2 grams IV antibiotics. Once the time-out protocol was confirmed with the surgical team, the patient was re-marked with indelible marker whereby the midline of the xiphoid to the mons pubis was marked. The anterior/superior iliac spine along the bilateral hips was also marked. Approximately 8 cm above the pubis commissure a transverse incision was made for the inferior portion of the flap. Using a #10 blade, the incision was taken from the midline laterally to above the anterior/superior iliac spine, initially on the left side of the patient and then on the right side of the patient. Electro-Bovie cautery was used to control for hemostasis. The dissection was taken down to the level of the fascia. Landmarks used were the xiphoid process as well as the bilateral costal margins for the superior margin. Care was taken to avoid any creation of dog ears during the dissection. Hemostasis was once again checked with electro-Bovie cautery and all defects were addressed. Attention was now brought to closure of the flap. Using stainless steel skin jarvis, the midline was once again marked of the upper flap as well as the pubic commissure. The patient was placed in a flexed position of approximately 20 degrees at the hips. The pannus was extended inferiorly to the feet. The upper flap was created once the excess skin was excised. Again care was taken to avoid any dog ears along the lateral aspect of the incisions. Once excised, the pannus was weighed at 9.8 pounds. The upper and lower flaps were reapproximated at the midline and then laterally to the skin with skin jarvis. Once reapproximated, the skin was closed in layers using 0 Vicryl for the superficial fascial system followed by running 3-0 Monocryl for the deep dermis in a running subcuticular fashion. Prior to skin closure, two round #19 Harvey drains were placed underneath the flap and brought out just inferior to the incision along the pubis. Drain stitch using 2-0 nylon was placed. Once the incision was closed, bulb suction was attached. Hemostasis was checked. At the end of the procedure, the needle, sponge and instrument count was verified correct. Exofin tape was placed along the length of the incision. Optifoam dressings were applied over the incision and used as a drain sponge. The patient was then transferred to a hospital bed in a beach chair position. An abdominal binder was placed and marked. The patient was taken to the postanesthesia care unit in stable condition, awake and extubated. Total time for procedure from skin to skin was 135 minutes. The intraoperative findings were discussed with her parents who was pleased with the level of care.
[2019-07-20] MEDS: KETOROLAC 30 MG/ML 1 ML VIAL IVP SCH ×2 (16:36→20:10)
[2019-07-20] MEDS: SODIUM CHLORIDE 0.9% 1,000 ML IV SCH (16:49)
[2019-07-20] MEDS: GABAPENTIN 300 MG CAP PO SCH ×2 (16:51→20:10)
[2019-07-21] MEDS: KETOROLAC 30 MG/ML 1 ML VIAL IVP SCH ×4 (03:38→20:35)
[2019-07-21] MEDS: SODIUM CHLORIDE 0.9% 1,000 ML IV SCH ×2 (04:54→19:40)
[2019-07-21] MEDS: ENOXAPARIN 30 MG/0.3 ML SYRINGE SQ SCH (08:39)
[2019-07-21] MEDS: GABAPENTIN 300 MG CAP PO SCH ×3 (08:40→21:20)
--- NOTE | 2019-07-21 11:21 | P.DS ---
<La Perez - Last Filed: 07/21/19 11:19> Providers Expected date of discharge: 07/21/19 Hospital Course: 49-year-old female who underwent panniculectomy with removal of 9.[address] Nunez on 07/20/2019. Patient is doing well postoperatively without any immediate complications. Pain is controlled on oral medications. Vital signs are stable. She is stable for discharge home today. Please see EMR for further hospital course details. Discharge Diagnosis 1. Panniculitis, abdomen 2. Central adiposity 3. Panniculus adiposis 4. Morbid obesity due to excess calories. 5. Body mass index of 56.5 to 34.1 6. Depression. 7. Osteoarthritis of the bilateral hips. 8. Osteoarthritis of the bilateral knees. 9. Gastroesophageal reflux disease. 10. Dietary surveillance and counseling. 11. Hypertension. 12. Vitamin D deficiency. 13. Hypercholesterolemia. 14. Status post sleeve gastrectomy. Nurse practitioner note has been reviewed by physician. Signing provider agrees with the documented findings, assessment, and plan of care. Patient Condition at Discharge: Stable Plan - Discharge Summary Discharge Rx Participant: No New Discharge Prescriptions: New Hydrocodone/Acetaminophen [Clare 5-325] 1 tab PO Q6HR PRN 3 Days #12 tab PRN Reason: Pain Ibuprofen [Motrin] 600 mg PO Q8HR PRN #30 tab PRN Reason: Pain Acetaminophen Tab [Tylenol Tab] 650 mg PO Q4H PRN #30 tablet PRN Reason: Pain No Action Ergocalciferol [Vitamin D2 (DRISDOL)] 50,000 unit PO Q7D #12 cap Discharge Medication List Ergocalciferol [Vitamin D2 (DRISDOL)] 50,000 unit PO Q7D #12 cap 01/14/19 [Rx] Acetaminophen Tab [Tylenol Tab] 650 mg PO Q4H PRN #30 tablet 07/21/19 [Rx] Hydrocodone/Acetaminophen [Clare 5-325] 1 tab PO Q6HR PRN 3 Days #12 tab 07/21/19 [Rx] Ibuprofen [Motrin] 600 mg PO Q8HR PRN #30 tab 07/21/19 [Rx] [facility]Ref[place] [facility] [place] [place] [facility] [place] 10:00 am Activity/Diet/Wound Care/Special Instructions: No driving while taking Clare No lifting over 4 pounds for 4 weeks (Until August 19, 2019) No showers. You may sponge bath Empty CORRINE drains 2-3 times per day and as needed Do not remove abdominal binder Very light activity until you are reevaluated at your follow up appointment with your surgeon <Mandi Nunez - Last Filed: 07/21/19 20:18> Providers Date of admission: 07/20/19 08:39 Attending physician: Mandi Nunez Primary care physician: Tarsha Cage - Discharge Diagnosis(es) (1) Panniculitis Current Visit: Yes Status: Acute (2) Central adiposity Current Visit: Yes Status: Acute (3) History of sleeve gastrectomy Current Visit: Yes Status: Acute Hospital Course: Patient seen and evaluated with nurse practitioner. Agree with above. Patient is unable to void. Discharge held secondary to urinary retention.
[2019-07-21] MEDS: ACETAMINOPHEN TAB 325 MG TAB PO PRN (11:46)
[2019-07-21] MEDS ORDERED: TAMSULOSIN 0.4 MG CAP.ER.24H PO STA (15:21)
[2019-07-21] MEDS: LACTATED RINGERS 1,000 ML IV SCH (16:13)
[2019-07-22] MEDS: KETOROLAC 30 MG/ML 1 ML VIAL IVP SCH ×2 (03:46→10:36)
[2019-07-22] MEDS: ENOXAPARIN 30 MG/0.3 ML SYRINGE SQ SCH (07:16)
[2019-07-22] MEDS: GABAPENTIN 300 MG CAP PO SCH ×2 (07:17→15:24)
[2019-07-22 07:55] LABS: African American GFR (CKD) >90 (>60 ml/min/1.73 sqM); Anion Gap 3 mmol/L; Blood Urea Nitrogen 14 mg/dL (7-17); Calcium 8.1 mg/dL (8.4-10.2); Carbon Dioxide 27 mmol/L (22-30); Chloride 108 mmol/L (98-107); Glucose 96 mg/dL (74-99); Non-African American GFR(CKD) >90 (>60 ml/min/1.73 sqM); Sodium 138 mmol/L (137-145)
[2019-07-22 07:56] LABS: Basophils % (A) 1 %; Eosinophils # (A) 0.2 k/uL (0-0.7); Eosinophils % (A) 3 %; HCT 29.5 % (34.0-46.0); Lymphocytes # (A) 1.7 k/uL (1.0-4.8); Lymphocytes % (A) 27 %; MCH 33.6 pg (25.0-35.0); MCHC 32.6 g/dL (31.0-37.0); MCV 102.9 fL (80.0-100.0); Macrocytosis Slight; Mean Platelet Volume 8.3; Monocytes # (A) 0.5 k/uL (0-1.0); Monocytes % (A) 9 %; Neutrophils # (A) 3.7 k/uL (1.3-7.7); Neutrophils % (A) 59 %; Platelet Count 167 k/uL (150-450); RBC 2.87 m/uL (3.80-5.40); RDW 12.8 % (11.5-15.5); WBC 6.3 k/uL (3.8-10.6)
[2019-07-22 08:16] LABS: HGB 9.6 gm/dL (11.4-16.0)
[2019-07-22] MEDS ORDERED: TAMSULOSIN 0.4 MG CAP.ER.24H PO SCH (08:30)
[2019-07-22] MEDS ORDERED: SODIUM CHLORIDE 0.9% 1,000 ML IV ONE (10:17)
--- NOTE | 2019-07-22 10:25 | P.PN ---
<La Perez - Last Filed: 07/22/19 10:21> Subjective Progress Note Date: 07/22/19 CHIEF COMPLAINT: Panniculitis HISTORY OF PRESENT ILLNESS: Patient examined this point the bedside. Patient's discharge was held yesterday secondary to urinary retention. Patient was started on Flomax. Patient was able to void yesterday around 2100. However she was unable to void since then and required straight cath this morning at 0500 for 300 mL. Patient states she has not drinking much fluids. IV fluids are infusing at 75 mL an hour. Patient got up to go to the bathroom and was able to void this morning. However patient became dizzy and fell in the bathroom. She did not sustain any injuries. Blood pressures in the 90s. Hemoglobin 9.6, down from 14.7 preoperatively. Nursing reports 50 and 70 mL from her CORRINE drains overnight PHYSICAL EXAM: VITAL SIGNS: Reviewed GENERAL: Well-developed in no acute distress. HEENT: No sclera icterus. Extraocular movements grossly intact. Moist buccal mucosa. Head is atraumatic, normocephalic. Hears conversational speech. No nasal drainage. NECK: Supple without lymphadenopathy. CHEST: Non-labored respirations and equal bilateral excursions. CARDIOVASCULAR: Regular rate with regular rhythm. Palpable 2+ radial pulses. ABDOMEN: Soft. Nondistended. Abdominal binder noted. CORRINE drains x 2 with serosanguineous drainage MUSCULOSKELETAL: No clubbing or cyanosis. NEUROLOGIC: No focal or lateralizing signs. Cranial nerves II through XII grossly intact. PSYCH: Appropriate affect. Alert and oriented to person, place and time. SKIN: Well perfused. Good skin turgor. ASSESSMENT: 1. Panniculitis, abdomen 2. Central adiposity 3. Panniculus adiposis 4. Morbid obesity due to excess calories. 5. Body mass index of 56.5 to 34.1 6. Depression. 7. Osteoarthritis of the bilateral hips. 8. Osteoarthritis of the bilateral knees. 9. Gastroesophageal reflux disease. 10. Dietary surveillance and counseling. 11. Hypertension. 12. Vitamin D deficiency. 13. Hypercholesterolemia. 14. Status post sleeve gastrectomy 15. Acute blood loss anemia, secondary to surgery, an expected outcome 16. Urinary retention PLAN: -Continue diet as tolerated -Pain control -Continue Flomax -Monitor hemoglobin -Monitor blood pressure -Increase IV fluids to 125 mL an hour -2 L normal saline bolus -IV iron 1 dose today Nurse practitioner note has been reviewed by physician. Signing provider agrees with the documented findings, assessment, and plan of care. Objective - Vital Signs Vital signs: Vital Signs Temp 97.8 F 07/22/19 09:25 Pulse 76 07/22/19 09:25 Resp 16 07/22/19 09:25 BP 95/67 07/22/19 09:25 Pulse Ox 100 07/22/19 09:25 Intake & Output 07/21/19 07/22/19 07/22/19 18:59 06:59 18:59 Intake Total 525 937.5 Output Total 590 760 250 Balance -65 177.5 -250 Intake: Intake, IV Titration 525 937.5 Amount Sodium Chloride 0.9% 1, 525 937.5 000 ml @ 75 mls/hr IV . [id number] [facility] Rx#:[id number] Output: Drainage 140 160 Left Lower Abdomen 130 100 Right Lower Abdomen 10 60 Urine 450 600 250 Straight 300 Uretheral (Meyer) 100 Other: Voiding Method Toilet Toilet Toilet # Voids 1 - Labs CBC & Chem 7: 07/22/19 07:08 07/22/19 07:08 Labs: Abnormal Lab Results - Last 24 Hours (Table) 07/22/19 07/22/19 Range/Units 07:08 07:08 RBC 2.87 L (3.80-5.40) m/uL Hgb 9.6 L D (11.4-16.0) gm/dL Hct 29.5 L (34.0-46.0) % MCV 102.9 H (80.0-100.0) fL Chloride 108 H (98-107) mmol/L Calcium 8.1 L (8.4-10.2) mg/dL <Mandi Nunez - Last Filed: 07/22/19 18:32> Subjective Patient seen and evaluated with nurse practitioner. Agree with above. At bedside, I stripped her CORRINE change which is sanguinous more than serous. No reports of abdominal pain. Abdominal binder was taken down without signs of cellulitis or flap failure. Abdominal binder was repositioned. Patient presents with dehydration and recommended 2 liter IV fluid bolus. After 2 L fluid bolus, patient reported doing well. She is able to void spontaneously. Patient is stable for discharge. Follow-up in the bariatric center in 48-72 hours. Objective - Vital Signs Vital signs: Vital Signs Temp 97.7 F 07/22/19 15:00 Pulse 78 07/22/19 15:00 Resp 17 07/22/19 15:00 BP 124/56 07/22/19 15:00 Pulse Ox 98 07/22/19 15:00 Intake & Output 07/21/19 07/22/19 07/22/19 18:59 06:59 18:59 Intake Total 525 937.5 Output Total 590 760 305 Balance -65 177.5 -305 Intake: Intake, IV Titration 525 937.5 Amount Sodium Chloride 0.9% 1, 525 937.5 000 ml @ 125 mls/hr IV . Q8H [facility] Rx#:[id number] Output: Drainage 140 160 55 Left Lower Abdomen 130 100 30 Right Lower Abdomen 10 60 25 Urine 450 600 250 Straight 300 Uretheral (Meyer) 100 Other: Voiding Method Toilet Toilet Toilet # Voids 1 2 - Labs CBC & Chem 7: 07/22/19 07:08 07/22/19 07:08 Labs: Abnormal Lab Results - Last 24 Hours (Table) 07/22/19 07/22/19 Range/Units 07:08 07:08 RBC 2.87 L (3.80-5.40) m/uL Hgb 9.6 L D (11.4-16.0) gm/dL Hct 29.5 L (34.0-46.0) % MCV 102.9 H (80.0-100.0) fL Chloride 108 H (98-107) mmol/L Calcium 8.1 L (8.4-10.2) mg/dL Assessment and Plan (1) Panniculitis Status: Acute Code(s): M79.3 - PANNICULITIS, UNSPECIFIED SNOMED Code(s): 08850291 (2) Central adiposity Status: Acute Code(s): E65 - LOCALIZED ADIPOSITY SNOMED Code(s): 328858324 (3) History of sleeve gastrectomy Status: Acute Code(s): Z90.3 - ACQUIRED ABSENCE OF STOMACH [PART OF] SNOMED Code(s): 478099549639964
[2019-07-22] MEDS: SODIUM CHLORIDE 0.9% 1,000 ML IV SCH ×2 (10:38→10:39)
[2019-07-22] MEDS ORDERED: SODIUM FERRIC GLUCONAT-SUCROSE 125 MG in SODIUM CHLORIDE 0.9% 100 ML IVPB ONE (10:45)
[2019-07-22] MEDS: ACETAMINOPHEN TAB 325 MG TAB PO PRN (11:55)
[2019-07-22 16:15] VITALS: BP 124/56; PULSE 78; RESP 17; TEMP 97.7
--- NOTE | 2019-07-24 13:40 | CDI ---
Documentation Clarification Form Date: 07/24/19 From: Diamante Seay Phone: If you have a question about this query, please contact Suzette Bronson, [employer] at [phone] between 8am and 5pm. Admit Date: 07/20/19 Discharge Date: 07/22/19 Patient Name: MOLLY XIONG Visit Number: [id number] ATTENTION: The Clinical Documentation Specialists (CDI) and [facility] Coding Staff appreciate your assistance in clarifying documentation. Please respond to the clarification below the line at the bottom and electronically sign. The CDI & [facility] Coding staff will review the response and follow-up if needed. Please note: Queries are made part of the Legal Health Record. If you have any questions, please contact the author of this message via ITS. Dear Dr. Mandi Nunez, A 49 year old female had a panniculectomy on 07/19. She developed urinary retention on 07/20 per your 08/10 progress note. Patients Admitting Diagnosis: Panniculitis, abdomen Post-Operative Diagnosis: Same Procedure performed: Panniculectomy History/Risk Factors: DM, HTN, morbid obesity w BMI 32.5, s/p sleeve gastrectomy, OA of bilateral hips & knees, MACARENA, hypercholesterolemia, vit D deficiency Clinical Indicators: Void around 2100 on 07/20 and has unable to void since then and required straight cath on 07/21 @ 0500 for 300mL. Treatment: Flomax, IV fluids at 75 mL an hour In order to accurately reflect this patients severity of illness, please clarify if the urinary retention is the result of the surgical procedure? Yes No Other, please specify Unable to determine Postop urinary retention following surgery 07/24/2019 15:11 MTDD
== END 2019-07-22 17:34 | disposition home or self-care (01) | DRG 571 ==
LOC: 2ORMAIN 08:39 → 4SSUR 15:28
PROVIDERS: ADMIT Surgery Plastic and Reconstructive Surgery; ATTEND Surgery Plastic and Reconstructive Surgery
PROC: 0JB80ZZ Excision of Abdomen Subcutaneous Tissue and Fascia, Open Approach (ICD-10-PCS; principal; 2019-07-20 11:20)
DX: M79.3 Panniculitis, unspecified (principal); D62 Acute posthemorrhagic anemia; E11.9 Type 2 diabetes mellitus without complications; E66.01 Morbid (severe) obesity due to excess calories; G47.33 Obstructive sleep apnea (adult) (pediatric); M54.5 Low back pain; I10 Essential (primary) hypertension; E55.9 Vitamin D deficiency, unspecified; E78.00 Pure hypercholesterolemia, unspecified; M16.0 Bilateral primary osteoarthritis of hip; M17.0 Bilateral primary osteoarthritis of knee; K21.9 Gastro-esophageal reflux disease without esophagitis; R33.9 Retention of urine, unspecified; Z68.32 Body mass index [BMI] 32.0-32.9, adult; Z79.899 Other long term (current) drug therapy; Z71.3 Dietary counseling and surveillance; Z87.891 Personal history of nicotine dependence; Z98.84 Bariatric surgery status; Z98.51 Tubal ligation status; Z90.3 Acquired absence of stomach [part of]; Z90.49 Acquired absence of other specified parts of digestive tract; Z86.59 Personal history of other mental and behavioral disorders; Z83.49 Family history of other endocrine, nutritional and metabolic diseases; Z83.79 Family history of other diseases of the digestive system; Z83.3 Family history of diabetes mellitus; Z82.5 Family history of asthma and other chronic lower respiratory diseases; Z82.49 Family history of ischemic heart disease and other diseases of the circulatory system
CPT/HCPCS: 80048; 85025

== ENCOUNTER → 2019-07-24 | Outpatient (CLI) | payer OTHER ==
[2019-07-24 10:35] VITALS: BP 132/85; PULSE 76; TEMP 98.1; BMI 33.7
--- NOTE | 2019-07-24 12:43 | P.PN ---
Subjective Progress Note Date: 07/24/19 DATE OF SERVICE: 07/24/2019 CHIEF COMPLAINT: Status post panniculectomy HISTORY OF PRESENT ILLNESS: The patient is a 49-year-old female who is status post robotic-assisted laparoscopic sleeve gastrectomy on 10/29/2016. She is 3 years out. She is status post panniculectomy 10 pounds, 07/20/2019, postop day 4. She reports adequate pain control. No pain along the incisions. Her blood pressure has been stable. At her height of 5 foot 4.25, her ideal body weight is 144 pounds. Her highest weight was 331 pounds. Her body mass index is reduced from 56.5 down to 34.2. She comes in 201 pounds from 194 pounds, 3 months ago. She has gained 7 pounds in 3 months. She has lost 130 pounds, lifetime. Percent excess weight loss is 70 %, lifetime. PHYSICAL EXAM: VITAL SIGNS: Height 5 foot 4.25 inches, weight 201 pounds. BMI 34.2 Vital Signs Temp 98.1 F 07/24/19 10:32 Pulse 76 07/24/19 10:32 Resp BP 132/85 07/24/19 10:32 Pulse Ox GENERAL: Well-developed female in no acute distress. HEENT: No scleral icterus. Extraocular was grossly intact. No nasal drainage. NECK: Supple without lymphadenopathy. CHEST: Nonlabored respirations with equal bilateral excursions. CARDIOVASCULAR: Regular rate. Distal 2+ pulses. ABDOMEN: CORRINE sanguinous. Minimal outputs. Dressings clean dry and intact. No infection. MUSCULOSKELETAL: No clubbing, cyanosis, or edema. NEURO: No focal or lateralizing signs. Cranial nerves 2 through 12 grossly within normal limits. PSYCH: Appropriate affect. Alert and oriented to person, place and time. SKIN: Well perfused. Good skin turgor. ASSESSMENT: 1. Morbid obesity due to excess calories. 2. Body mass index of 56.5 to 33.7 3. Diabetes type 2, improved. 4. Obstructive sleep apnea. 5. Depression. 6. Osteoarthritis of the bilateral hips. 7. Osteoarthritis of the bilateral knees. 8. Gastroesophageal reflux disease. 9. Dietary surveillance and counseling. 10. Hypertension. 11. Vitamin D deficiency. 12. Hypercholesterolemia. 13. Status post sleeve gastrectomy. 14. Panniculitis. 15. Status post panniculectomy, 10 pounds PLAN: 1. Dressing along the pubis was changed 2. Follow up in 5 days for dressing changes. Objective - Vital Signs Vital signs: Vital Signs Temp 98.1 F 07/24/19 10:32 Pulse 76 07/24/19 10:32 Resp BP 132/85 07/24/19 10:32 Pulse Ox Intake & Output 07/23/19 07/24/19 07/24/19 18:59 06:59 18:59 Weight 82.1 kg 91.172 kg
== END | disposition home or self-care (01) ==
LOC: BARWHC3 09:37
PROVIDERS: ATTEND Surgery Plastic and Reconstructive Surgery
DX: Z48.815 Encounter for surgical aftercare following surgery on the digestive system (principal); Z98.84 Bariatric surgery status; Z68.33 Body mass index [BMI] 33.0-33.9, adult; E11.9 Type 2 diabetes mellitus without complications; G47.33 Obstructive sleep apnea (adult) (pediatric); F32.9 Major depressive disorder, single episode, unspecified; M16.0 Bilateral primary osteoarthritis of hip; M17.0 Bilateral primary osteoarthritis of knee; K21.9 Gastro-esophageal reflux disease without esophagitis; Z71.3 Dietary counseling and surveillance; I10 Essential (primary) hypertension; E55.9 Vitamin D deficiency, unspecified; E78.00 Pure hypercholesterolemia, unspecified; M79.3 Panniculitis, unspecified; Z98.890 Other specified postprocedural states
CPT/HCPCS: 99212

== ENCOUNTER → 2019-07-29 | Outpatient (CLI) | payer OTHER ==
[~2019-07-29] MED LIST changes: -HEPARIN SODIUM,PORCINE 5,000 UNIT/ML 1 ML VIAL SQ ONE; +SODIUM CHLORIDE 0.9% 1,000 ML IV ONE
[2019-07-29 13:09] VITALS: RESP 16; BMI 32.8
--- NOTE | 2019-07-29 13:35 | P.PN ---
Subjective Progress Note Date: 07/29/19 She is 1 week out. No dizziness. She had diarrhea 2 days ago for 48 hrs, now resolved. No abdominal or incisional pain. She is having bowel movements. No fevers or chills. No weakness or dizziness. She also notes dark red coming from her CORRINE in the last 2 days. No moderate outputs. BP is low, systolic under 90s asymptomatic. External optifoam removed. Pressure jewel along midline, ecchymosis. Decreased sensation along the midline. No cellulitis or infection. PLAN: 1. CBC and iron panel with ferritin 2. CORRINE dressings changed at bedside 3. NO return to work with type of surgery performed 4. IV fluid hydration for hypotension 5. Will need iron infusion for low iron Objective - Vital Signs Vital signs: Vital Signs Temp 98.0 F 07/29/19 13:06 Pulse 79 07/29/19 13:06 Resp 16 07/29/19 13:06 BP 88/56 07/29/19 13:06 Pulse Ox Intake & Output 07/28/19 07/29/19 07/29/19 18:59 06:59 18:59 Weight 87.498 kg
[2019-07-29 13:51] VITALS: BP 101/69; PULSE 90; TEMP 98.5
[2019-07-29 14:17] LABS: Basophils % (A) 1 %; Eosinophils # (A) 0.2 k/uL (0-0.7); Eosinophils % (A) 3 %; HCT 33.1 % (34.0-46.0); HGB 10.5 gm/dL (11.4-16.0); Lymphocytes # (A) 1.5 k/uL (1.0-4.8); Lymphocytes % (A) 24 %; MCH 32.7 pg (25.0-35.0); MCHC 31.6 g/dL (31.0-37.0); MCV 103.4 fL (80.0-100.0); Macrocytosis Slight; Mean Platelet Volume 7.7; Monocytes # (A) 0.6 k/uL (0-1.0); Monocytes % (A) 9 %; Neutrophils # (A) 3.8 k/uL (1.3-7.7); Neutrophils % (A) 61 %; RDW 13.8 % (11.5-15.5); WBC 6.3 k/uL (3.8-10.6)
[2019-07-29 14:43] LABS: Platelet Count 361 k/uL (150-450)
[2019-07-30 04:37] LABS: % Iron Saturation 9.8 (12.00-45.00)
[2019-07-30 04:38] LABS: Ferritin 69.5 ng/mL (10.0-291.0)
== END | disposition home or self-care (01) ==
LOC: BARWHC3 12:39
PROVIDERS: ATTEND Surgery Plastic and Reconstructive Surgery
DX: E86.0 Dehydration (principal); D60.8 Other acquired pure red cell aplasias
CPT/HCPCS: 82728; 83540; 83550; 85025; 96360; 36415; G0463; 99212

== ENCOUNTER → 2019-08-05 | Outpatient (CLI) | payer OTHER ==
[2019-08-05 13:17] VITALS: BP 122/85; PULSE 73; RESP 16; TEMP 98.2; BMI 33.2
--- NOTE | 2019-08-05 14:17 | P.PN ---
Subjective Progress Note Date: 08/05/19 Bruising along abdomen improved. Has increased sensation. External tape discontinued. Drains are dark. Hypotension resolved. PLAN: 1. Follow up 1 week Objective - Vital Signs Vital signs: Vital Signs Temp 98.2 F 08/05/19 13:14 Pulse 73 08/05/19 13:14 Resp 16 08/05/19 13:14 BP 122/85 08/05/19 13:14 Pulse Ox Intake & Output 08/04/19 08/05/19 08/05/19 18:59 06:59 18:59 Weight 88.507 kg
== END | disposition home or self-care (01) ==
LOC: BARWHC3 12:40
PROVIDERS: ATTEND Surgery Plastic and Reconstructive Surgery
DX: S30.1XXA Contusion of abdominal wall, initial encounter (principal)
CPT/HCPCS: 99211

== ENCOUNTER → 2019-08-12 | Outpatient (CLI) | payer OTHER ==
[2019-08-12 13:39] VITALS: BP 138/80; PULSE 60; TEMP 97.8; BMI 32.9
--- NOTE | 2019-08-12 13:51 | P.PN ---
Subjective Progress Note Date: 08/12/19 DATE OF SERVICE: 08/12/2019 CHIEF COMPLAINT: Status post panniculectomy HISTORY OF PRESENT ILLNESS: The patient is a 49-year-old female who is status post robotic-assisted laparoscopic sleeve gastrectomy on 10/29/2016. She is 3 years out. She is status post panniculectomy 10 pounds, 07/20/2019. She is 3 weeks out. She comes in with decrease drainage from drains but still dark but improved. She has some swelling and has 5 pounds weight gain since surgery. Keep drains. Follow up next week. At her height of 5 foot 4.25, her ideal body weight is 144 pounds. Her highest weight was 331 pounds. Her body mass index is reduced from 56.5 down to 33.2. She comes in 195 pounds from 193 pounds, 1 week ago. She has gained 2 pounds in 1 week. She has lost 136 pounds, lifetime. Percent excess weight loss is 73 %, lifetime. PHYSICAL EXAM: VITAL SIGNS: Height 5 foot 4.25 inches, weight 195 pounds. BMI 33.2 Vital Signs Temp 97.8 F 08/12/19 13:24 Pulse 60 08/12/19 13:24 Resp BP 138/80 08/12/19 13:24 Pulse Ox GENERAL: Well-developed female in no acute distress. HEENT: No scleral icterus. Extraocular was grossly intact. No nasal drainage. NECK: Supple without lymphadenopathy. CHEST: Nonlabored respirations with equal bilateral excursions. CARDIOVASCULAR: Regular rate. Distal 2+ pulses. ABDOMEN: Dressings changed. No infection. Skin flap is viable. JPs are dark. MUSCULOSKELETAL: No clubbing, cyanosis, or edema. NEURO: No focal or lateralizing signs. Cranial nerves 2 through 12 grossly within normal limits. PSYCH: Appropriate affect. Alert and oriented to person, place and time. SKIN: Well perfused. Good skin turgor. ASSESSMENT: 1. Morbid obesity due to excess calories. 2. Body mass index of 56.5 to 33.0 3. Diabetes type 2, improved. 4. Obstructive sleep apnea. 5. Depression. 6. Osteoarthritis of the bilateral hips. 7. Osteoarthritis of the bilateral knees. 8. Gastroesophageal reflux disease. 9. Dietary surveillance and counseling. 10. Hypertension. 11. Vitamin D deficiency. 12. Hypercholesterolemia. 13. Status post sleeve gastrectomy. 14. Panniculitis. 15. Status post panniculectomy, 10 pounds PLAN: 1. Recommend keep drains. 2. Follow up next week. Objective - Vital Signs Vital signs: Vital Signs Temp 97.8 F 08/12/19 13:24 Pulse 60 08/12/19 13:24 Resp BP 138/80 08/12/19 13:24 Pulse Ox Intake & Output 08/11/19 08/12/19 08/12/19 18:59 06:59 18:59 Weight 88.451 kg
== END | disposition home or self-care (01) ==
LOC: BARWHC3 12:53
PROVIDERS: ATTEND Surgery Plastic and Reconstructive Surgery
DX: E66.01 Morbid (severe) obesity due to excess calories (principal); E11.9 Type 2 diabetes mellitus without complications; G47.33 Obstructive sleep apnea (adult) (pediatric); F32.9 Major depressive disorder, single episode, unspecified; I10 Essential (primary) hypertension; E55.9 Vitamin D deficiency, unspecified; M16.0 Bilateral primary osteoarthritis of hip; M17.0 Bilateral primary osteoarthritis of knee; K21.9 Gastro-esophageal reflux disease without esophagitis; Z71.3 Dietary counseling and surveillance; Z68.33 Body mass index [BMI] 33.0-33.9, adult; E78.00 Pure hypercholesterolemia, unspecified; Z98.84 Bariatric surgery status; M79.3 Panniculitis, unspecified
CPT/HCPCS: 99212

== ENCOUNTER → 2019-08-26 | Outpatient (CLI) | payer OTHER ==
--- NOTE | 2019-08-26 14:36 | P.PN ---
Subjective Progress Note Date: 08/26/19 She is doing well. No fluid. She is wearing her binder. She feels great. September 18 wearing binder. Follow up 1 month. Objective - Vital Signs Vital signs: Vital Signs Temp 97.8 F 08/26/19 14:25 Pulse 73 08/26/19 14:25 Resp 16 08/26/19 14:25 BP 130/82 08/26/19 14:25 Pulse Ox Intake & Output 08/25/19 08/26/19 08/26/19 18:59 06:59 18:59 Weight 89.358 kg
[2019-08-28 09:30] VITALS: BP 130/82; PULSE 73; RESP 16; TEMP 97.8; BMI 33.5
== END | disposition home or self-care (01) ==
LOC: BARWHC3 13:08
PROVIDERS: ATTEND Surgery Plastic and Reconstructive Surgery
DX: E66.01 Morbid (severe) obesity due to excess calories (principal); Z68.33 Body mass index [BMI] 33.0-33.9, adult; Z98.84 Bariatric surgery status
CPT/HCPCS: 99211

== ENCOUNTER → 2020-04-01 | Outpatient (CLI) | payer OTHER ==
--- NOTE | 2020-04-05 13:33 | MM ---
Reason for exam: screening (asymptomatic). Last mammogram was performed 4 years and 1 month ago. Physical Findings: A clinical breast exam by your physician is recommended on an annual basis and results should be correlated with mammographic findings. MG 3D Screening Mammo W/Cad Bilateral CC and MLO view(s) were taken. Prior study comparison: February 27, 2016, bilateral MG screening mammo w CAD. There are scattered fibroglandular densities. No significant changes when compared with prior studies. ASSESSMENT: Negative, BI-RAD 1 RECOMMENDATION: Routine screening mammogram of both breasts in 1 year.
== END | disposition home or self-care (01) ==
LOC: RADMAMWWP 16:02
PROVIDERS: ATTEND Obstetrics & Gynecology
DX: Z12.31 Encounter for screening mammogram for malignant neoplasm of breast (principal)
CPT/HCPCS: 77063; 77067

== ENCOUNTER → 2020-06-08 | Outpatient (CLI) | payer OTHER ==
[2020-06-08 13:07] LABS: Basophils # (A) 0.1 k/uL (0-0.2); Basophils % (A) 1 %; Eosinophils # (A) 0.2 k/uL (0-0.7); Eosinophils % (A) 3 %; HGB 14.1 gm/dL (11.4-16.0); Lymphocytes % (A) 39 %; MCH 32.3 pg (25.0-35.0); MCHC 33.4 g/dL (31.0-37.0); MCV 96.6 fL (80.0-100.0); Mean Platelet Volume 7.7; Monocytes # (A) 0.4 k/uL (0-1.0); Monocytes % (A) 8 %; Neutrophils # (A) 2.5 k/uL (1.3-7.7); Neutrophils % (A) 47 %; Platelet Count 247 k/uL (150-450); RBC 4.35 m/uL (3.80-5.40); RDW 12.9 % (11.5-15.5); WBC 5.3 k/uL (3.8-10.6)
[2020-06-08 13:09] LABS: Appearance,Urine Clear (Clear); Bilirubin,Urine Negative (Negative); Blood,Urine Negative (Negative); Color,Urine Light Yellow; Glucose,Urine (UA) Negative (Negative); Ketones,Urine Negative (Negative); Leukocyte Esterase,Urine Negative (Negative); Nitrite,Urine Negative (Negative); PH, Urine 6.5 (5.0-8.0); Protein,Urine Negative (Negative); Specific Gravity,Urine 1.011 (1.001-1.035); Urobilinogen,Urine <2.0 mg/dL (<2.0)
[2020-06-08 13:16] LABS: African American GFR (CKD) >90 (>60 ml/min/1.73 sqM); Anion Gap 4 mmol/L; Blood Urea Nitrogen 14 mg/dL (7-17); Carbon Dioxide 30 mmol/L (22-30); Chloride 104 mmol/L (98-107); Glucose 84 mg/dL (74-99); Potassium 4.2 mmol/L (3.5-5.1); Sodium 138 mmol/L (137-145)
[2020-06-08 13:17] LABS: Calcium 9.5 mg/dL (8.4-10.2); Non-African American GFR(CKD) >90 (>60 ml/min/1.73 sqM)
== END | disposition home or self-care (01) ==
LOC: LABPAT 11:41
PROVIDERS: ATTEND Urology
DX: Z01.818 Encounter for other preprocedural examination (principal); N39.3 Stress incontinence (female) (male); N39.0 Urinary tract infection, site not specified; R35.0 Frequency of micturition
CPT/HCPCS: 36415; 80048; 81003; 85025; 87086

== ENCOUNTER 2020-06-15 06:16 | Observation (INO) | payer OTHER ==
[2020-06-13 09:50] VITALS: BMI 36.6
--- NOTE | 2020-06-14 18:41 | P.GSHP ---
History of Present Illness H&P Date: 06/14/20 50 yo female with a history of incontinence for several years getting worse. Her primary incontinence is stress with leakage with cough, lift and sneeze. She aslo has some urinary urgeny but the primary problem is roque. She was evaluated and found to have a hypermobile urethra, roque, and a positive chanda test. Because of her urgency she underwent uds and it didnt identify any significant detrusor instability. SHe was given multiple treatment options She comes for a TOT[obtyrx]. the risks and complications inluding infection,retention, failure, bleeding pain, mesh erosion and infection, dyspareunia, injury to adjacent organs have been explained understood and accepted - Constitutional Constitutional: Denies chills, Denies fever - EENT Eyes: denies blurred vision, denies pain Ears, nose, mouth and throat: Denies headache, Denies sore throat - Cardiovascular Cardiovascular: Denies chest pain, Denies shortness of breath - Respiratory Respiratory: Denies cough, Denies 7 - Gastrointestinal Gastrointestinal: Denies abdominal pain, Denies diarrhea, Denies nausea, Denies vomiting - Genitourinary (Female) Genitourinary: Denies dysuria, Denies hematuria - Genitourinary (Male) Genitourinary: Denies dysuria, Denies hematuria - Musculoskeletal Musculoskeletal: Denies myalgias - Integumentary Integumentary: Denies pruritus, Denies rash - Neurological Neurological: Denies numbness, Denies weakness - Psychiatric Psychiatric: Denies anxiety, Denies depression - Endocrine Endocrine: Denies fatigue, Denies weight change Past Medical History Past Medical History: No Reported History Additional Past Medical History / Comment(s): Occasional joint pain, varicose veins. History of Any Multi-Drug Resistant Organisms: None Reported Past Surgical History: Bariatric Surgery, Cholecystectomy, Orthopedic Surgery, Tubal Ligation Additional Past Surgical History / Comment(s): EGD, right thumb surgery, Vertical Sleeve Gastrectomy, Panniculectomy. Past Anesthesia/Blood Transfusion Reactions: No Reported Reaction Past Psychological History: No Psychological Hx Reported Smoking Status: Never smoker Past Alcohol Use History: Rare Past Drug Use History: None Reported - Past Family History Father Family Medical History: Cancer, Congestive Heart Failure (CHF), COPD, Diabetes Mellitus Additional Family Medical History / Comment(s): Prostate Cancer. Mother Family Medical History: Diabetes Mellitus Medications and Allergies Home Medications Medication Instructions Recorded Confirmed Type No Known Home Medications 06/13/20 06/13/20 History Allergies Allergy/AdvReac Type Severity Reaction Status Date / Time No Known Allergies Allergy Verified 06/13/20 09:37 Surgical - Exam - General well developed, well nourished, no distress, obese - Eyes PERRL - ENT no hearing loss - Neck trachea midline - Respiratory normal expansion, normal respiratory effort - Cardiovascular Rhythm: regular - Abdomen Abdomen: soft, non tender - Genitourinary hypermobile urethra and roque - Integumentary no rash, no growths - Neurologic normal coordination, normal sensation - Musculoskeletal normal gait, normal posture - Psychiatric oriented to time, oriented to person, oriented to place, speech is normal, memory intact Assessment and Plan Assessment: Impression: ROQUE Plan TOT with obtyrx graft, cystoscopy
[~2020-06-15 06:16] MED LIST changes: +AMPICILLIN 1,000 MG in SODIUM CHLORIDE 0.9% 50 ML IVPB PRN; +DEXAMETHASONE SOD PHOSPHATE 4 MG/ML 1 ML VIAL IV ONE; +GENTAMICIN 110 MG in SODIUM CHLORIDE 0.9% 100 ML IVPB PRN; +LACTATED RINGERS 1,000 ML IV SCH; +LIDOCAINE 1% (10MG/ML) FOR IV START INTRADERMA PRN; +MIDAZOLAM 2 MG/2 ML VIAL IV PRN; -SODIUM CHLORIDE 0.9% 1,000 ML IV ONE
[2020-06-15] MEDS ORDERED: ONDANSETRON 4 MG/2 ML VIAL ONE (06:55)
[2020-06-15] MEDS ORDERED: HYDROmorphone 0.5 MG/0.5 ML SYRINGE IVP PRN (07:00)
[2020-06-15] MEDS ORDERED: PROPOFOL 10 MG/ML 20 ML VIAL IV ONE (07:22)
[2020-06-15] MEDS ORDERED: MIDAZOLAM 2 MG/2 ML VIAL ONE (07:22)
[2020-06-15] MEDS ORDERED: fentaNYL (PF) 50 MCG/ML 2 ML AMP ONE (07:22)
[2020-06-15] MEDS ORDERED: LIDOCAINE 1% INJ 10MG/ML (20 ML MDV) ONE (07:22)
[2020-06-15] MEDS ORDERED: KETOROLAC 30 MG/ML 1 ML VIAL ONE (07:22)
[2020-06-15] MEDS ORDERED: GENTAMICIN 80 MG in SODIUM CHLORIDE 0.9% 500 ML 500 ML IRRIGATION ONE (07:51)
[2020-06-15] MEDS ORDERED: VASOPRESSIN 20 UNIT in SODIUM CHLORIDE 0.9% 200 ML IM ONE (07:54)
[2020-06-15] MEDS ORDERED: BACITRACIN OINT 1 EACH PACKET TOPICAL ONE (08:01)
[2020-06-15] MEDS ORDERED: ONDANSETRON 4 MG/2 ML VIAL IVP PRN (08:18)
--- NOTE | 2020-06-15 08:27 | P.OP ---
Date of Procedure: 06/15/20 Preoperative Diagnosis: Stress urinary incontinence Postoperative Diagnosis: Same Procedure(s) Performed: Trans-obturator tape with obtyrx2 graft, cystoscopy Anesthesia: RENE Surgeon: Phani Paiz Estimated Blood Loss (ml): 100 Pathology: none sent Condition: stable Disposition: PACU Indications for Procedure: The patient is 50. She has stress urinary incontinence by history physical examination urodynamics. Her urinary urgency probably related to the same as her urodynamics were normal. She comes for a trans-obturator tape. Risks and complications outlined Description of Procedure: Patient is brought to the operative suite. She is given a general endotracheal anesthesia. She's placed lithotomy position with a sterile prep and drape. The labia are sewn laterally with 2-0 silk bilaterally. A vaginal speculum was introduced. A Meyer catheters introduced. Anterior vaginal mucosa was elevated off the submucosa with 20 g of Pitressin and 200 mL of saline. A midline suburethral incision is made. I dissect lateral the bladder neck bilaterally with Metzenbaum scissors. I then make 2 incisions in the inguinal crease at the level clitoris. I then pass the trans-obturator tape introducers through the inguinal incisions into the obturator space around the issue pubic ramus into the vaginal space making sure not to buttonhole the vagina. This is done bilaterally. I remove the Meyer and perform cystoscopy to make sure there is no bladder injury and there is none. I replaced the Meyer. I attached the graft to each ends of the introducers and pull them back through the inguinal incisions bilaterally. The graft lay in the mid urethra nicely. I removed the redundant sheeting. He mucosa with a running 2-0 Vicryl. I excised redundant graft in the inguinal incision and close it with a 4 Vicryl. A vaginal packing is placed. The urine remains clear. The patient's awakened and returned recovery room good condition. Blood loss approximately 100 mL. The patient will be placed in the hospital postoperatively.
[2020-06-15] MEDS: HYDROcodone/APAP 5-325MG 1 EACH TAB PO PRN ×4 (10:38→22:21)
[2020-06-15] MEDS: DEXTROSE 5%-0.45% NACL 1,000 ML IV SCH ×2 (10:56→22:21)
[2020-06-15] MEDS: KETOROLAC 15 MG/ML 1 ML VIAL IVP PRN ×2 (13:25→18:15)
[2020-06-15 20:41] VITALS: RESP 16
[2020-06-16] MEDS: KETOROLAC 15 MG/ML 1 ML VIAL IVP PRN (01:00)
[2020-06-16] MEDS: HYDROcodone/APAP 5-325MG 1 EACH TAB PO PRN ×2 (05:47→11:06)
--- NOTE | 2020-06-16 06:45 | P.DS ---
Providers Date of admission: 06/15/20 18:15 Attending physician: Phani Paiz Primary care physician: [facility] Course: The patient is 50. She has stress urinary incontinence. She is admitted to the hospital 06/15/20 for a trans-obturator tape with cystoscopy. This was done uneventfully. Postoperatively she did well. Pain was controlled with [place]. The packing and catheter removed this morning. She voids well she'll be discharged home later today. She'll be given a prescription of [place]. Postoperative instructions were given. Condition is good. She'll follow-up in the office in one week. She's been instructed to contact us at any time for any issues. Patient Condition at Discharge: Good Plan - Discharge Summary Discharge Rx Participant: Yes New Discharge Prescriptions: New HYDROcodone/APAP 5-325MG [[place] 5-325] 1 tab PO Q4HR PRN #10 tab PRN Reason: Pain Control Discharge Medication List HYDROcodone/APAP 5-325MG [[place] 5-325] 1 tab PO Q4HR PRN #10 tab 06/16/20 [Rx] Follow up Appointment(s)/Referral(s): Phani Paiz MD [STAFF PHYSICIAN] - 1 Week Discharge Disposition: HOME SELF-CARE
[2020-06-16 09:22] VITALS: BP 81/48; PULSE 58; TEMP 97.7
[2020-06-16] MEDS: DEXTROSE 5%-0.45% NACL 1,000 ML IV SCH (11:54)
== END 2020-06-16 12:03 | disposition home or self-care (01) ==
LOC: OR 06:16 → 6PED 08:47 → OR 18:15 → 6PED 18:15
PROVIDERS: ADMIT Urology; ATTEND Urology
DX: N39.3 Stress incontinence (female) (male) (principal); N36.41 Hypermobility of urethra; I83.90 Asymptomatic varicose veins of unspecified lower extremity; M25.50 Pain in unspecified joint; Z20.822 Contact with and (suspected) exposure to COVID-19; Z98.84 Bariatric surgery status; Z90.49 Acquired absence of other specified parts of digestive tract; Z98.51 Tubal ligation status; Z98.890 Other specified postprocedural states; Z82.49 Family history of ischemic heart disease and other diseases of the circulatory system; Z82.5 Family history of asthma and other chronic lower respiratory diseases; Z83.3 Family history of diabetes mellitus; Z80.42 Family history of malignant neoplasm of prostate
CPT/HCPCS: 57288; 81025; 87635; G0378 ×2; C1771; J2250; J1580 ×2; J1100; J2405; J2001; J3010; J1885 ×3; J0290; J2704

== ENCOUNTER 2021-11-24 06:51 | Day surgery (SDC) | payer BC, OTHER ==
--- NOTE | 2021-11-23 09:46 | P.HPOR ---
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 She is having medial pain along with catching and giving way. She has intermittent swelling. She's tried medications in addition to an injection without much relief. She notes daily pain that limits her. Review of Systems As per HPI Past Medical History Past Medical History: No Reported History Additional Past Medical History / Comment(s): bilateral arthritis of knees History of Any Multi-Drug Resistant Organisms: None Reported Past Surgical History: Bariatric Surgery, Cholecystectomy, Orthopedic Surgery, Tubal Ligation Additional Past Surgical History / Comment(s): EGD, right thumb surg, Vertical sleeve gastrectomy 10-29-16 panniculectomy 07-20-19 Past Anesthesia/Blood Transfusion Reactions: No Reported Reaction Smoking Status: Never smoker - Past Family History Father Family Medical History: Cancer, Congestive Heart Failure (CHF), COPD, Diabetes Mellitus Additional Family Medical History / Comment(s): Prostate Cancer. Mother Family Medical History: Diabetes Mellitus Medications and Allergies Home Medications Medication Instructions Recorded Confirmed Type Liraglutide [Saxenda] 1 dose SQ DAILY 11/22/21 11/22/21 History Naproxen Sodium 550 mg PO DAILY PRN 11/22/21 11/22/21 History Allergies Allergy/AdvReac Type Severity Reaction Status Date / Time No Known Allergies Allergy Verified 11/22/21 13:09 Physical Examination - Knee right Appearance: effusion Effusion grade: grade 1 Tenderness with palpation: medial Pain: with flexion ROM: extension: -10 degrees ROM: flexion: 120 degrees Strength: extension: 5/5 Strength: flexion: 5/5 Meniscal tests: medial meniscal tests: positive, lateral meniscal tests: positive Results The patient is a well-developed well-nourished female a proximal 5 foot 4, 221 pounds of endomorphic habitus. HEENT exam is nonfocal, neck supple. She has painless passive motion of the right hip. Straight leg raise is negative. Her distal neurovascular appears intact on the right lower extremity. - Diagnostic results Knee MRI: image reviewed (Right knee MRI shows evidence of a anterior and mid body lateral meniscal tear.) Assessment and Plan Assessment: Right knee internal derangement/symptomatic lateral meniscal tear Increased body mass index Plan: I talked to the patient length regarding her condition along with treatment options. At this point she is having persistent pain and mechanical symptoms despite previous conservative measures. After thorough discussion she has proceed with surgery. We'll plan to proceed with right knee arthroscopy with possible partial lateral meniscectomy. We will likely perform that as an outpatient procedure. Risks and benefits were discussed at length in layman's terms. Time with Patient: Less than 30
[~2021-11-24 06:51] MED LIST changes: -AMPICILLIN 1,000 MG in SODIUM CHLORIDE 0.9% 50 ML IVPB PRN; -GENTAMICIN 110 MG in SODIUM CHLORIDE 0.9% 100 ML IVPB PRN; -MIDAZOLAM 2 MG/2 ML VIAL IV PRN; +ONDANSETRON 4 MG/2 ML VIAL IVP ONE; +SCOPOLAMINE 1 MG/72 HR PATCH TRANSDERM ONE
[2021-11-24] MEDS ORDERED: HYDROmorphone 0.5 MG/0.5 ML SYRINGE IVP PRN (07:00)
[2021-11-24 07:26] VITALS: RESP 16
[2021-11-24] MEDS ORDERED: LACTATED RINGERS 1,000 ML IV ONE (07:30)
[2021-11-24 07:31] LABS: Glucose,Whole Blood 88 mg/dL (70-110)
[2021-11-24] MEDS ORDERED: MIDAZOLAM 2 MG/2 ML VIAL ONE (07:55)
[2021-11-24] MEDS ORDERED: SUCCINYLCHOLINE CHLORIDE 200 MG/10 ML VIAL IV ONE (07:55)
[2021-11-24] MEDS ORDERED: LIDOCAINE 2% INJ 20 MG/ML (2 ML VIAL) ONE (07:55)
[2021-11-24] MEDS ORDERED: fentaNYL (PF) 50 MCG/ML 2 ML AMP ONE (07:55)
[2021-11-24] MEDS ORDERED: PROPOFOL 10 MG/ML 20 ML VIAL IV ONE (07:55)
[2021-11-24] MEDS ORDERED: EPINEPHrine (PF) 1 ML in SODIUM CHLORIDE 0.9% IRRIGATIO 3,000 ML IRRIGATION ONE ×4 (08:00)
--- NOTE | 2021-11-24 08:52 | P.OP ---
Date of Procedure: 11/24/21 Preoperative Diagnosis: Right knee internal derangement Postoperative Diagnosis: Right knee posterior medial and middle one third lateral meniscal tears Procedure(s) Performed: Right knee arthroscopic partial medial meniscectomy/partial lateral meniscectomy Anesthesia: AMARILISA Surgeon: Alfonzo De Los Santos Estimated Blood Loss (ml): 10 Pathology: none sent Condition: stable Disposition: PACU Indications for Procedure: The patient's a 51-year-old female who presents with progressive right knee pain and mechanical symptoms despite conservative measures. A discussion of the risks and benefits of operative intervention versus continued conservative measures made with patient. She opted to proceed with surgery. Operative risks to include infection, neurovascular injury, development of blood clots, possible incomplete resolution of symptoms, possible worsening symptoms and need for subsequent procedures was discussed. Informed consent was obtained. Operative Findings: As below Description of Procedure: The patient was brought to the operating room, and after induction of general anesthesia examined the right knee. Collaterals were stable, Franky was negative, and posterior drawer was negative. The right lower extremity was prepped and draped in a normal fashion. A superior lateral portal was made through a 3 mm skin incision superior and lateral to the patella. This was used for outflow. A lateral portal was made through a 5 mm vertical skin incision lateral to the patella tendon above the joint line. Diagnostic arthroscopy was performed. On inspection of the medial compartment, and oblique tear involving the posterior horn of the medial meniscus in the white-white junction was noted. There was a flap stuck in the notch.. This was debrided back to stable base with straight baskets and a motorized shaver. Minimal degenerative changes involving medial compartment were noted. On inspection of the notch, the anterior cruciate ligament appeared to be intact. On inspection of the lateral compartment, a complex tear involving the anterior/middle one third of the lateral meniscus was noted in the white-white junction. This was debrided back to stable base with straight baskets and a motorized shaver. Grade 2 chondral changes were noted involving the distal lateral femoral condyle. On inspection of the patellofemoral articulation, there was grade 2-3 chondral changes however no loose chondral fragments. The gutters were clear debris. The knee was then thoroughly irrigated. The portals were closed with Steri- Strips. A sterile dressing was applied in addition to a compression stocking. The patient was awoken from general anesthesia and transferred to recovery room in good condition. Blood loss was estimated at 10 mL. No complications were incurred.
[2021-11-24 08:56] VITALS: TEMP 97
[2021-11-24] MEDS ORDERED: HYDROcodone/APAP 5-325MG 1 EACH TAB ONE (10:04)
[2021-11-24] MEDS ORDERED: HYDROcodone/APAP 5-325MG 1 EACH TAB PO ONE (10:05)
[2021-11-24 12:26] VITALS: BP 134/76; PULSE 85
== END 2021-11-24 12:30 | disposition home or self-care (01) ==
LOC: OR 06:51
PROVIDERS: ATTEND Orthopaedic Surgery
DX: M23.91 Unspecified internal derangement of right knee (principal); M17.0 Bilateral primary osteoarthritis of knee; Z98.84 Bariatric surgery status; Z90.49 Acquired absence of other specified parts of digestive tract; Z98.890 Other specified postprocedural states; Z98.51 Tubal ligation status; Z83.3 Family history of diabetes mellitus; Z80.42 Family history of malignant neoplasm of prostate; Z82.5 Family history of asthma and other chronic lower respiratory diseases; Z82.49 Family history of ischemic heart disease and other diseases of the circulatory system; Z79.890 Hormone replacement therapy; Z79.899 Other long term (current) drug therapy
CPT/HCPCS: 29880; J2250; J0330; J1100; J0690; J2405; J0171; J3010; J2704; J1170; J2001

== ENCOUNTER → 2022-03-14 | Outpatient (CLI) | payer BC, OTHER ==
[2022-03-14 16:10] VITALS: BP 131/84; PULSE 69; TEMP 97.5; BMI 39.8
--- NOTE | 2022-03-14 16:39 | P.HPBAR ---
Bariatric H&P - History & Physicial H&P Date: 03/14/22 History & Physicial: Visit/CC: bariatric F/U Patient initial contact: Initial weight: 148.415 kg Initial weight in pounds: 327.20 Height: 5 ft 4.25 in Initial BMI: 55.7 Last weight: Current weight: 106.141 kg Current weight in pounds: 234.00 Current BMI: 39.8 [place] body weight (based on NIH guidelines): 54.998 kg Excess body weight loss: 45.2% The patient is a 51 year-old F who presents for Bariatric Assessment. Patient with history of sleeve gastrectomy status post panniculectomy 4 years ago. She comes in with almost a 40 pound weight gain. She reports severe gastroesophageal reflux disease exacerbated after her panniculectomy. Currently on an antacids. Patient reports some troubles with swallowing. Recommend full bariatric pounds due to new weight gain and esophagram for trouble swallowing dysphagia. Upper endoscopy also advised. Omeprazole 40 mg daily prescribed Past Medical History Past Medical History: No Reported History Additional Past Medical History / Comment(s): bilateral arthritis of knees History of Any Multi-Drug Resistant Organisms: None Reported Past Surgical History: Bariatric Surgery, Cholecystectomy, Orthopedic Surgery, Tubal Ligation Additional Past Surgical History / Comment(s): EGD, right thumb surg, Vertical sleeve gastrectomy 10-29-16 panniculectomy 07-20-19, right knee athroscopic meniscus repair 2021 Past Anesthesia/Blood Transfusion Reactions: No Reported Reaction Past Psychological History: Depression Additional Psychological History / Comment(s): "mood swings in the past" stated by the patient lives with her and children. Lifelong nonsmoker. No significant alcohol use. No recreational drug use. No travel history. No experience. 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 His exposure to have 4 dogs, one cat and one snake in the family home. All the animals are up-to-date on her vaccines. Smoking Status: Never smoker Past Alcohol Use History: Occasional Past Drug Use History: None Reported Additional Drug Use History / Comment(s): occasional gummies. pt instructed none 24 hrs before procedure. - Past Family History Father Family Medical History: Cancer, Congestive Heart Failure (CHF), COPD, Diabetes Mellitus Additional Family Medical History / Comment(s): Prostate Cancer. Mother Family Medical History: Diabetes Mellitus Surgical - Exam Vital Signs Temp Pulse BP 97.5 F L 69 131/84 03/14/22 16:04 03/14/22 16:04 03/14/22 16:04 Bariatric Checklist Checklist: Plan: Checklist: EGD: 1. Hiatal hernia: 2. H. Pylori: HgbA1c: Vitamin D: Smoking: Never smoker Primary care physician referral: [facility] Psychiatry clearance: Cardiology clearance: Sleep study: Diet journal: VTE risk score: VTE risk level: Rehab needs at discharge:
== END ==
LOC: BARWHC3 15:56
PROVIDERS: ATTEND Surgery Plastic and Reconstructive Surgery
DX: E66.01 Morbid (severe) obesity due to excess calories (principal); Z48.815 Encounter for surgical aftercare following surgery on the digestive system; Z98.84 Bariatric surgery status
CPT/HCPCS: 99211

== ENCOUNTER → 2022-03-15 | Outpatient (CLI) | payer BC, OTHER ==
[2022-03-15 08:39] LABS: INR 0.9 (<1.2); Partial Thromboplastin Time 24.3 sec (22.0-30.0)
[2022-03-15 10:48] LABS: HCT 41.6 % (37.2-46.3); HGB 13.4 g/dL (12.0-15.0); MCH 31.8 pg (27.0-32.0); MCHC 32.2 g/dL (32.0-37.0); MCV 98.8 fL (80.0-97.0); Mean Platelet Volume 11.6 fL (9.5-12.2); NRBC Per 100 WBC 0 /100 WBCS (0.0-0.0); Platelet Count 188 X 10*3/uL (140-440); RBC 4.21 X 10*6/uL (4.10-5.20); RDW 12.9 % (11.5-14.5); WBC 5.33 X 10*3/uL (4.50-10.00)
[2022-03-15 11:27] LABS: % Iron Saturation 18.12 (12.00-45.00); ALT 21 U/L (8-44); AST 21 U/L (13-35); African American GFR (CKD) 84.1 (60.0-200.0); Albumin 4.3 g/dL (3.8-4.9); Albumin/Globulin Ratio 1.77 (1.60-3.17); Alkaline Phosphatase 72 U/L (41-126); BUN/Creat Ratio 15.22 Ratio (12.00-20.00); Carbon Dioxide 27.8 mmol/L (20.0-27.5); Chloride 104 mmol/L (96-109); Ferritin 28.7 ng/mL (10.0-291.0); Globulin 2.4 g/dL (1.6-3.3); Glucose 88 mg/dL (70-110); Iron 86 ug/dL (50-170); Magnesium 2.1 mg/dL (1.5-2.4); Non-African American GFR(CKD) 72.6 (60.0-200.0); Phosphorus 4.1 mg/dL (2.4-5.1); Sodium 144 mmol/L (135-145); Total Iron Binding Capacity 472 ug/dL (228-460); Total Protein 6.8 g/dL (6.2-8.2)
[2022-03-15 12:01] LABS: LDL Cholesterol,Calculated 105.7 mg/dL (0.0-131.0); Prealbumin 26.3 mg/dL (18.0-42.0); VLDL Calculation 10.82 mg/dL (5.00-40.00)
[2022-03-16 11:53] LABS: Zinc, Serum 71 ug/dL (60-130)
== END | disposition home or self-care (01) ==
LOC: LABWHC1 07:29
PROVIDERS: ATTEND Surgery Plastic and Reconstructive Surgery
DX: E89.1 Postprocedural hypoinsulinemia (principal); E66.01 Morbid (severe) obesity due to excess calories; D50.9 Iron deficiency anemia, unspecified; K91.2 Postsurgical malabsorption, not elsewhere classified; E44.0 Moderate protein-calorie malnutrition; E45 Retarded development following protein-calorie malnutrition; E55.9 Vitamin D deficiency, unspecified; K74.1 Hepatic sclerosis; N19 Unspecified kidney failure; T56.894A Toxic effect of other metals, undetermined, initial encounter; K50.90 Crohn's disease, unspecified, without complications
CPT/HCPCS: 36415; 80053; 80061; 82306; 82525; 82607; 82728; 82746; 83540; 83550; 83735; 83970; 84100; 84134; 84255; 84425; 84443; 84590; 84630; 85027; 85610; 85730

== ENCOUNTER 2022-05-07 07:50 | Day surgery (SDC) | payer BC, OTHER ==
[2022-05-02 14:58] VITALS: BMI 40.8
--- NOTE | 2022-05-07 07:48 | P.GSHP ---
History of Present Illness H&P Date: 05/07/22 CHIEF COMPLAINT: GERD HISTORY OF PRESENT ILLNESS: The patient is a 52-year-old female who presents reports gastroesophageal reflux disease. Upper endoscopy was offered for further evaluation and management. PAST MEDICAL HISTORY: Please see list. PAST SURGICAL HISTORY: Please see list. MEDICATIONS: Please see list. ALLERGIES: Please see list. SOCIAL HISTORY: No illicit drug use FAMILY HISTORY: No reports of Crohn disease or ulcerative colitis. REVIEW OF ORGAN SYSTEMS: CONSTITUTIONAL: No reports of fevers or chills. GI: Denies any blood in stools or constipation. PHYSICAL EXAM: VITAL SIGNS: Stable GENERAL: Well-developed and pleasant in no acute distress. HEENT: No scleral icterus. Extraocular movements grossly intact. Moist buccal mucosa. NECK: Supple without lymphadenopathy. CHEST: Unlabored respirations. Equal bilateral excursions. CARDIOVASCULAR: Regular rate and rhythm. Distal 2+ pulses. ABDOMEN: Soft, nondistended. MUSCULOSKELETAL: No clubbing, cyanosis, or edema. ASSESSMENT: 1. Gastroesophageal reflux disease PLAN: 1. Recommend proceeding with an upper endoscopy Past Medical History Past Medical History: Osteoarthritis (OA) Additional Past Medical History / Comment(s): Swallowing difficulty, gerd, bilateral arthritis of knees History of Any Multi-Drug Resistant Organisms: None Reported Past Surgical History: Bariatric Surgery, Cholecystectomy, Orthopedic Surgery, Tubal Ligation Additional Past Surgical History / Comment(s): EGD, right thumb surg, Vertical sleeve gastrectomy 10-29-16 panniculectomy 07-20-19, right knee athroscopic meniscus repair 2021 Past Anesthesia/Blood Transfusion Reactions: No Reported Reaction Additional Past Anesthesia/Blood Transfusion Reaction / Comment(s): Pt has never had a blood transfusion Smoking Status: Never smoker - Past Family History Father Family Medical History: Cancer, Congestive Heart Failure (CHF), COPD, Diabetes Mellitus Additional Family Medical History / Comment(s): Prostate Cancer. Mother Family Medical History: Diabetes Mellitus Medications and Allergies Home Medications Medication Instructions Recorded Confirmed Type Naproxen Sodium 550 mg PO DAILY PRN 11/22/21 05/02/22 History HYDROcodone/APAP 5-325MG [[place] 1 tab PO Q6HR PRN #21 tab 11/24/21 05/02/22 Rx 5-325] Omeprazole [PriLOSEC] 40 mg PO DAILY #14 cap 03/14/22 05/02/22 Rx Multivit/Iron Sulf/Folic Acid 1 tab PO DAILY 05/02/22 05/02/22 History [Multivitamin with Iron] Allergies Allergy/AdvReac Type Severity Reaction Status Date / Time No Known Allergies Allergy Verified 05/02/22 15:01
[~2022-05-07 07:50] MED LIST changes: -DEXAMETHASONE SOD PHOSPHATE 4 MG/ML 1 ML VIAL IV ONE; -ONDANSETRON 4 MG/2 ML VIAL IVP ONE; +ONDANSETRON 4 MG/2 ML VIAL IVP PRN; -SCOPOLAMINE 1 MG/72 HR PATCH TRANSDERM ONE
[2022-05-07] MEDS ORDERED: ONDANSETRON 4 MG/2 ML VIAL IVP PRN (08:13)
[2022-05-07] MEDS ORDERED: LACTATED RINGERS 1,000 ML IV SCH (08:13)
[2022-05-07] MEDS ORDERED: LIDOCAINE 1% (10MG/ML) FOR IV START INTRADERMA PRN (08:13)
[2022-05-07 08:40] VITALS: TEMP 96.8
[2022-05-07] MEDS ORDERED: LIDOCAINE 2% INJ 20 MG/ML (2 ML VIAL) ONE (09:07)
[2022-05-07] MEDS ORDERED: PROPOFOL 10 MG/ML 20 ML VIAL IV ONE (09:07)
--- NOTE | 2022-05-07 09:34 | P.PCN ---
Date of Procedure: 05/07/22 Description of Procedure: PREOPERATIVE DIAGNOSIS: Gastroesophageal reflux disease, severe Status post sleeve gastrectomy. Epigastric abdominal pain. POSTOPERATIVE DIAGNOSIS: Gastroesophageal reflux disease, severe Status post sleeve gastrectomy. Epigastric abdominal pain. Diaphragmatic hiatal hernia without obstruction. Chronic superficial gastritis. OPERATION: Esophagogastroduodenoscopy with cold forceps biopsies along the antrum and duodenum SURGEON: Mandi Nunez MD ANESTHESIA: MAC. INDICATIONS: The patient is a 52-year-old female who presents epigastric pain, worsening gastroesophageal reflux disease and a history of sleeve gastrectomy with abdominal pain. She is over 5 years out from her bariatric procedure. Benefits and risks of the procedure were described. Informed consent was obtained. DESCRIPTION: The patient was brought into the endoscopy suite and laid in the left lateral decubitus position. An Olympus gastroscope was passed along the posterior oropharynx down to the distal esophagus where the squamocolumnar junction was at 32 centimeters from the incisors remarkable for chronic erosive esophagitis, LA grade A without ulceration. The stomach was entered where she had a 6-cm hiatal hernia with a diaphragmatic hiatus found at 38 cm. The sleeve reservoir moderately large allowing easy retroflexion of the scope to view the lower esophageal valve. Chronic gastritis albeit mild was found along the antrum with cold biopsies obtained. The first through third portion of the duodenum was examined with biopsies obtained. The scope again had easily retroflexed along the antrum. The stomach was desufflated. The patient tolerated the procedure well. FINDINGS: No acute ulceration found along her sleeve. No corkscrewing sleeve gastrectomy. Squamocolumnar junction at 32 cm from the incisors. Diaphragmatic hiatus at 38 cm. Moderate large gastric reservoir with prior history of sleeve gastrectomy allowing easy retroflexion of the gastroscope to view the lower esophageal valve. Hiatal hernia 6 cm, fixed. LA grade A erosive esophagitis. Biopsies obtained of duodenum Biopsies obtained of stomach RECOMMENDATIONS: Upper endoscopy as needed. Recommend correction of diaphragmatic hiatal hernia and due to symptoms of dysphagia and severe reflux Plan - Discharge Summary New Discharge Prescriptions: Continue Naproxen Sodium 550 mg PO DAILY PRN PRN Reason: Pain Omeprazole [PriLOSEC] 40 mg PO DAILY #14 cap Multivit/Iron Sulf/Folic Acid [Multivitamin with Iron] 1 tab PO DAILY HYDROcodone/APAP 5-325MG [[place] 5-325] 1 tab PO Q6HR PRN #21 tab PRN Reason: Pain Discharge Medication List Naproxen Sodium 550 mg PO DAILY PRN 11/22/21 [History] HYDROcodone/APAP 5-325MG [[place] 5-325] 1 tab PO Q6HR PRN #21 tab 11/24/21 [Rx] Omeprazole [PriLOSEC] 40 mg PO DAILY #14 cap 03/14/22 [Rx] Multivit/Iron Sulf/Folic Acid [Multivitamin with Iron] 1 tab PO DAILY 05/02/22 [History] Follow up Appointment(s)/Referral(s): [facility] [NON-STAFF] - 06/06/22 Patient Instructions/Handouts: Hiatal Hernia (ED), GERD (Gastroesophageal Reflux Disease) (ED) Discharge Disposition: HOME SELF-CARE
[2022-05-07 09:56] VITALS: BP 120/75; PULSE 65; RESP 18
== END 2022-05-07 10:18 | disposition home or self-care (01) ==
LOC: ORWHC2ENDO 07:50
PROVIDERS: ATTEND Surgery Plastic and Reconstructive Surgery
DX: K29.50 Unspecified chronic gastritis without bleeding (principal); K21.00 Gastro-esophageal reflux disease with esophagitis, without bleeding; K44.9 Diaphragmatic hernia without obstruction or gangrene; Z98.84 Bariatric surgery status; Z79.899 Other long term (current) drug therapy; M17.0 Bilateral primary osteoarthritis of knee; Z98.51 Tubal ligation status; Z90.49 Acquired absence of other specified parts of digestive tract; Z98.890 Other specified postprocedural states; Z82.49 Family history of ischemic heart disease and other diseases of the circulatory system; Z83.3 Family history of diabetes mellitus; Z83.6 Family history of other diseases of the respiratory system; Z80.42 Family history of malignant neoplasm of prostate
CPT/HCPCS: 88305; 43239; J2704; J2001

== ENCOUNTER → 2022-06-06 | Outpatient (CLI) | payer BC, OTHER ==
--- NOTE | 2022-06-06 17:00 | P.BASOAP ---
Subjective Progress Note Date: 06/06/22 DATE OF SERVICE: 06/06/2022 CHIEF COMPLAINT: Status post sleeve gastrectomy HISTORY OF PRESENT ILLNESS: The patient is a 52-year-old female who is status post robotic-assisted laparoscopic sleeve gastrectomy on 10/29/2016. She is 6 years out. She comes in with intractable gastroesophageal reflux disease. She reports epigastric pain. No acute dysphagia. Due to the severity of her gastroesophageal reflux disease, she presents for complications from a sleeve gastrectomy. At her height of 5 foot 4.25, her ideal body weight is 144 pounds. Her highest weight was 331 pounds. Her body mass index is reduced from 56.5 down to 40.2. She comes in 236 pounds from 194 pounds, 3 years ago. She has gained 42 pounds in 3 years. She has lost 137 pounds down to 95 pounds, lifetime. Percent excess weight loss is 73 % down to 51%, lifetime. PAST MEDICAL HISTORY: 1. Diabetes type 2, now resolved 2. Depression. 3. Morbid obesity due to excess calories, initial 56.5 now 40.2 4. Osteoarthritis of the bilateral hips. 5. Osteoarthritis of the bilateral knees. 6. Gallstones 7. Gastroesophageal reflux disease. PAST SURGICAL HISTORY: 1. Upper endoscopy. 2. Tubal ligation. 3. Sleeve gastrectomy 4. Status post panniculectomy HOME MEDICATIONS: Previous Rx's Medication Instructions Recorded Ergocalciferol [Vitamin D2 50,000 unit PO Q7D #12 cap 01/14/19 (DRISDOL)] ALLERGIES: None. SOCIAL HISTORY: No active tobacco use. She is a past tobacco user. FAMILY HISTORY: Denies any DVTs, pulmonary embolisms in her family. Denies any ulcerative colitis disease or Crohn's. She does have a family history of morbid obesity. He strong family history of esophageal dysmotility including gastroesophageal reflux disease. Also has a family history of gallbladder disorder. REVIEW OF ORGAN SYSTEMS: CONSTITUTIONAL: At her height of 5 foot 4.25, her ideal body weight is 144 pounds. Her highest weight was 331 pounds. Her body mass index, 56.5. HEENT: Denies any active troubles with vision or hearing. ENDOCRINE: No reports of hypothyroidism. Has insulin resistance with diabetes, now resolved. CARDIOVASCULAR: No reports of palpitations or heart attacks or chest pain. RESPIRATORY: Has daytime somnolence including snoring, suspicious for sleep apnea, now resolved. No recent asthma. GI: Denies any bright red blood per rectum, diarrhea or constipation. Has severe gastroesophageal reflux disease. MUSCULOSKELETAL: Describes generalized muscle aches, including lower back pain or joint pain, improved. NEURO: No reports of headaches or seizure disorders. PSYCH: Has depression. Recent suicidal ideation. HEMATOLOGIC: Denies any abnormal bleeding or bruising. SKIN: No skin cancer. Panniculectomy for panniculitis. PHYSICAL EXAM: VITAL SIGNS: Height 5 foot 4.25 inches, weight 236 pounds. BMI 40.2 Vital Signs Temp 98 F 06/06/22 15:00 Pulse 75 06/06/22 15:00 Resp 16 06/06/22 15:00 BP 137/85 06/06/22 15:00 Pulse Ox FiO2 GENERAL: Well-developed female in no acute distress. HEENT: No scleral icterus. Extraocular was grossly intact. No nasal drainage. NECK: Supple without lymphadenopathy. CHEST: Nonlabored respirations with equal bilateral excursions. CARDIOVASCULAR: Regular rate. Distal 2+ pulses. ABDOMEN: Hyperemia of pannus. Pannus weight of 15 pounds. Soft, nontender. MUSCULOSKELETAL: No clubbing, cyanosis, or edema. NEURO: No focal or lateralizing signs. Cranial nerves 2 through 12 grossly within normal limits. PSYCH: Appropriate affect. Alert and oriented to person, place and time. SKIN: Well perfused. Good skin turgor. EGD FINDINGS: No acute ulceration found along her sleeve. No corkscrewing sleeve gastrectomy. Squamocolumnar junction at 32 cm from the incisors. Diaphragmatic hiatus at 38 cm. Moderate large gastric reservoir with prior history of sleeve gastrectomy allowing easy retroflexion of the gastroscope to view the lower esophageal valve. Hiatal hernia 6 cm, fixed. LA grade A erosive esophagitis STUDIES: Barium swallow independent review demonstrates gastroesophageal reflux disease with sliding hiatal hernia. This is my independent interpretation. REPORT: Barium swallow report demonstrates dysmotility of the esophagus. Final Pathologic Diagnosis A. DUODENUM, BIOPSY: Benign small bowel mucosa with intact villous architecture, negative for histopathologic abnormality. B. GASTRIC ANTRUM, BIOPSY: Minimal chronic gastritis. Helicobacter pylori organisms are not identified on routine H+E sections. ASSESSMENT: 1. Morbid obesity due to excess calories. 2. Body mass index of 56.5 to 40.2 3. Diabetes type 2, improved. 4. Obstructive sleep apnea. 5. Depression. 6. Osteoarthritis of the bilateral hips. 7. Osteoarthritis of the bilateral knees. 8. Gastroesophageal reflux disease. 9. Dietary surveillance and counseling. 10. Hypertension. 11. Vitamin D deficiency. 12. Hypercholesterolemia. 13. Status post sleeve gastrectomy. 14. Status post panniculectomy 15. Diaphragmatic hiatal hernia PLAN: 1. She has intractable gastroesophageal reflux disease with epigastric abdominal pain. Recommend diaphragmatic hiatal hernia repair. 2. Recommend 2 weeks high protein low carbohydrate 3. DVT prophylaxis 4. Lifting restrictions described 4 weeks and 4 pounds 5. She is elevated risk due to pre-existing sleeve gastrectomy and morbid obesity. Assessment/Plan Plan: Date: Initial Weight: 148.415 kg Initial BMI: Current Weight: Current BMI: Type of Surgery: Total Volume in Band: Previous Volume: Volume Removed: Volume Added: Band Size:
[2022-06-07 10:42] VITALS: BP 137/85; PULSE 75; RESP 16; TEMP 98; BMI 40.1
== END ==
LOC: BARWHC3 16:18
PROVIDERS: ATTEND Surgery Plastic and Reconstructive Surgery
DX: E66.01 Morbid (severe) obesity due to excess calories (principal); E11.9 Type 2 diabetes mellitus without complications; F32.A Depression, unspecified; Z68.41 Body mass index [BMI] 40.0-44.9, adult; M16.0 Bilateral primary osteoarthritis of hip; K21.9 Gastro-esophageal reflux disease without esophagitis; K80.20 Calculus of gallbladder without cholecystitis without obstruction; Z98.84 Bariatric surgery status; E78.00 Pure hypercholesterolemia, unspecified; Z71.3 Dietary counseling and surveillance; I10 Essential (primary) hypertension; G47.33 Obstructive sleep apnea (adult) (pediatric); K44.9 Diaphragmatic hernia without obstruction or gangrene; E55.9 Vitamin D deficiency, unspecified; Z98.890 Other specified postprocedural states; M17.0 Bilateral primary osteoarthritis of knee
CPT/HCPCS: 99211

== ENCOUNTER → 2022-07-07 | Outpatient (CLI) | payer BC, OTHER ==
[2022-07-07 13:31] LABS: Basophils # (A) 0.04 X 10*3/uL (0.00-0.10); Basophils % (A) 0.9 %; Eosinophils # (A) 0.06 X 10*3/uL (0.04-0.35); Eosinophils % (A) 1.3 %; HCT 44.6 % (37.2-46.3); HGB 14.9 g/dL (12.0-15.0); Immature Grans, Automated 0.2 %; Lymphocytes # (A) 1.59 X 10*3/uL (0.90-5.00); Lymphocytes % (A) 35.2 %; MCH 32.3 pg (27.0-32.0); MCHC 33.4 g/dL (32.0-37.0); MCV 96.5 fL (80.0-97.0); Mean Platelet Volume 10.4 fL (9.5-12.2); Monocytes # (A) 0.54 X 10*3/uL (0.20-1.00); Monocytes % (A) 11.9 %; NRBC Per 100 WBC 0 /100 WBCS (0.0-0.0); Neutrophils # (A) 2.28 X 10*3/uL (1.80-7.70); Neutrophils % (A) 50.5 %; Platelet Count 243 X 10*3/uL (140-440); RBC 4.62 X 10*6/uL (4.10-5.20); RDW 12.8 % (11.5-14.5); WBC 4.52 X 10*3/uL (4.50-10.00)
[2022-07-07 13:36] LABS: African American GFR (CKD) 85.8 (60.0-200.0); Albumin 4.5 g/dL (3.8-4.9); Albumin/Globulin Ratio 1.67 (1.60-3.17); Anion Gap 10.9 mmol/L (10.00-18.00); BUN/Creat Ratio 22.78 Ratio (12.00-20.00); Blood Urea Nitrogen 20.5 mg/dL (9.0-27.0); Calcium 10.2 mg/dL (8.7-10.3); Carbon Dioxide 26.1 mmol/L (20.0-27.5); Globulin 2.7 g/dL (1.6-3.3); Potassium 4.2 mmol/L (3.5-5.5); Total Bilirubin 0.7 mg/dL (0.30-1.20); Total Protein 7.2 g/dL (6.2-8.2)
== END | disposition home or self-care (01) ==
LOC: LABPAT 08:46
PROVIDERS: ATTEND Surgery Plastic and Reconstructive Surgery
DX: Z01.812 Encounter for preprocedural laboratory examination (principal)
CPT/HCPCS: 80053; 85025; 86850; 86900; 86901

== ENCOUNTER 2022-07-19 09:44 | Inpatient (IN) | payer BC, OTHER ==
--- NOTE | 2022-07-19 07:34 | P.GSHP ---
History of Present Illness H&P Date: 07/19/22 CHIEF COMPLAINT: Paraesophageal hiatal hernia with gastroesophageal reflux disease. HISTORY OF PRESENT ILLNESS: The patient is a 52-year-old female who presents with symptomatic paraesophageal hiatal hernia over one year with gastroesophageal reflux disease. She has completed upper endoscopy workup. Now she presents for surgical intervention. PAST MEDICAL HISTORY: Please see list. PAST SURGICAL HISTORY: Please see list. MEDICATIONS: Please see list. ALLERGIES: Please see list. SOCIAL HISTORY: No illicit drug use FAMILY HISTORY: No reports of Crohn disease or ulcerative colitis. REVIEW OF ORGAN SYSTEMS: CONSTITUTIONAL: No reports of fevers or chills. GI: Denies any blood in stools or constipation. PHYSICAL EXAM: VITAL SIGNS: Stable GENERAL: Well-developed pleasant and in no acute distress. HEENT: No scleral icterus. Extraocular movements grossly intact. Moist buccal mucosa. NECK: Supple without lymphadenopathy. CHEST: Unlabored respirations. Equal bilateral excursions. CARDIOVASCULAR: Regular rate and rhythm. Distal 2+ pulses. ABDOMEN: Soft, nondistended. No peritoneal signs. MUSCULOSKELETAL: No clubbing, cyanosis, or edema. SKIN: Well-perfused. Good skin turgor. REPORTS: Upper endoscopy demonstrates paraesophageal hiatal hernia ASSESSMENT: 1. Diaphragmatic paraesophageal hiatal hernia with severe gastroesophageal reflux disease. PLAN: 1. Recommend proceeding with a robotic paraesophageal hiatal hernia with possible mesh. 2. Benefits and risks of surgical intervention was discussed including possibility of open technique. 3. Inpatient hospitalization recommended of 2 nights 4. DVT prophylaxis. 5. Antibiotic prophylaxis. 6. She has also completed a very low caloric high-protein diet to address underlying hepatomegaly. 7. Non narcotic pain management including abdominal wall block described 8. Blood sugar glucose described. 9. Weight loss management described. Past Medical History Past Medical History: GERD/Reflux, Hearing Disorder / Deafness, Osteoarthritis (OA) Additional Past Medical History / Comment(s): Hard of hearing in left ear. Varicose veins. History of Any Multi-Drug Resistant Organisms: None Reported Past Surgical History: Bariatric Surgery, Cholecystectomy, Orthopedic Surgery, Tubal Ligation Additional Past Surgical History / Comment(s): EGD, right thumb surgery, vertical sleeve gastrectomy 10-29-16 panniculectomy 07-20-19, right knee athroscopic meniscus repair. Past Anesthesia/Blood Transfusion Reactions: No Reported Reaction Additional Past Anesthesia/Blood Transfusion Reaction / Comment(s): Has never had a blood transfusion. Past Psychological History: Depression Smoking Status: Never smoker Past Alcohol Use History: Occasional Past Drug Use History: Marijuana Additional Drug Use History / Comment(s): Occasional Marijuana gummies. Instructed none 24 hrs before procedure. - Past Family History Father Family Medical History: Cancer, Congestive Heart Failure (CHF), COPD, Diabetes Mellitus Additional Family Medical History / Comment(s): Prostate Cancer. Mother Family Medical History: Diabetes Mellitus Medications and Allergies Home Medications Medication Instructions Recorded Confirmed Type No Known Home Medications 07/12/22 07/12/22 History Allergies Allergy/AdvReac Type Severity Reaction Status Date / Time No Known Allergies Allergy Verified 07/12/22 13:26
[~2022-07-19 09:44] MED LIST changes: +ACETAMINOPHEN TAB 500 MG TAB PO STA; +CHLORHEXIDINE GLUCONATE 15 ML CUP MUCOUS MEM PRN; +DEXAMETHASONE SOD PHOSPHATE 4 MG/ML 1 ML VIAL IV ONE; +HEPARIN SODIUM,PORCINE/PF 5,000 UNIT/0.5 ML SYRINGE SQ PRN; +HYDROmorphone 0.5 MG/0.5 ML SYRINGE IVP PRN; -LACTATED RINGERS 1,000 ML IV SCH; -LIDOCAINE 1% (10MG/ML) FOR IV START INTRADERMA PRN; +MIDAZOLAM 2 MG/2 ML VIAL IV PRN; +ONDANSETRON 4 MG/2 ML VIAL IVP ONE; -ONDANSETRON 4 MG/2 ML VIAL IVP PRN; +PANTOPRAZOLE 40 MG/10 ML VIAL IVP PRN; +SCOPOLAMINE 1 MG/72 HR PATCH TRANSDERM STA; +droPERidol 5 MG/2 ML VIAL IVP ONE
[2022-07-19] MEDS: LACTATED RINGERS 1,000 ML IV SCH (10:16)
[2022-07-19] MEDS: SCOPOLAMINE 1 MG/72 HR PATCH TRANSDERM ONE ×2 (10:21→18:09)
[2022-07-19] MEDS ORDERED: fentaNYL (PF) 50 MCG/ML 2 ML AMP ONE (11:26)
[2022-07-19] MEDS ORDERED: PROPOFOL 10 MG/ML 20 ML VIAL IV ONE (11:26)
[2022-07-19] MEDS ORDERED: MIDAZOLAM 2 MG/2 ML VIAL ONE (11:26)
[2022-07-19] MEDS ORDERED: GLYCOPYRROLATE 0.2 MG/ML 2 ML VIAL ONE (11:26)
[2022-07-19] MEDS ORDERED: LIDOCAINE 2% INJ 20 MG/ML (2 ML VIAL) ONE (11:26)
[2022-07-19] MEDS ORDERED: NEOSTIGMINE 1 MG/ML 10 ML VIAL ONE (11:26)
[2022-07-19] MEDS ORDERED: SUCCINYLCHOLINE CHLORIDE 200 MG/10 ML VIAL IV ONE (11:26)
[2022-07-19] MEDS ORDERED: ROCURONIUM 10 MG/ML (5 ML VIAL) IV ONE (11:26)
[2022-07-19] MEDS ORDERED: HYDROmorphone (PF) 1 MG/ML ONE (11:26)
[2022-07-19] MEDS ORDERED: LIDOCAINE 0.5%-EPI 1:200,000 50 ML VIAL SQ ONE (11:57)
[2022-07-19] MEDS ORDERED: HYDROmorphone 1 MG/ML 1 ML SYRINGE IVP PRN (13:55)
--- NOTE | 2022-07-19 13:59 | P.OP ---
Date of Procedure: 07/19/22 Description of Procedure: SURGEON: GILA GORDON MD PREOPERATIVE DIAGNOSES: 1. Gastroesophageal reflux disease 2. Paraesophageal hiatal hernia, midline 3. Morbid obesity due to excess calories, BMI of 38.9 4. History of sleeve gastrectomy 5. Epigastric abdominal pain POSTOPERATIVE DIAGNOSES: 1. Gastroesophageal reflux disease 2. Paraesophageal hiatal hernia, midline, 3 x 3 cm 3. Morbid obesity due to excess calories, BMI of 38.9 4. History of sleeve gastrectomy 5. Epigastric abdominal pain OPERATION: 1. Robotic-assisted da Gloria Xi laparoscopic reduction and repair of recurrent incarcerated paraesophageal hiatal hernia, 3 x 3 cm, with [place] Biopatch A 8 x 8 cm. 2. Intraoperative esophagogastroscopy 3. Placement of 56-[place] bougie ANESTHESIA: General with local anesthetic. ESTIMATED BLOOD LOSS: 5 mL Pathology: None COMPLICATIONS: None. FINDINGS: 1. Thoracic length 15 cm. 2. Port placed 12 cm distal. 3. Incarcerated upper pole of the stomach within the mediastinum with dissection performed 4. 3 cm paraesophageal incarcerated diaphragmatic hiatal hernia with moderate dissection into the mediastinum 5. [place] Biopatch A onlay mesh placed. 6. Reduction of incarcerated 3 cm superior pole of stomach from previously gastrectomy 7. GE junction at 35 cm from the incisors 8. Intra-abdominal esophageal length over 2 cm obtained INDICATIONS: The patient is a 52-year-old female who presents with epigastric abdominal pain, dysphagia, history of sleeve gastrectomy, gastroesophageal reflux recalcitrant to medical therapy with a symptomatic diaphragmatic hiatal hernia. Preoperative workup including upper endoscopy demonstrated hiatal hernia with erosive esophagitis. She completed manometry demonstrating ineffective esophageal motility including hypertensive upper esophageal sphincter. Given the severity of her symptoms, she had elected for surgical intervention. Benefits and risks including bleeding, infection, recurrence, dysphagia, injury to the lung, need for further surgery was described at length. Informed consent was obtained. DESCRIPTION: The patient was brought into the operating room and placed in supine position. Preoperatively she had received heparin subcutaneously for DVT prophylaxis. After general induction, the abdomen was prepped and draped in standard sterile fashion. The patient had previously voided prior to coming to the operating room. [place] draping was placed along the abdomen. A timeout protocol was confirmed with the surgical team, for which the patient's name, procedure to be performed including DVT prophylaxis with bilateral SCDs, and preoperative antibiotics were also confirmed. A robotic da Gloria Xi system was prepped and primed. At 15 cm from the xiphoid to just below the umbilicus, proposed port sites were marked with indelible marker along the left axillary line, left mid-clavicular line with each ports were marked 10 cm from each other. A 5 mm 0 degrees laparoscopic trocar entry was performed along the left upper quadrant. The abdomen was insufflated to 15 mmHg pressure was tolerated well. Diagnostic laparoscopy demonstrated no injury to bowel, viscera. Severe peritoneal of the lower abdomen was identified and undisturbed. No additional adhesions were found along the liver or the sleeve gastrectomy to the liver. Next, one 8 mm robotic port was placed along the right upper abdomen. An 8-mm port was were placed along the left lateral abdominal wall. The camera 8-mm port was maintained along the epigastrium. Another 12 mm port was placed along the left upper abdominal wall after exchanging the 5 mm port. Please note that the ports were placed at least 20 cm away from the target anatomy. Care was taken to check that each robotic arm were safely away from collision with the bed or the patient. The patient was repositioned in reverse Trendelenburg position at 14-degrees after lowering the bed. The robot was docked above the left side of the patient. Using a grasper for arm 3, a grasper for arm 1, including vessel sealer for arm 2, the robotic system was docked and primed as described. Instruments were interchanged by the syrup mixer assistant. I had sat at the console. Initial attention was brought to hiatus. Circumferentially the dissection at th e hiatus was performed using vessel sealer including blunt dissection. Previous retained suture was found along the hiatus consistent with a prior repair. The hiatus hernia recurred anteriorly including a retained sac acting as a lead point for recurrence. To prevent any injury to the esophagus including proximal stomach, I performed an intraoperative upper endoscopy with the scope entering along the posterior oropharynx into the distal stomach and left in place as a bougie. The remnant gastrohepatic ligament was cleaved using a vessel sealer. Next, the phrenoesophageal ligament was mobilized and the distal esophagus was mobilized circumferentially. An incarcerated hernia sac was found into the mediastinum. As a result, deep dissection well into the mediastinum was needed to free the proximal sleeve gastrectomy including the mid to distal esophagus with retained gastric funduc consistent with a type III hiatal hernia. The left and right crura was identified. Significant mobilization of the distal to mid esophagus into the mediastinum was performed. Circumferentially, the hernia sac was incised and brought into the abdominal cavity. Care was taken to avoid any gastrotomy to the incarcerated upper pole of the stomach. The measured defect was measured with a ruler consistent with 7 cm axial length and 4 cm in width. After extensive dissection, the distal esophagus at least 1 cm was brought into the abdominal cavity. Once the hiatus and crura was dissected, 2-0 VLOC suture was placed as a running suture to re-approximate the diaphragmatic hiatus posteriorly. To buttress the repair, a [place] Biopatch A was prepared along the back table and cut in a half cruz-hole fashion as to reinforce the repair as an underlay. The mesh was resized posteriorly placed along the crural repair and tagged using 2- 0 VLOC. I went to the head of the bed to perform intraoperative esophagogastroduodenoscopy. An Olympus gastroscope was passed through posterior oropharynx, where the squamocolumnar junction was confirmed at 35 cm from the incisors. The hiatus repair was confirmed from the incisors. The stomach was entered. The stomach had been desufflated. No evidence of leaks were found or mucosal defects of the esophagus or stomach. This concluded the endoscopic portion of the case. The robot was undocked from the patient. I re-scrubbed into the case. All instruments and pneumoperitoneum were evacuated from the abdominal cavity. The incisions were cleansed with dilute hydrogen peroxide with saline solution. Incisions were reapproximated using 4-0 Monocryl in an interrupted subcuticular fashion. The 12-mm port site fascial defect was less than 8 mm in size. Exofin was applied to the skin. Local anesthetic was infiltrated in all wounds for postop analgesia. Multiple intra-abdominal films were obtained. At the end of the procedure, needle, sponge, and instrument count was verified correct by the body art technician. The patient had tolerated the procedure well and was taken to the postanesthesia unit in stable condition. Intraoperative films were reviewed with the patient's family who were pleased with the level of care. Console time: 86 minutes
[2022-07-19 16:24] LABS: Basophils % (A) 0 %; Eosinophils % (A) 0 %; HCT 44.7 % (34.0-46.0); HGB 14.8 gm/dL (11.4-16.0); Lymphocytes # (A) 0.5 k/uL (1.0-4.8); Lymphocytes % (A) 5 %; MCH 32.1 pg (25.0-35.0); MCHC 33.2 g/dL (31.0-37.0); MCV 96.8 fL (80.0-100.0); Mean Platelet Volume 8.5; Monocytes # (A) 0.2 k/uL (0-1.0); Monocytes % (A) 2 %; Neutrophils # (A) 9.7 k/uL (1.3-7.7); Neutrophils % (A) 93 %; Platelet Count 263 k/uL (150-450); RBC 4.62 m/uL (3.80-5.40); WBC 10.5 k/uL (3.8-10.6)
--- NOTE | 2022-07-19 18:23 | P.PN ---
Progress Note - Text Progress Note Date: 07/19/22 Patient reports no intractable nausea and vomiting following procedure. Pending upper GI. Decadron schedule prescribed to prevent edema or obstruction.
[2022-07-19] MEDS: ONDANSETRON 4 MG/2 ML VIAL IVP SCH (18:42)
[2022-07-19] MEDS: METOCLOPRAMIDE 5 MG/ML 2 ML VIAL IVP SCH (18:42)
[2022-07-19] MEDS: SODIUM CHLORIDE 0.9% 1,000 ML IV SCH (18:43)
[2022-07-19] MEDS ORDERED: DEXAMETHASONE SOD PHOSPHATE 10 MG/ML 1 ML VIAL IVP ONE (19:00)
[2022-07-19 20:01] VITALS: RESP 16
[2022-07-19] MEDS: FAMOTIDINE 20 MG/2 ML VIAL IV SCH (20:34)
[2022-07-20] MEDS: METOCLOPRAMIDE 5 MG/ML 2 ML VIAL IVP SCH ×3 (00:32→14:27)
[2022-07-20] MEDS: DEXAMETHASONE SOD PHOSPHATE 4 MG/ML 1 ML VIAL IVP SCH ×3 (00:32→14:28)
[2022-07-20] MEDS: ONDANSETRON 4 MG/2 ML VIAL IVP SCH ×3 (00:32→14:28)
[2022-07-20 02:16] LABS: African American GFR (CKD) 91.9 (60.0-200.0); Anion Gap 11.8 mmol/L (10.00-18.00); BUN/Creat Ratio 13.18 Ratio (12.00-20.00); Blood Urea Nitrogen 11.2 mg/dL (9.0-27.0); Calcium 9.6 mg/dL (8.7-10.3); Carbon Dioxide 25.3 mmol/L (20.0-27.5); Non-African American GFR(CKD) 79.3 (60.0-200.0); Potassium 4.3 mmol/L (3.5-5.5)
[2022-07-20] MEDS: SODIUM CHLORIDE 0.9% 1,000 ML IV SCH (03:28)
[2022-07-20] MEDS: LACTATED RINGERS 1,000 ML IV SCH (07:50)
[2022-07-20] MEDS: FAMOTIDINE 20 MG/2 ML VIAL IV SCH (07:51)
[2022-07-20 08:11] VITALS: BP 109/62; PULSE 65; TEMP 97.8
--- NOTE | 2022-07-20 08:51 | FL ---
EXAMINATION TYPE: FL esophagus cervic/pharynx DATE OF EXAM: 07/20/2022 LIMITED UGI-ESOPHAGRAM: CLINICAL HISTORY: History of gastric sleeve surgery 2017. Hiatal hernia with surgical repair perform ed yesterday TECHNIQUE: Limited UGI-esophagram is performed utilizing 50 oz of [id number]-370. A total of 16 seconds of fluoroscopic time was utilized during procedure and 15 images obtained. TOTAL DAP = 649.48. FINDINGS: The patient swallowed contrast without difficulty or delay. Esophageal peristalsis and mo tility are within normal limits. There is good flow of contrast along the diaphragmatic hiatus into t he stomach, there is no evidence of contrast extravasation to suggest leak. No persistent hiatal alexia ia is seen. Patient remains asymptomatic. Tiny amount of free air below right hemidiaphragm is presum ed postsurgical. IMPRESSION: No evidence of leak or significant obstruction status post Walt fundoplication surgery yesterday.
[2022-07-20] MEDS ORDERED: ENOXAPARIN 30 MG/0.3 ML SYRINGE SQ SCH (09:00)
[2022-07-20 09:55] VITALS: BMI 38.9
--- NOTE | 2022-07-20 10:10 | P.DS ---
Providers Date of admission: 07/19/22 09:44 Expected date of discharge: 07/20/22 Attending physician: Mandi Nunez Primary care physician: Carl Rich MD Hospital Course: Patient a pre-existing gastroesophageal reflux disease. She reports resolution of her symptoms following her procedure. Esophagram negative for leak or obstruction. Otherwise patient clinically stable for discharge after tolerating diet. Follow up at the bariatric center in 1 week. Patient Condition at Discharge: Good Plan - Discharge Summary Discharge Rx Participant: Yes New Discharge Prescriptions: New Simethicone 40 mg/0.6 ml Drops [Mylicon Drops] 40 mg PO PCHS PRN #30 ml PRN Reason: Gas Ondansetron Odt [Zofran Odt] 4 mg PO Q8HR PRN #9 tab PRN Reason: Nausea bisacodyL [Dulcolax] 5 mg PO DAILY PRN #10 tab PRN Reason: Constipation Omeprazole [PriLOSEC] 40 mg PO DAILY #30 cap Acetaminophen Tab [Tylenol Tab] 1,000 mg PO Q6HR PRN #30 tablet PRN Reason: Pain Discharge Medication List Acetaminophen Tab [Tylenol Tab] 1,000 mg PO Q6HR PRN #30 tablet 07/20/22 [Rx] Omeprazole [PriLOSEC] 40 mg PO DAILY #30 cap 07/20/22 [Rx] Ondansetron Odt [Zofran Odt] 4 mg PO Q8HR PRN #9 tab 07/20/22 [Rx] Simethicone 40 mg/0.6 ml Drops [Mylicon Drops] 40 mg PO PCHS PRN #30 ml 07/20/22 [Rx] bisacodyL [Dulcolax] 5 mg PO DAILY PRN #10 tab 07/20/22 [Rx] Follow up Appointment(s)/Referral(s): [place], [place] [NON-STAFF] - 07/25/22 Patient Instructions/Handouts: Hiatal Hernia (DC) Activity/Diet/Wound Care/Special Instructions: Liquid diet only for 2 weeks until August 02June Shower. No soaking in bath tubs 2 weeks until August 02 Continue to use incentive spirometry to prevent pneumonias. Please continue to ambulate at home to prevent blood clots in legs. Please notify your surgeon if you develop nausea and vomiting including new onset of abdominal pain. No lifting over 4 pounds in 4 weeks, August 18 Drink 64 oz of fluid daily. Start protein shakes on . Notify bariatric center for temp over 101.0, increased pain, drainage from incisions. No straws or carbonated beverages. Liquid diet only. Sugar content should be less than 6 g to avoid dumping syndrome. Take MOM for constipation. CRUSH, OPEN, OR CUT TABLETS LARGER THAN A SIZE OF A TIC TAC Discharge Disposition: HOME SELF-CARE
== END 2022-07-20 15:15 | disposition home or self-care (01) | DRG 328 ==
LOC: 2ORMAIN 09:44 → 4SSUR 15:28
PROVIDERS: ADMIT Surgery Plastic and Reconstructive Surgery; ATTEND Surgery Plastic and Reconstructive Surgery
PROC: 0DJ68ZZ Inspection of Stomach, Via Natural or Artificial Opening Endoscopic (ICD-10-PCS; 2022-07-19)
PROC: 8E0W4CZ Robotic Assisted Procedure of Trunk Region, Percutaneous Endoscopic Approach (ICD-10-PCS; principal; 2022-07-19 11:30)
PROC: 0BUT4JZ Supplement Diaphragm with Synthetic Substitute, Percutaneous Endoscopic Approach (ICD-10-PCS; principal; 2022-07-19 11:30)
DX: K44.0 Diaphragmatic hernia with obstruction, without gangrene (principal); K21.9 Gastro-esophageal reflux disease without esophagitis; E66.01 Morbid (severe) obesity due to excess calories; M19.90 Unspecified osteoarthritis, unspecified site; H91.92 Unspecified hearing loss, left ear; I83.90 Asymptomatic varicose veins of unspecified lower extremity; R13.10 Dysphagia, unspecified; R16.0 Hepatomegaly, not elsewhere classified; Z68.38 Body mass index [BMI] 38.0-38.9, adult; Z98.84 Bariatric surgery status; Z71.3 Dietary counseling and surveillance
CPT/HCPCS: 74210; 80048; 83735; 85025

== ENCOUNTER → 2022-07-25 | Outpatient (CLI) | payer BC, OTHER ==
[2022-07-25 17:09] VITALS: BP 150/91; PULSE 76; RESP 16; TEMP 98; BMI 37.6
--- NOTE | 2022-09-23 21:24 | P.BASOAP ---
Subjective Progress Note Date: 07/25/22 DATE OF SERVICE: 07/25/2022 CHIEF COMPLAINT: Status post hiatal hernia repair HISTORY OF PRESENT ILLNESS: The patient is a 52-year-old female who is status post robotic-assisted laparoscopic sleeve gastrectomy on 10/29/2016. She is 3 years out. She is status post hiatal hernia repair, 07/19/2022. She is 1 week out. Pain is well controlled. No nausea or vomiting. No recurrent gastroesophageal reflux disease. At her height of 5 foot 4.25, her ideal body weight is 144 pounds. Her highest weight was 331 pounds. Her body mass index is reduced from 56.5 down to 37.6. She comes in 221 pounds from 197 pounds, 3 years ago. She has gained 15 pounds in 3 years. She has lost 110 pounds, lifetime. Percent excess weight loss is 59 %, lifetime. PHYSICAL EXAM: VITAL SIGNS: Height 5 foot 4.25 inches, weight 221 pounds. BMI 37.6 Vital Signs Temp 98 F 07/25/22 17:07 Pulse 76 07/25/22 17:07 Resp 16 07/25/22 17:07 BP 150/91 07/25/22 17:07 Pulse Ox FiO2 GENERAL: Well-developed female in no acute distress. HEENT: No scleral icterus. Extraocular was grossly intact. No nasal drainage. NECK: Supple without lymphadenopathy. CHEST: Nonlabored respirations with equal bilateral excursions. CARDIOVASCULAR: Regular rate. Distal 2+ pulses. ABDOMEN: Incisions are clean, dry and intact. MUSCULOSKELETAL: No clubbing, cyanosis, or edema. NEURO: No focal or lateralizing signs. Cranial nerves 2 through 12 grossly within normal limits. PSYCH: Appropriate affect. Alert and oriented to person, place and time. SKIN: Well perfused. Good skin turgor. ASSESSMENT: 1. Morbid obesity due to excess calories. 2. Body mass index of 56.5 to 37.6 3. Diabetes type 2, improved. 4. Obstructive sleep apnea. 5. Depression. 6. Osteoarthritis of the bilateral hips. 7. Osteoarthritis of the bilateral knees. 8. Gastroesophageal reflux disease. 9. Dietary surveillance and counseling. 10. Hypertension. 11. Vitamin D deficiency. 12. Hypercholesterolemia. 13. Status post sleeve gastrectomy. 14. Panniculitis. 15. Status post panniculectomy, 10 pounds 16. Status post hiatal hernia repair PLAN: 1. Discontinue antacids 2. Continue post-op bariatric diet for maximal weight loss. 3. Recommend follow up next week and/or 1 month post op. Objective - Vital Signs Vital signs: Vital Signs Temp 98 F 07/25/22 17:07 Pulse 76 07/25/22 17:07 Resp 16 07/25/22 17:07 BP 150/91 07/25/22 17:07 Pulse Ox FiO2 Assessment/Plan Plan: Date: 07/25/22 Initial Weight: 148.415 kg Initial BMI: 55.7 Current Weight: 100.244 kg Current BMI: 37.6 Type of Surgery: Vertical Sleeve Gastrectomy Total Volume in Band: Previous Volume: Volume Removed: Volume Added: Band Size:
== END ==
LOC: BARWHC3 16:28
PROVIDERS: ATTEND Surgery Plastic and Reconstructive Surgery
DX: E66.01 Morbid (severe) obesity due to excess calories (principal); E11.9 Type 2 diabetes mellitus without complications; G47.33 Obstructive sleep apnea (adult) (pediatric); F32.A Depression, unspecified; K21.9 Gastro-esophageal reflux disease without esophagitis; M17.0 Bilateral primary osteoarthritis of knee; M16.0 Bilateral primary osteoarthritis of hip; I10 Essential (primary) hypertension; M79.3 Panniculitis, unspecified; E78.00 Pure hypercholesterolemia, unspecified; Z98.84 Bariatric surgery status; Z71.3 Dietary counseling and surveillance; E55.9 Vitamin D deficiency, unspecified; Z98.890 Other specified postprocedural states; Z68.37 Body mass index [BMI] 37.0-37.9, adult
CPT/HCPCS: 99211

== ENCOUNTER → 2022-08-01 | Outpatient (CLI) | payer BC, OTHER ==
[2022-08-01 17:12] VITALS: BP 143/78; PULSE 78; TEMP 98; BMI 37.8
--- NOTE | 2022-08-01 17:17 | P.BASOAP ---
Subjective Progress Note Date: 08/01/22 She reports constipation. She needs lactulose and MOM. Stop omeprazole. Objective - Vital Signs Vital signs: Vital Signs Temp 98 F 08/01/22 17:10 Pulse 78 08/01/22 17:10 Resp BP 143/78 08/01/22 17:10 Pulse Ox FiO2 Intake & Output 07/31/22 08/01/22 08/01/22 18:59 06:59 18:59 Weight 100.698 kg Assessment/Plan Plan: Date: 08/01/22 Initial Weight: 148.415 kg Initial BMI: 55.7 Current Weight: 100.698 kg Current BMI: 37.8 Type of Surgery: Total Volume in Band: Previous Volume: Volume Removed: Volume Added: Band Size:
== END ==
LOC: BARWHC3 16:20
PROVIDERS: ATTEND Surgery Plastic and Reconstructive Surgery
DX: E66.01 Morbid (severe) obesity due to excess calories (principal); Z68.37 Body mass index [BMI] 37.0-37.9, adult
CPT/HCPCS: 99211

== ENCOUNTER → 2023-01-14 | Outpatient (CLI) | payer BC, OTHER ==
--- NOTE | 2023-01-15 19:20 | MM ---
Reason for Exam: Screening (asymptomatic). Last mammogram was performed 2 year(s) and 9 month(s) ago. Patient History: Menarche at age 13. First Full-Term at age 24. Postmenopausal. Risk Values: Maryuri 5 year model risk: 0.9%. NCI Lifetime model risk: 7.9%. Prior Study Comparison: 02/06/2012 Bilateral Screening Mammogram, [facility]. 02/27/2016 Bilateral Screening Mammogram, [facility]. 04/01/2020 Bilateral Screening Mammogram, [facility]. Tissue Density: There are scattered fibroglandular densities. Findings: Analyzed By CAD. Pattern appears symmetrical and stable. No significant interval changes are evident. No suspicious groups of microcalcifications, spiculated or lobular masses, architectural distortion or other secondary signs of malignancy are mammographically apparent. Overall Assessment: Negative, BI-RAD 1 Management: Screening Mammogram of both breasts in 1 year. A negative mammogram report should not preclude additional follow up of suspicious palpable abnormalities. Patient should continue monthly self breast exam. A clinical breast exam by your physician is recommended on an annual basis and results should be correlated with mammographic findings. Electronically signed and approved by: Navin Browning D.O. Radiologis
== END | disposition home or self-care (01) ==
LOC: RADMAMWWP 16:33
PROVIDERS: ATTEND Obstetrics & Gynecology
DX: Z12.31 Encounter for screening mammogram for malignant neoplasm of breast (principal); Z78.0 Asymptomatic menopausal state
CPT/HCPCS: 77067

== ENCOUNTER 2023-02-27 07:57 | Day surgery (SDC) | payer BC, OTHER ==
[2023-02-15 13:10] VITALS: BMI 36.0
--- NOTE | 2023-02-27 07:37 | P.GSHP ---
History of Present Illness H&P Date: 02/27/23 CHIEF COMPLAINT: Colon screen HISTORY OF PRESENT ILLNESS: The patient is a 52-year-old female who presents for colon screen. Lower endoscopy was offered for further evaluation and management. PAST MEDICAL HISTORY: Please see list. PAST SURGICAL HISTORY: Please see list. MEDICATIONS: Please see list. ALLERGIES: Please see list. SOCIAL HISTORY: No illicit drug use FAMILY HISTORY: No reports of Crohn disease or ulcerative colitis. REVIEW OF ORGAN SYSTEMS: CONSTITUTIONAL: No reports of fevers or chills. PHYSICAL EXAM: VITAL SIGNS: Stable GENERAL: Well-developed pleasant in no acute distress. HEENT: No scleral icterus. Extraocular movements grossly intact. Moist buccal mucosa. NECK: Supple without lymphadenopathy. CHEST: Unlabored respirations. Equal bilateral excursions. CARDIOVASCULAR: Regular rate and rhythm. Distal 2+ pulses. ABDOMEN: Soft, nontender, nondistended. MUSCULOSKELETAL: No clubbing, cyanosis, or edema. ASSESSMENT: 1. Colon screen. PLAN: 1. Recommend proceeding with a lower endoscopy Past Medical History Past Medical History: GERD/Reflux, Hearing Disorder / Deafness, Osteoarthritis (OA) Additional Past Medical History / Comment(s): Hard of hearing in left ear. Varicose veins. pt states she was told by her gynocologist she has an "inflamed bowel", History of Any Multi-Drug Resistant Organisms: None Reported Past Surgical History: Bariatric Surgery, Cholecystectomy, Orthopedic Surgery, Tubal Ligation Additional Past Surgical History / Comment(s): hiatel hernia repair,EGD, right thumb surgery, vertical sleeve gastrectomy 10-29-16 panniculectomy 07-20-19, right knee athroscopic meniscus repair. Past Anesthesia/Blood Transfusion Reactions: No Reported Reaction Additional Past Anesthesia/Blood Transfusion Reaction / Comment(s): Has never had a blood transfusion. Smoking Status: Never smoker - Past Family History Father Family Medical History: Cancer, Congestive Heart Failure (CHF), COPD, Diabetes Mellitus Additional Family Medical History / Comment(s): Prostate Cancer. Mother Family Medical History: Diabetes Mellitus Sister(s) Additional Family Medical History / Comment(s): pre cancerous cells cervical Medications and Allergies Home Medications Medication Instructions Recorded Confirmed Type Acetaminophen Tab [Tylenol Tab] 1,000 mg PO Q6HR PRN #30 tablet 07/20/22 02/15/23 Rx Multivit-Min/Folic Acid/Biotin 2 tab PO QAM 02/15/23 02/15/23 History [Hair, Skin and Nails Softgel] Allergies Allergy/AdvReac Type Severity Reaction Status Date / Time No Known Allergies Allergy Verified 02/15/23 12:12
[~2023-02-27 07:57] MED LIST changes: -ACETAMINOPHEN TAB 500 MG TAB PO STA; -CHLORHEXIDINE GLUCONATE 15 ML CUP MUCOUS MEM PRN; -DEXAMETHASONE SOD PHOSPHATE 4 MG/ML 1 ML VIAL IV ONE; -HEPARIN SODIUM,PORCINE/PF 5,000 UNIT/0.5 ML SYRINGE SQ PRN; -HYDROmorphone 0.5 MG/0.5 ML SYRINGE IVP PRN; +LACTATED RINGERS 1,000 ML IV SCH; +LIDOCAINE 1% (10MG/ML) FOR IV START INTRADERMA PRN; -MIDAZOLAM 2 MG/2 ML VIAL IV PRN; -ONDANSETRON 4 MG/2 ML VIAL IVP ONE; -PANTOPRAZOLE 40 MG/10 ML VIAL IVP PRN; -SCOPOLAMINE 1 MG/72 HR PATCH TRANSDERM STA; -droPERidol 5 MG/2 ML VIAL IVP ONE
[2023-02-27] MEDS ORDERED: PROPOFOL 10 MG/ML 20 ML VIAL IV ONE (08:28)
[2023-02-27 08:41] VITALS: TEMP 97.6
[2023-02-27 09:07] VITALS: RESP 14
--- NOTE | 2023-02-27 09:27 | P.PCN ---
Date of Procedure: 02/27/23 Description of Procedure: PREOPERATIVE DIAGNOSIS: Colonoscopy screening. Family history colon polyps POSTOPERATIVE DIAGNOSIS: Colonoscopy screening. Diverticulosis, scattered. OPERATION: Colonoscopy to the cecum, ileocecal valve and appendiceal orifice. SURGEON: Mandi Nunez MD. ANESTHESIA: MAC. INDICATIONS: The patient is a 52-year-old female who presents for colonoscopy screening. Benefits and risks were described and informed consent was obtained. DESCRIPTION OF PROCEDURE: The patient had undergone Golytely prep. The patient had been brought into the operating room and laid in the left lateral decubitus position. After adequate intravenous sedation, the rectum was examined with 2% lidocaine jelly. No external hemorrhoids were encountered. The rectal tone was within normal limits. No lesions were palpated in the rectal vault. An Olympus colonoscope was advanced until the cecum, ileocecal valve and appendiceal orifice were clearly viewed. The prep was good. Scattered diverticulosis was encountered. No colonic polyps were found. No evidence of focal colitis was found. Retroflexion of the scope demonstrated grade 1 internal hemorrhoids without active bleeding or inflammation. The colon was desufflated. The patient had tolerated the procedure well. Withdrawal time was over 6 minutes. FINDINGS: Aronchick preparation quality scale 2 (1-5) Internal hemorrhoids, grade 1 No external prolapsed hemorrhoids. No arteriovenous malformations. No adenomatous polyps. No focal colitis. Scattered sigmoid diverticulosis RECOMMENDATIONS: Lower endoscopy in 5 years2028 Plan - Discharge Summary Discharge Rx Participant: No New Discharge Prescriptions: Continue Acetaminophen Tab [Tylenol] 1,000 mg PO Q6HR PRN #30 tablet PRN Reason: Pain Multivit-Min/Folic Acid/Biotin [Hair, Skin and Nails Softgel] 2 tab PO QAM Discharge Medication List Acetaminophen Tab [Tylenol] 1,000 mg PO Q6HR PRN #30 tablet 07/20/22 [Rx] Multivit-Min/Folic Acid/Biotin [Hair, Skin and Nails Softgel] 2 tab PO QAM 02/15/23 [History] Follow up Appointment(s)/Referral(s): Mandi Nunez MD [STAFF PHYSICIAN] - As Needed Patient Instructions/Handouts: Diverticulosis Diet (GEN), Diverticulosis (GEN) Activity/Diet/Wound Care/Special Instructions: Repeat colonoscopy in 5 years2028 Discharge Disposition: HOME SELF-CARE
[2023-02-27 09:31] VITALS: BP 119/80; PULSE 57
== END 2023-02-27 09:49 | disposition home or self-care (01) ==
LOC: ORWHC2ENDO 07:57
PROVIDERS: ATTEND Surgery Plastic and Reconstructive Surgery
DX: Z12.11 Encounter for screening for malignant neoplasm of colon (principal); K21.9 Gastro-esophageal reflux disease without esophagitis; M19.90 Unspecified osteoarthritis, unspecified site; Z90.49 Acquired absence of other specified parts of digestive tract
CPT/HCPCS: J2704; G0121

== ENCOUNTER → 2024-02-07 | Outpatient (CLI) | payer BC ==
--- NOTE | 2024-02-11 11:56 | MM ---
Reason for Exam: Screening (asymptomatic). Last mammogram was performed 1 year(s) and 1 month(s) ago. Patient History: Menarche at age 13. First Full-Term at age 24. Postmenopausal. Risk Values: Maryuri 5 year model risk: 0.9%. NCI Lifetime model risk: 7.8%. Prior Study Comparison: 02/27/2016 Bilateral Screening Mammogram, [facility]. 04/01/2020 Bilateral Screening Mammogram, [facility]. 01/14/2023 Bilateral MG screening mammo w CAD, [facility]. Tissue Density: There are scattered areas of fibroglandular density. Findings: Analyzed By CAD. There is no suspicious group of microcalcifications or new suspicious mass in either breast. Overall Assessment: Benign, BI-RAD 2 Management: Screening Mammogram of both breasts in 1 year. . Patient should continue monthly self-breast exams. A clinical breast exam by your physician is recommended on an annual basis. This exam should not preclude additional follow-up of suspicious palpable abnormalities. Note on Maryuri scores and lifetime risk: 1. A Maryuri score greater than 3% is considered moderate risk. If this is the case, consider specialist referral to assess eligibility for a risk reducing agent. 2. If overall lifetime risk for the development of breast cancer is 20% or higher, the patient may qualify for future screening with alternating mammogram and breast MRI. [facility], , 02/11/2024 11:53 AM. Electronically signed and approved by: Marek Jeong M.D. Radiologis
== END | disposition home or self-care (01) ==
LOC: RADMAMWWP 12:17
PROVIDERS: ATTEND Obstetrics & Gynecology
DX: Z12.31 Encounter for screening mammogram for malignant neoplasm of breast (principal); Z78.0 Asymptomatic menopausal state; R92.323 Mammographic fibroglandular density, bilateral breasts
CPT/HCPCS: 77063; 77067

== ENCOUNTER → 2024-04-13 | Outpatient (CLI) | payer BC ==
[2024-04-13 11:27] LABS: Partial Thromboplastin Time 23.1 sec (22.0-30.0); Prothrombin Time 10.5 sec (10.0-12.5)
[2024-04-13 11:32] LABS: INR 0.9 (<1.2)
[2024-04-13 15:03] LABS: HCT 41.8 % (37.2-46.3); HGB 13.6 g/dL (12.0-15.0); MCH 31.3 pg (27.0-32.0); MCHC 32.5 g/dL (32.0-37.0); MCV 96.3 FL (80.0-97.0); Mean Platelet Volume 10.6 FL (9.5-12.2); NRBC Per 100 WBC 0 X 10*3/uL (0.00-0.01); Platelet Count 318 X 10*3/uL (140-440); RBC 4.34 X 10*6/uL (4.10-5.20); RDW 13.2 % (11.5-14.5); WBC 5.54 X 10*3/uL (4.50-10.00)
[2024-04-13 16:21] LABS: Chol/HDL Ratio 2.63 Ratio; LDL Cholesterol,Calculated 129.1 mg/dL (0.0-131.0)
[2024-04-13 16:22] LABS: ALT 18 U/L (8-44); AST 21 U/L (13-35); Albumin 4.3 g/dL (3.8-4.9); Albumin/Globulin Ratio 1.72 Ratio (1.60-3.17); Alkaline Phosphatase 76 U/L (41-126); BUN/Creat Ratio 16.67 Ratio (12.00-20.00); Calcium 9.7 mg/dL (8.7-10.3); Carbon Dioxide 23.9 mmol/L (21.6-31.8); Chloride 103 mmol/L (96-109); Ferritin 56.5 ng/mL (10.0-291.0); Globulin 2.5 g/dL (1.6-3.3); Glucose 80 mg/dL (70-110); Iron 101 UG/DL (50-170); Phosphorus 3.6 mg/dL (2.4-5.1); Potassium 3.9 mmol/L (3.5-5.5); Sodium 139 mmol/L (135-145); Total Bilirubin 0.5 mg/dL (0.3-1.2); Total Iron Binding Capacity 428 UG/DL (228-460); Total Protein 6.8 g/dL (6.2-8.2)
[2024-04-14 13:00] LABS: Zinc, Serum 88 ug/dL (60-130)
[2024-04-15 08:18] LABS: Vitamin A 64 ug/dL (38-106)
== END | disposition home or self-care (01) ==
LOC: LABWHC1 07:39
PROVIDERS: ATTEND Surgery Plastic and Reconstructive Surgery
DX: Z51.81 Encounter for therapeutic drug level monitoring (principal); Z48.298 Encounter for aftercare following other organ transplant; E89.1 Postprocedural hypoinsulinemia; D50.8 Other iron deficiency anemias; E44.0 Moderate protein-calorie malnutrition; E55.9 Vitamin D deficiency, unspecified; D84.9 Immunodeficiency, unspecified; E45 Retarded development following protein-calorie malnutrition; K74.1 Hepatic sclerosis; K50.90 Crohn's disease, unspecified, without complications; N19 Unspecified kidney failure; T56.894A Toxic effect of other metals, undetermined, initial encounter; Z94.4 Liver transplant status; Z79.899 Other long term (current) drug therapy
CPT/HCPCS: 36415; 80053; 80061; 82306; 82525; 82607; 82728; 82746; 83036; 83540; 83550; 83735; 83970; 84100; 84134; 84255; 84425; 84443; 84590; 84630; 85027; 85610; 85730

== ENCOUNTER → 2024-04-27 | Outpatient (CLI) | payer BC ==
--- NOTE | 2024-04-27 09:50 | FL ---
EXAMINATION TYPE: FL barium swallow DATE OF EXAM: 04/27/2024 CLINICAL HISTORY: pt with a gastric sleeve 2017 with GB removal. panniculectomy 2019. now with recen t indigestion, reflux. sour burps and feeling of chest pains. fl time of 0.59 mins The patient ingested contrast without difficulty or delay. Noted are postsurgical changes of gastric sleeve. There is no evidence for leak or obstruction. Contrast is noted within the duodenum. No s izable hiatal hernia appreciated. IMPRESSION: Overall unremarkable study. [facility], , 04/27/2024 9:47 AM
== END | disposition home or self-care (01) ==
LOC: RADFLMAIN 08:31
PROVIDERS: ATTEND Surgery Plastic and Reconstructive Surgery
DX: R13.10 Dysphagia, unspecified (principal)
CPT/HCPCS: 74220

== ENCOUNTER 2024-06-08 06:39 | Day surgery (SDC) | payer BC ==
--- NOTE | 2024-06-08 06:05 | P.GSHP ---
History of Present Illness H&P Date: 06/08/24 CHIEF COMPLAINT: Esophageal stricture HISTORY OF PRESENT ILLNESS: The patient is a 54-year-old female who presents reports dysphagia. Upper endoscopy was offered for further evaluation and management. PAST MEDICAL HISTORY: Please see list. PAST SURGICAL HISTORY: Please see list. MEDICATIONS: Please see list. ALLERGIES: Please see list. SOCIAL HISTORY: No illicit drug use FAMILY HISTORY: No reports of Crohn disease or ulcerative colitis. REVIEW OF ORGAN SYSTEMS: CONSTITUTIONAL: No reports of fevers or chills. GI: Denies any blood in stools or constipation. PHYSICAL EXAM: VITAL SIGNS: Stable GENERAL: Well-developed and pleasant in no acute distress. HEENT: No scleral icterus. Extraocular movements grossly intact. Moist buccal mucosa. NECK: Supple without lymphadenopathy. CHEST: Unlabored respirations. Equal bilateral excursions. CARDIOVASCULAR: Regular rate and rhythm. Distal 2+ pulses. ABDOMEN: Soft, nondistended. MUSCULOSKELETAL: No clubbing, cyanosis, or edema. ASSESSMENT: 1. Esophageal stricture PLAN: 1. Recommend proceeding with an upper endoscopy with rigid dilators. Past Medical History Past Medical History: GERD/Reflux, Hearing Disorder / Deafness, Osteoarthritis (OA) Additional Past Medical History / Comment(s): Hard of hearing in [place] ear. Varicose veins. History of Any Multi-Drug Resistant Organisms: None Reported Past Surgical History: Bariatric Surgery, Cholecystectomy, Orthopedic Surgery, Tubal Ligation Additional Past Surgical History / Comment(s): hiatel hernia repair,EGD, right thumb surgery, vertical sleeve gastrectomy 10-29-16 panniculectomy 07-20-19, right knee athroscopic meniscus repair. Colonoscopy. laser eye surgery for closed angle glaucoma Past Anesthesia/Blood Transfusion Reactions: No Reported Reaction Additional Past Anesthesia/Blood Transfusion Reaction / Comment(s): Has never had a blood transfusion. Smoking Status: Never smoker - Past Family History Father Family Medical History: Cancer, Congestive Heart Failure (CHF), COPD, Diabetes Mellitus Additional Family Medical History / Comment(s): Prostate Cancer. Mother Family Medical History: Diabetes Mellitus Sister(s) Additional Family Medical History / Comment(s): pre cancerous cells cervical Medications and Allergies Home Medications Medication Instructions Recorded Confirmed Type Acetaminophen Tab [Tylenol] 1,000 mg PO Q6HR PRN #30 tablet 07/20/22 06/02/24 Rx Fezolinetant [Veozah] 1 tab PO HS 04/08/24 06/02/24 History Melatonin 10 mg PO HS 04/08/24 06/02/24 History Naltrexone HCl/Bupropion HCl 1 tab PO DAILY 06/02/24 06/02/24 History [Contrave ER 8-90 mg Tablet] Topiramate 100 mg PO HS 06/02/24 06/02/24 History Allergies Allergy/AdvReac Type Severity Reaction Status Date / Time No Known Allergies Allergy Verified 06/02/24 11:39
[2024-06-08] MEDS: IV FLUID CONTINUATION 1,000 ML IV ONE (07:06)
[2024-06-08] MEDS ORDERED: LIDOCAINE 1% (10MG/ML) FOR IV START INTRADERMA PRN (07:07)
[2024-06-08 07:12] VITALS: RESP 16; TEMP 97.1
[2024-06-08] MEDS: LACTATED RINGERS 1,000 ML IV SCH (07:19)
[2024-06-08] MEDS ORDERED: PROPOFOL 10 MG/ML 20 ML VIAL IV ONE (07:33)
--- NOTE | 2024-06-08 08:05 | P.PCN ---
Date of Procedure: 06/08/24 Description of Procedure: PREOPERATIVE DIAGNOSIS: Dysphagia Status post sleeve gastrectomy. Gastroesophageal reflux disease. Epigastric abdominal pain. POSTOPERATIVE DIAGNOSIS: Presbyesophagus Status post sleeve gastrectomy. Gastroesophageal reflux disease. Erosive esophagitis, chronic. Diaphragmatic hiatal hernia without obstruction. OPERATION: Esophagogastroduodenoscopy with cold forceps biopsies along the duodenum, esophagus antrum. SURGEON: Mandi Nunez MD ANESTHESIA: MAC. INDICATIONS: The patient is a 54-year-old female who presents with dysphagia including gastroesophageal reflux disease a history of sleeve gastrectomy with abdominal pain. She is over 5 years out from her bariatric procedure. Benefits and risks of the procedure were described. Informed consent was obtained. DESCRIPTION: The patient was brought into the endoscopy suite and laid in the left lateral decubitus position. An Olympus gastroscope was passed along the posterior oropharynx down to the distal esophagus where the squamocolumnar junction was at 35 centimeters from the incisors remarkable for chronic erosive esophagitis, LA grade A without ulceration. The stomach was entered where she had a 2-cm hiatal hernia with a diaphragmatic hiatus found at 37 cm. The sleeve reservoir moderately large allowing easy retroflexion of the scope to view the lower esophageal valve. Chronic gastritis albeit mild was found along the antrum with cold biopsies obtained. The first through third portion of the duodenum was examined and unremarkable. The scope again had easily retroflexed along the antrum. The stomach was desufflated. The patient tolerated the procedure well. FINDINGS: No acute ulceration found along her sleeve. No corkscrewing sleeve gastrectomy. Squamocolumnar junction at 35 cm from the incisors. Diaphragmatic hiatus at 37 cm. Sliding-type diaphragmatic hiatal hernia, 2 cm Gastric reservoir allowing retroflexion of the gastroscope to view the lower esophageal valve. LA grade A erosive esophagitis. Biopsies obtained Biopsies obtained of the duodenum Chronic gastritis. Biopsies obtained RECOMMENDATIONS: On review of medications, Contrave side effects include heartburn/reflux. Recommend discontinue for 2 weeks for symptom resolution Plan - Discharge Summary Discharge Rx Participant: No New Discharge Prescriptions: Continue Naltrexone HCl/Bupropion HCl [Contrave ER 8-90 mg Tablet] 1 tab PO DAILY Topiramate 100 mg PO HS Acetaminophen Tab [Tylenol] 1,000 mg PO Q6HR PRN #30 tablet PRN Reason: Pain Fezolinetant [Veozah] 1 tab PO HS Melatonin 10 mg PO HS Discharge Medication List Acetaminophen Tab [Tylenol] 1,000 mg PO Q6HR PRN #30 tablet 07/20/22 [Rx] Fezolinetant [Veozah] 1 tab PO HS 04/08/24 [History] Melatonin 10 mg PO HS 04/08/24 [History] Naltrexone HCl/Bupropion HCl [Contrave ER 8-90 mg Tablet] 1 tab PO DAILY 06/02/24 [History] Topiramate 100 mg PO HS 06/02/24 [History] Follow [facility]ment(s[facility] [place] [place] [facility] - 06/24/24 3:00 pm Patient Instructions/Handouts: GERD (Gastroesophageal Reflux Disease) (DC) Activity/Diet/Wound Care/Special Instructions: Recommend discontinuing Contrave for 2 weeks until follow-up in bariatric office Discharge Disposition: HOME SELF-CARE
[2024-06-08 08:13] VITALS: BP 112/80; PULSE 64
== END 2024-06-08 08:36 | disposition home or self-care (01) ==
LOC: ORWHC2ENDO 06:39
PROVIDERS: ATTEND Surgery Plastic and Reconstructive Surgery
DX: K29.80 Duodenitis without bleeding (principal); Z98.84 Bariatric surgery status; K31.9 Disease of stomach and duodenum, unspecified; K22.10 Ulcer of esophagus without bleeding; K21.9 Gastro-esophageal reflux disease without esophagitis; K44.9 Diaphragmatic hernia without obstruction or gangrene
CPT/HCPCS: 88305; 43239; J2704

== ENCOUNTER → 2024-06-22 | Outpatient (CLI) | payer BC ==
[2024-06-22] MEDS: CYANOCOBALAMIN 1,000 MCG/ML 1 ML VIAL IM ONE (07:32)
[2024-06-22 07:36] VITALS: BP 112/77; PULSE 60; RESP 16; TEMP 97.7
== END ==
LOC: PROCWHC3 07:25
PROVIDERS: ATTEND Surgery Plastic and Reconstructive Surgery
DX: D51.9 Vitamin B12 deficiency anemia, unspecified (principal)
CPT/HCPCS: 96372; J3420

== ENCOUNTER → 2024-06-24 | Outpatient (CLI) | payer BC ==
[2024-06-24 15:48] VITALS: BP 133/83; PULSE 67; RESP 16; TEMP 97.8; BMI 37.1
--- NOTE | 2024-06-24 17:14 | P.BASOAP ---
Subjective Progress Note Date: 06/24/24 Needs journal. Labs. Fix TSH. Only 48 oz. Need 100z. Sleep at 9 pm. Sent synthroid. Objective - Vital Signs Vital signs: Vital Signs Temp 97.8 F 06/24/24 15:45 Pulse 67 06/24/24 15:45 Resp 16 06/24/24 15:45 BP 133/83 06/24/24 15:45 Pulse Ox FiO2 Intake & Output 06/23/24 06/24/24 06/24/24 18:59 06:59 18:59 Weight 98.883 kg Assessment/Plan Plan: Date: 06/24/24 Initial Weight: 148.415 kg Initial BMI: 55.7 Current Weight: 98.883 kg Current BMI: 37.1 Type of Surgery: Vertical Sleeve Gastrectomy Total Volume in Band: Previous Volume: Volume Removed: Volume Added: Band Size:
== END ==
LOC: BARWHC3 14:55
PROVIDERS: ATTEND Surgery Plastic and Reconstructive Surgery
DX: E66.01 Morbid (severe) obesity due to excess calories (principal); Z68.37 Body mass index [BMI] 37.0-37.9, adult
CPT/HCPCS: 99211

== ENCOUNTER → 2024-08-18 | Outpatient (CLI) | payer BC | END | disposition home or self-care (01) | LOC: LABWHC1 07:07 | PROVIDERS: ATTEND Surgery Plastic and Reconstructive Surgery | DX: E03.9 Hypothyroidism, unspecified (principal) | CPT/HCPCS: 36415; 84443 ==

== ENCOUNTER → 2024-08-19 | Outpatient (CLI) | payer BC ==
[2024-08-19 16:05] VITALS: BP 117/44; PULSE 71; RESP 16; TEMP 97.9; BMI 37.1
--- NOTE | 2024-08-19 16:40 | P.BASOAP ---
Subjective Progress Note Date: 08/19/24 She has maintained weight. Under 900 je[address]re with 120 g protein. Maintain. TSH is great and did refill for 1 year. Needs to poop Objective - Vital Signs Vital signs: Vital Signs Temp 97.9 F 08/19/24 16:02 Pulse 71 08/19/24 16:02 Resp 16 08/19/24 16:02 BP 117/44 08/19/24 16:02 Pulse Ox FiO2 Intake & Output 08/18/24 08/19/24 08/19/24 18:59 06:59 18:59 Weight 98.883 kg Assessment/Plan Plan: Date: 08/19/24 Initial Weight: 148.415 kg Initial BMI: 55.7 Current Weight: 98.883 kg Current BMI: 37.1 Type of Surgery: Vertical Sleeve Gastrectomy Total Volume in Band: Previous Volume: Volume Removed: Volume Added: Band Size:
== END ==
LOC: BARWHC3 15:51
PROVIDERS: ATTEND Surgery Plastic and Reconstructive Surgery
DX: E66.01 Morbid (severe) obesity due to excess calories (principal); Z68.37 Body mass index [BMI] 37.0-37.9, adult
CPT/HCPCS: 99211